=== PATIENT | female | born 1940 | race Caucasian/White ===

== ENCOUNTER 2019-10-26 10:57 | Outpatient (CLI) | payer MEDICARE, SELFPAY ==
--- NOTE | ~2019-10-26 | CT_ITS ---
EXAMINATION: CT chest wo con EXAM DATE: 10/26/2019 11:39 INDICATION: Shortness of breath, interstitial lung disease. TECHNIQUE: Spiral CT of the chest without contrast. Axial, coronal and sagittal images were reviewe d. Coronal maximum intensity pixel images of chest reviewed. The dose-length product (DLP) for this examination was 285.60 mGy-cm. The exposure was tailored according to patient size (auto mA exposur e control), and iterative reconstruction (ASIR) was used as additional dose reduction technique. The re is no prior study for comparison. FINDINGS: There is extensive bilateral interlobular septal thickening with interspersed groundglass opacities, progression in this appearance compared to previous exam. Differential diagnosis includes hypersensitivity pneumonitis and nonspecific interstitial pneumonitis (NSIP) pattern interstitial rene g disease which can be caused by collagen vascular disease, medications/drugs, or can be idiopathic. The main, central pulmonary arteries are dilated which can indicate elevated pulmonary arterial press ure, pulmonary arterial hypertension. There are no pleural or pericardial effusions. Tracheobronch ial tree is patent. Again there are pathologically enlarged hilar and mediastinal lymph nodes, a la rger precarinal lymph node measuring 1.4 x 1.8 cm. There is evidence of severe arteriosclerotic disea se in the aorta at the aortic hiatus. This has also progressed compared to prior study. There is no p neumothorax. There is cardiomegaly. There is moderate coronary arterial calcification, arterial sc lerosis. Upper abdomen is unremarkable. Range again there is a compression fracture at the superio r endplate of T9 with mild to moderate loss of this vertebral body height. There is moderate thoracic disc disease. IMPRESSION: 1. Mild progression in extensive interlobular septal thickening, groundglass opacities. 2. Persistent mediastinal, hilar lymphadenopathy, can be a feature of interstitial lung disease. 3. Severe distal thoracic aortic arterial sclerosis, causing significant narrowing of the aortic lum en. 4. Cardiomegaly. Reviewed, dictated and finalized at location A. R MAKER IMPRESSION: 1. Mild progression in extensive interlobular septal thickening, groundglass o pacities. 2. Persistent mediastinal, hilar lymphadenopathy, can be a feature of intersti tial lung disease. 3. Severe distal thoracic aortic arterial sclerosis, causing significant narro wing of the aortic lumen. 4. Cardiomegaly.
== END 2019-10-26 10:58 | disposition home or self-care (01) ==
PROVIDERS: PCP Family Medicine; Visit Provider Nurse Practitioner Family
DX: R06.02 Shortness of breath (principal); I51.7 Cardiomegaly; R91.8 Other nonspecific abnormal finding of lung field
CPT/HCPCS: 71250

== ENCOUNTER 2019-11-14 08:46 | Emergency (ER) | payer MEDICARE, SELFPAY ==
[2019-11-14] VITALS (13 sets, daily range): BP systolic 103–111; BP diastolic 70–85; PULSE 72–91; RESP 15–31; TEMP 38; O2SAT 77–99
--- NOTE | ~2019-11-14 | XR_ITS ---
XR chest 2V 11/14/2019 09:26 Indication: Cough and dyspnea Procedure: PA and lateral views of the chest Comparison: No prior studies for comparison. Findings: Cardiomegaly. Bilateral airspace disease is present. There is chronic fibrosis in the lung bases. There is atherosclerosis of the aorta. There are advanced degenerative changes of the glenohum eral joints. Impression: 1: Bilateral airspace disease superimposed on chronic pulmonary fibrosis. Differential diagnosis incl udes edema and pneumonia. 2: Cardiomegaly. Reviewed, dictated and finalized at location A. Impression: 1: Bilateral airspace disease superimposed on chronic pulmonary fibrosis. Diffe rential diagnosis includes edema and pneumonia. 2: Cardiomegaly.
--- NOTE | 2019-11-14 08:57 | ECG_ITS ---
Measurements Intervals [place] Rate: 80 P: -27 MO: 198 QRS: -40 QRSD: 94 T: 87 QT: 328 QTc: 379 Interpretive Statements SINUS RHYTHM LEFT AXIS DEVIATION POOR R WAVE PROGRESSION, ANTERIOR LEADS NONSPECIFIC ST & T-WAVE ABNORMALITY- LATERAL LEADS BASELINE WANDER- I BORDERLINE ECG Electronically Signed On 11-14-2019 15:34:10 CDT by Jesse Miguel D.O.
[2019-11-14 09:05] LABS: Basophils Absolute Auto 0.1 K/mm3 (0.0-0.1); Basophils Percent Auto 0.4 % (0.2-1.2); Eosinophils Absolute Auto 0.1 K/mm3 (0-0.3); Eosinophils Percent Auto 0.9 % (0-4.4); Hematocrit 42.9 % (37.0-47.0); Hemoglobin 13.9 g/dL (12.0-15.0); Immature Granulocyte Absolute 0.04 K/mm3 (0.00-0.031); Immature Granulocyte Percent A 0.4 % (0-0.5); Lymphocytes Absolute Auto 2.22 K/mm3 (0.9-3.2); Lymphocytes Percent Auto 19.7 % (18.3-44.2); Mean Corpuscular HGB Conc 32.4 g/dl (32-36); Mean Corpuscular Hemoglobin 30.3 pg (26-34); Mean Corpuscular Volume 93.5 fl (80-100); Mean Platelet Volume 10.7 fl (7.4-10.4); Monocytes Percent Auto 9.2 % (2.6-8.5); Neutrophils Absolute Auto 7.8 K/mm3 (1.3-6.7); Neutrophils Percent Auto 69.4 % (45.5-73.1); Platelet Count Result 243 k/mm3 (150-375); Red Blood Count 4.59 M/mm3 (4.2-5.4); Red Cell Distribution Width 13.7 % (11.5-14.5); White Blood Count 11.3 K/mm3 (4.5-10.0)
[2019-11-14 09:16] LABS: Blood Urea Nitrogen 21 mg/dL (7-17); Calcium 9.1 mg/dL (8.4-10.2); Carbon Dioxide 26 mmol/L (22-30); Chloride 107 mmol/L (98-107); Estimated CRCL calculation 40 ml/min; Estimated Glomerular Filt Rate 53; Glucose 110 mg/dL (65-105); Potassium 3.9 mmol/L (3.4-5.0); Sodium 138 mmol/L (137-145)
[2019-11-14 09:47] LABS: NT Pro B Type Natriuretic Pept 591 PG/ML (5-100)
--- NOTE | 2019-11-14 09:52 | ED.URI ---
HPI - URI/Sore Throat General Chief Complaint: Upper Respiratory Infection Stated Complaint: Cough, dyspnea Time Seen by Provider: 11/14/19 09:08 Source: patient and family Mode of arrival: ambulatory Limitations: no limitations History of Present Illness HPI Narrative: Patient presents with chief complaint of nonproductive cough for 1 week. Patient states that she feels as if she needs to get phlegm up which she cannot. Patient states she also feels increased shortness of breath but states she has had issues with shortness of breath since a knee surgery in 2011. Patient states that prior dyspnea worsens with exertion and when laying flat. Family states that patient has not been wearing her home oxygen lately. Patient is instructed to wear supplemental oxygen between 2 to 3 L at home but has not been wearing it lately as she does not think she needs it. Patient denies having COPD or chronic lung disease despite needing home oxygen. Patient denies any fever, chills, nausea, vomiting, abdominal pain, chest pain, decreased p.o. intake. Patient states that she is a former smoker. Patient has not taken anything to alleviate her symptoms. Patient has recent prolonged travel. Related Data Home Medications Medication Instructions Recorded Confirmed amlodipine 10 mg tablet 10 mg PO DAILY 10/29/19 aspirin 81 mg tablet,delayed 81 mg PO DAILY 10/29/19 release calcium carbonate 600 mg calcium 600 mg PO DAILY 10/29/19 (1,500 mg) tablet cetirizine 10 mg tablet 5 mg PO DAILY PRN 10/29/19 cholecalciferol (vitamin D3) 50 2,000 unit PO DAILY 10/29/19 mcg (2,000 unit) tablet ferrous sulfate 325 mg (65 mg 325 mg PO DAILY 10/29/19 iron) tablet lactobacillus combination no.8 3 3,000 mmu cells PO DAILY 10/29/19 billion cell capsule oxybutynin chloride 10 mg 10 mg PO DAILY 10/29/19 tablet,extended release 24 hr Allergies Allergy/AdvReac Type Severity Reaction Status Date / Time Penicillins Allergy Unknown Verified 09/24/18 12:42 Review of Systems Review of Systems: Narrative: CONSTITUTIONAL: Denies fever, chills, or sweats. EYES: Denies visual changes, redness, or discharge. ENT: Denies rhinorrhea, congestion, sore throat, or otalgia. CARDIOVASCULAR: Denies chest pain, palpitations, or edema. RESPIRATORY: Reports cough or dyspnea. GASTROINTESTINAL: Denies abdominal pain, nausea, vomiting, or diarrhea. GENITOURINARY: Denies dysuria or hematuria. SKIN: Denies rash or itching. MUSCULOSKELETAL: Denies back pain, joint pain, or myalgia. NEUROLOGIC: Denies headache, numbness, dizziness, or weakness. PSYCHIATRIC: Denies anxiety or depression. [facility] Past Medical History Medical History (Updated 11/14/19 @ 10:11 by Sandy Winchester PA-C) CHF (congestive heart failure) Hypertension Impacted cerumen of both ears Low iron Pulmonary fibrosis Family History Family History (Updated 09/24/18 @ 12:46 by DOCTOR UNKNOWN) Other Diabetes mellitus Social History Social History (Updated 10/29/19 @ 11:41 by Padmaja rCouch [facility]) Smoking packs per day: 2 Smoking cigarettes per day: 40.0 Years smoked: 15 Smoking pack-years: 30.00 Smoking status: Former smoker Tobacco type: cigarettes Second hand tobacco smoke exposure: No Smoking end date: 09/08/70 Alcohol intake: current Substance use: never Gender identity (if verbalized by the patient): Female Exam Narrative: Exam Narrative: GENERAL: Well-appearing, well-nourished, and in no acute distress. HEAD: Normocephalic, atraumatic. EYES: PERRLA and EOMI. ENT: Nares clear, no rhinorrhea or epistaxis. Mucous membranes moist. Oropharynx without tonsillar hypertrophy exudate or other lesions. Bilateral TMs pearly wyatt nonbulging. Nasal canula in place at 2L. NECK: Supple. No adenopathy or masses. CHEST: Clear to auscultation. No respiratory distress. No wheezes rales or rhonchi. No tachypnea or labored breathing. Nonproductive cough noted during e
== END 2019-11-14 10:34 | disposition home or self-care (01) ==
PROVIDERS: Physician Assistant; Emergency Provider Emergency Medicine; PCP Family Medicine
DX: J18.1 Lobar pneumonia, unspecified organism (principal); I50.9 Heart failure, unspecified; I11.0 Hypertensive heart disease with heart failure; F17.210 Nicotine dependence, cigarettes, uncomplicated; I51.7 Cardiomegaly; J84.10 Pulmonary fibrosis, unspecified; R94.31 Abnormal electrocardiogram [ECG] [EKG]
CPT/HCPCS: 36415; 71046; 80048; 83880; 85025; 87804; 93005; 99284

== ENCOUNTER 2020-05-23 12:30 | Outpatient (RCR) | payer MEDICARE, SELFPAY ==
--- NOTE | 2020-03-28 16:01 | PTOPEVAL ---
PHYSICAL THERAPY EVALUATION AND PLAN OF CARE 03-28-2020 The PT evaluation was completed for the diagnosis of dorsalgia and weakness. The plan of treatment is scheduled for 2x/week for 4 weeks. Thank you for referring Jacqui Browne to [facility]. Please review, sign, date and return this plan of care LEROY. I agree with and certify that the following plan of care is medically necessary. Referring Physician Date Attending Provider: Lucía Breaux NP *PT Outpatient Evaluation Start: 03/28/20 15:00 Document 03/28/20 15:01 DONTAE (Rec: 03/28/20 15:54 DONTAE [id number]) Therapy Assessment Status Assessment Status Assessment Status Evaluation Outpatient Past Medical History Past Medical History Source of Past Medical History Patient Neurological History Hx Neurological Disorders No Significant History Cardiovascular History Hx Heart Murmur Yes Hx Hypercholesterolemia Yes: meds control Hx Hypertension Yes: meds control Respiratory History Hx Pneumonia Yes Hx Other Respiratory Disorders Yes: LUNG MASS REMOVED 30 YEARS AGO Gastrointestinal History Hx Gastrointestinal Disorders No Significant History Genitourinary History Hx Genitourinary Disorders No Significant History Musculoskeletal History Hx Back Pain Yes Hx Joint Replacement Yes: R KNEE Endocrine History Hx Endocrine Disorders No Significant History Evaluation Information Problem Diagnosis dorsalgia, muscle weakness Onset December 08, 2019 Subjective Information gradual increase in weakness; Query Text:As Reported By Patient/ no falls; Family Prior Level of Function Activity Level (Last 3 Months) Occupation retired Activity of Daily Living Ability Independent Indoor/Home Mobility Independent Community Mobility Independent Stairs Ability Independent Functional Cognition (Planning, Shopping Independent , Taking Medications) Cooking Yes Cleaning Yes Laundry Yes Shopping Yes Driving Yes Home Setting Home Type Apartment,Single Level Environmental Barriers Stairs, None Living Situation Alone Support Available Local Family Support Mobility Assistive Devices (Used Last 3 Cane,Walker, Rollator,Walker, Months) Wheeled Comments Additional Prior Level of Function use 2-3L oxygen, walking Comments distances and increased activity; portable oxygen tank is heavy and hard to carry
--- NOTE | 2020-04-25 14:17 | PTOPEVAL ---
PHYSICAL THERAPY RE-EVALUATION AND UPDATED PLAN OF CARE 04-25-2020 Christa has received a total of 8 PT sessions, from March 28 to today, for the diagnosis of LE weakness, gait and balance. She has improved with R and L LE strength, TUG, Lee balance score; The 2 minute walk test was about the same, she is limited due to SOB. She is independent with her home exercise program for leg strengthening. All of the goals were achieved, except the 2 minute walking distance. Treatment will be discontinued for her leg strength and gait balance. New orders were received for cervicalgia. Her neck was evaluated today and plan of care was updated for treatment of her neck. Thank you for referring Jacqui Browne to [facility].? She is scheduled to be seen for therapy for cervicalgia? 2 x/week for 4 weeks. Please review, sign, date and return this plan of care LEROY. I agree with and certify that the following plan of care is medically necessary. Referring Physician Date Attending Provider: Lucía Breaux NP Document 04/25/20 13:38 DONTAE (Rec: 04/25/20 14:16 DONTAE [id number]) Subjective Information Christa reports: doing better Query Text:As Reported By Patient/ with walking- using cane or Family wheeled walker; am able to do more things than before, because not having as much back pain; doing leg exercises at home; uses oxygen only occasionally at home, when doing more, like laundry, will sit down and rest with oxygen on; wants to finish her therapy for legs and balance. And start treatment for her neck pain; Pain Assessment Timing of Pain Assessment Timing of Pain Assessment Assessment Pain Scale Pain Scale Used Numeric (1 - 10) Self Report Pain Assessment Left Neck Reported Pain Level 0 Pain Description Shooting Pain Frequency Chronic Lowest Pain Intensity 0 Greatest Pain Intensity 10 Other Pain Aggravating Factors turn head to L;shoots pain down L side of neck;if chewing - have to stop Pain Relief Interventions Used By Inactivity/Rest Patient Additional Pain Comments chronic pain in neck; no previous PT Lower Back Reported Pain Level 0 Pain Score Pain Score 0,0: Self Report Cervical and Lumbar ROM Cervical ROM Cervical ROM Comments sitting active cervical ROM: rotation R 40'/ L 35'- no increase pain; flex and ext ranges WNL no increase pain Upper Extremity Range of Motion General Upper Extremity Range of Motion Gross Upper Extremity Range of M
--- NOTE | 2020-05-23 13:26 | PTOPEVAL ---
PHYSICAL THERAPY DISCHARGE 05-23-2020 Mrs. Browne will be discharged from PT services today. Refer to the clinical summary section for her improvements and changes during treatments. Thank you for referring Jacqui Browne to [facility].? Please review, sign, date and return this discharge LEROY. I agree with and certify that the following plan of care is medically necessary. Referring Physician Date Attending Provider: Lucía Breaux NP *PT Outpatient Discharge Document 05/23/20 12:35 DONTAE (Rec: 05/23/20 13:21 DONTAE [id number]) Subjective Information Alice reports she has not had Query Text:As Reported By Patient/ any neck pain for the past 2 Family days; has signed up for on- line exercises classes at [facility] ; is pleased with her improvements since starting PT ; and agrees to discharge from PT services. And is to continue with her home exercises. Pain Assessment Timing of Pain Assessment Timing of Pain Assessment Assessment Self Report Self Report Pain Level 0 Pain Score Pain Score 0: Self Report Additional Pain Score Comments no pain for the past 2 days, before that it was 6/10 in L side neck- sharp and aching; uses heat and position change for pain; Cervical and Lumbar ROM Cervical ROM Cervical ROM Comments cervical rotation to R and L without pain; Upper Extremity Range of Motion General Upper Extremity Range of Motion Gross Upper Extremity Range of Motion standing: shoulder flexion R Comments 110'/ L 105'; reports some pain in L shoulder at end range of motion and harder to breathe. Upper Extremity Muscle Strength Testing General Upper Extremity Strength Gross Upper Extremity Strength Comments standing: cervical rotation stretch, upper traps stretch, cervical retraction x 3 reps; sitting: green theraband B rows and shoulder ER x 10 reps ; Posture Posture Standing Position Posture Evaluation View Posterior Head/C-Spine Posture Forward Head Shoulder Posture (R) Elevated Pelvis Posture Posterior Tilted Additional Posture Comments shoulders behind hips; cues and physical correction for upright trunk/hip position;
== END 2020-05-23 14:25 | disposition home or self-care (01) ==
LOC: ANHPT 12:30
PROVIDERS: PCP Family Medicine; Visit Provider Nurse Practitioner Family
DX: M54.9 Dorsalgia, unspecified (principal); M62.81 Muscle weakness (generalized)
CPT/HCPCS: 97110; 97140; 97161

== ENCOUNTER 2020-05-31 17:44 | Emergency (ER) | payer MEDICARE, SELFPAY ==
--- NOTE | ~2020-05-31 | XR_ITS ---
EXAMINATION: XR chest 1V portable INDICATION: Shortness of breath, hypoxia TECHNIQUE: Portable AP chest at 1927 hours COMPARISON: 11/14/2019; CT, 10/26/2019 FINDINGS: There are chronic airspace opacities with a mid and lower lung zone predominance without si gnificant change. No pleural effusion or pneumothorax is identified. Stable cardiomegaly is noted. 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 IMPRESSION: 1. Stable chronic interstitial lung disease, with a lower lung zone predominance, without significant change. 2. Cardiomegaly. Reviewed, dictated and finalized at location A. IMPRESSION: 1. Stable chronic interstitial lung disease, with a lower lung zone predominanc e, without significant change. 2. Cardiomegaly.
[2020-05-31 17:55] VITALS: BP 113/69; PULSE 79; RESP 14; TEMP 36.8; O2SAT 99
[2020-05-31 19:01] VITALS: BP 103/68; PULSE 78; O2SAT 92
--- NOTE | 2020-05-31 19:19 | ED.GENADULT ---
HPI - General Adult General Chief complaint: Unspecified Stated complaint: low BP Time Seen by Provider: 05/31/20 19:04 Source: patient and family History of Present Illness HPI narrative: Patient 79 years old white female came to the emergency room because of low blood pressure. Patient was shopping at [employer] yesterday got dizzy for few seconds while pushing a shopping cart. Today while doing physical therapy was told that her blood pressure running low 80 over something. At home patient noticed blood pressure 80 over some. Patient denies any headache, dizziness, chest pain, shortness of breath, back pain. Patient also denies any fever, chills, nausea, vomiting, chest pain, shortness of breath or abdominal pain. Patient reports frequent urination for months and currently doing physical therapy for it. Patient on amlodipine 10 mg once a day usually take it at night before she goes to bed. Did not take her blood pressure medicine last night because of the low blood pressure. Currently blood pressure is 103/68. EMS and patient is asymptomatic. Patient son told me that patient does not take her oxygen tank when she go shopping. Usually she is on 2 L and 3 L with walking and activities. Currently patient is not on oxygen. Related Data Home Medications Medication Instructions Recorded Confirmed amlodipine 10 mg tablet 10 mg PO DAILY 10/29/19 02/08/20 aspirin 81 mg tablet,delayed 81 mg PO DAILY 10/29/19 02/08/20 release calcium carbonate 600 mg calcium 600 mg PO DAILY 10/29/19 02/08/20 (1,500 mg) tablet cetirizine 10 mg tablet 5 mg PO DAILY PRN 10/29/19 02/08/20 cholecalciferol (vitamin D3) 50 2,000 unit PO DAILY 10/29/19 02/08/20 mcg (2,000 unit) tablet ferrous sulfate 325 mg (65 mg 325 mg PO DAILY 10/29/19 02/08/20 iron) tablet lactobacillus combination no.8 3 3,000 mmu cells PO DAILY 10/29/19 02/08/20 billion cell capsule oxybutynin chloride 10 mg 10 mg PO DAILY 10/29/19 02/08/20 tablet,extended release 24 hr ibuprofen 200 mg tablet 400 mg PO .prn PRN tablet 12/10/19 02/08/20 Allergies Allergy/AdvReac Type Severity Reaction Status Date / Time Penicillins Allergy Unknown unknown Verified 05/31/20 17:45 Review of Systems Review of Systems: Narrative: CONSTITUTIONAL: Denies fever, chills, or sweats. EYES: Denies visual changes, redness, or discharge. ENT: Denies rhinorrhea, congestion, sore throat, or otalgia. CARDIOVASCULAR: Denies chest pain, palpitations, or edema. RESPIRATORY: Denies cough or dyspnea. GASTROINTESTINAL: Denies abdominal pain, nausea, vomiting, or diarrhea. GENITOURINARY: Denies dysuria or hematuria. SKIN: Denies rash or itching. MUSCULOSKELETAL: Denies back pain, joint pain, or myalgia. NEUROLOGIC: Denies headache, numbness, or weakness. PSYCHIATRIC: Denies anxiety or depression. [facility] Past Medical History Medical History CHF (congestive heart failure) Former smoker 30 pack years. Quit 1970. Hypertension Impacted cerumen of both ears Low iron Pulmonary fibrosis Seasonal allergies Family History Family History Other Diabetes mellitus Social History Social History Smoking packs per day: 2 Smoking cigarettes per day: 40.0 Years smoked: 15 Smoking pack-years: 30.00 Smoking status: Former smoker Tobacco type: cigarettes Second hand tobacco smoke exposure: No Smoking end date: 09/08/70 Alcohol intake: current Substance use: never Gender identity (if verbalized by the patient): Female Exam Narrative: Exam Narrative: General appearance: Well-developed, well-nourished, does not look in pain or distress, slightly labored breathing Skin: Normal color Head: Normocephalic, nontraumatic Eyes: Clear conjunctiva ENT: Oropharynx normal, ears normal, nose normal Neck: Supple, nontender Chest and respiratory:
[2020-05-31 19:30] LABS: Basophils Absolute Auto 0.1 K/mm3 (0.0-0.1); Basophils Percent Auto 0.8 % (0.2-1.2); Eosinophils Absolute Auto 0.3 K/mm3 (0-0.3); Eosinophils Percent Auto 2.6 % (0-4.4); Hematocrit 42.4 % (37.0-47.0); Hemoglobin 14.3 g/dL (12.0-15.0); Immature Granulocyte Absolute 0.04 K/mm3 (0.00-0.031); Immature Granulocyte Percent A 0.4 % (0-0.5); Lymphocytes Absolute Auto 4.06 K/mm3 (0.9-3.2); Lymphocytes Percent Auto 36.6 % (18.3-44.2); Mean Corpuscular HGB Conc 33.7 g/dl (32-36); Mean Corpuscular Hemoglobin 30.7 pg (26-34); Mean Platelet Volume 11.3 fl (7.4-10.4); Monocytes Absolute Auto 0.8 K/mm3 (0.1-0.6); Monocytes Percent Auto 7.4 % (2.6-8.5); Neutrophils Absolute Auto 5.8 K/mm3 (1.3-6.7); Neutrophils Percent Auto 52.2 % (45.5-73.1); Platelet Count Result 279 k/mm3 (150-375); Red Blood Count 4.66 M/mm3 (4.2-5.4); Red Cell Distribution Width 13.6 % (11.5-14.5); White Blood Count 11.1 K/mm3 (4.5-10.0)
[2020-05-31 19:43] LABS: Alanine Aminotransferase 21 U/L (4-35); Albumin Level 4.3 g/dL (3.5-5.1); Alkaline Phosphatase 99 U/L (38-126); Anion Gap 10 mmol/L (8-16); Aspartate Amino Transferase 40 U/L (14-36); Bilirubin,Total 0.7 mg/dL (0.2-1.3); Blood Urea Nitrogen 24 mg/dL (7-17); Carbon Dioxide 22 mmol/L (22-30); Chloride 105 mmol/L (98-107); Estimated CRCL calculation 37 ml/min; Estimated Glomerular Filt Rate 48; Glucose 110 mg/dL (65-105); Sodium 137 mmol/L (137-145)
[2020-05-31 19:53] LABS: NT Pro B Type Natriuretic Pept 1210 PG/ML (5-100)
[2020-05-31 19:55] LABS: Troponin I 0.026 ng/mL (0.000-0.034)
[2020-05-31 20:02] VITALS: BP 107/63; PULSE 68; RESP 18; O2SAT 97
[2020-05-31 20:57] LABS: Add Urine Microscopic? YES; Appearance Urine Clear (Clear); Bacteria Urine 3+ /hpf; Bilirubin Urine Negative (Negative); Blood Urine Negative (Negative); Color Urine Straw (Yellow); Glucose Urine UA Negative (Negative); Ketones Urine Negative (Negative); Leukocyte Esterase Ur 3+ LEU/UL (Negative); Mucus Urine Rare /lpf; Nitrate Urine Negative (Negative); Protein Urine Negative (Negative); RBC Urine 0-2 /hpf (0-2); Specific Grav Ur 1.005 (1.001-1.035); Squamous Epithelial Cell Urine Rare /hpf (Few); Urobilinogen Urine Negative mg/dL (<2.0); WBC Urine 31-50 /hpf
[2020-05-31 21:23] LABS: INR 1.1; Prothrombin Time 13.6 Seconds (11.1-14.7)
[2020-05-31 21:24] LABS: Partial Thromboplastin Time 30.2 SECONDS (22.3-36.8)
[2020-05-31 21:26] LABS: D Dimer 0.66 ug/mL (<0.48)
[2020-05-31 22:15] VITALS: BP 126/84; PULSE 82; RESP 18; TEMP 36.6; O2SAT 98
== END 2020-05-31 22:16 | disposition home or self-care (01) ==
PROVIDERS: Emergency Provider Emergency Medicine; PCP Family Medicine
DX: N39.0 Urinary tract infection, site not specified (principal); Z87.891 Personal history of nicotine dependence; I11.0 Hypertensive heart disease with heart failure; I50.9 Heart failure, unspecified
CPT/HCPCS: 36415; 71045; 80053; 81001; 83880; 84484; 85025; 85380; 85610; 85730; 87077; 87086; 87088; 87186; 96365; 99284; J0696

== ENCOUNTER → 2020-06-08 13:56 | Outpatient (CLI) | payer MEDICARE, SELFPAY ==
--- NOTE | ~2020-06-08 | XR_ITS ---
EXAMINATION: XR chest 2V EXAM DATE: 06/08/2020 14:06 INDICATION: Cough. Afebrile. TECHNIQUE: Frontal and lateral projections of the chest obtained and reviewed. Comparison is made to prior examination from 05/31/2020. FINDINGS: Again there is cardiomegaly and diffuse abnormal reticulation, patient's chronic interstit ial lung disease. Cannot identify any definite superimposed acute infectious process, but given the a ppearance to the lungs sensitivity is relatively low. No pneumothorax or pleural effusion. There is a ortic arteriosclerosis. There are bony degenerative changes. Cervical fusion hardware. IMPRESSION: 1. Cardiomegaly, congestion. 2. Extensive abnormal reticulation, chronic interstitial lung disease without definite superimposed acute infection. Reviewed, dictated and finalized at location A.
== END ==
PROVIDERS: PCP Family Medicine; Visit Provider Nurse Practitioner Family
DX: R05 Cough (principal); I51.7 Cardiomegaly; R91.8 Other nonspecific abnormal finding of lung field
CPT/HCPCS: 71046

== ENCOUNTER 2020-07-11 12:30 | Outpatient (RCR) | payer MEDICARE, SELFPAY ==
--- NOTE | 2020-05-30 15:56 | PTOPEVAL ---
INITIAL PHYSICAL THERAPY EVALUATION and PLAN OF CARE Thank you for referring Jacqui Browne to [facility].? Alice is scheduled to be seen for physical therapy? 1x/week for 6 weeks. Please review, sign, date and return this plan of care LEROY. I agree with and certify that the following plan of care is medically necessary. Referring Physician Date Admitting Provider: Attending Provider: Steffany Correa APRN Referring Provider: *PT Outpatient Evaluation Start: 05/30/20 14:46 Freq: Status: Active Protocol: Document 05/30/20 14:35 ZEN (Rec: 05/30/20 15:56 ZEN [id number]) Therapy Assessment Status Assessment Status Assessment Status Evaluation Outpatient Past Medical History Past Medical History Source of Past Medical History Recalled from Previous Visit, Confirmed with Patient/Family Neurological History Hx Neurological Disorders No Significant History Cardiovascular History Hx Heart Murmur Yes Hx Hypercholesterolemia Yes: meds control Hx Hypertension Yes: meds control Respiratory History Hx Pneumonia Yes Hx Other Respiratory Disorders Yes: R LUNG MASS REMOVED 30 YEARS AGO Gastrointestinal History Hx Gastrointestinal Disorders No Significant History Genitourinary History Hx Genitourinary Disorders No Significant History Musculoskeletal History Hx Back Pain Yes: sciatica Hx Joint Replacement Yes: R KNEE Hx Orthopedic Surgery Yes: 2012- had cervical surgery ? fusion; Hx Other Musculoskeletal Disorders Yes: cervical pain/dysfunction Endocrine History Hx Endocrine Disorders No Significant History Evaluation Information Problem Diagnosis urinary frequency, urinary urgency Onset since November 2019 - worsened Subjective Information always has had to go to Query Text:As Reported By Patient/ bathroom frequently - every 2- Family 2.5 hours, but now getting up frequently at night for urination - 2-3 times/night Worse in standing, cooking dinner Wants to get off of bladder medication. Prior Level of Function Activity Level (Last 3 Months) Hand Dominance Right Medications Home Meds (Include: OTC, RX, Vitamins, didn't bring medication list, Herbals, Dose, Route,and Frequency) taking pill for urinary Query Text:Home Med Entries Will No frequency Longer Recall From Past Visits. Home Meds Must Be Re-entered With Each Visit. Home Setting Home Type Apartment Environmental Barriers Phu White
--- NOTE | 2020-07-11 13:21 | PTOPEVAL ---
PHYSICAL THERAPY DISCHARGE SUMMARY Thank you for referring Jacqui Browne to [facility].? Alice has been seen in PT x 7 visit. Goals have been met and she is ready to continue on her own with her HEP. I agree with Alice's discharge from PT. Referring Physician Date Admitting Provider: Attending Provider: Steffany Correa APRN Referring Provider: *PT Outpatient Evaluation Start: 05/30/20 14:46 Freq: Status: Active Protocol: Document 07/11/20 12:40 ZEN (Rec: 07/11/20 13:21 ZEN [id number]) Therapy Assessment Status Assessment Status Assessment Status Discharge Evaluation Information Problem Subjective Information Alice reports that she isn't Query Text:As Reported By Patient/ concerned about leaking when Family she goes out now. She will wear a pad - but seldom soils it. Still getting up 2x/night - once about 1:30-2:00 and 6: 00-6:30. Feels that she is at least 50% improved. The deep breathing really helps delay urination. Going to return to usual exercise class online - encouraged to continue with pelvic floor exercises with exercises from exercise group. Pain Assessment Timing of Pain Assessment Timing of Pain Assessment Assessment Self Report Self Report Pain Level 0 Pain Score Pain Score 0: Self Report Pelvic Health Evaluation Pelvic Floor Assessment Permission Received for External/ just did external work Internal Perineal Exam Sustained Levator Ani Strength 3 Quick Levator Ani Contraction in 15 9 Seconds Rehab Teaching Rehab Teaching Teaching Topic Rehab Teaching Topic Components Exercise,Home Program As Pertains To Technique Recipient Patient Learning Preferences Audio,Demonstration,Discussion ,One-on-One Instruction,Visual ,Written Barriers to Learning None Readiness to Learn Excellent Response Returns Demonstration, Verbalizes Understanding Method Demonstration,Discussion,One- On-One Instruction Additional Rehab Teaching Comments reviewed importance of continuing with HEP on a usual basis PT Clinical Summary Clinical Summary Protocol: PTEVCODE PT Clinical Summary Incontinence
== END 2020-07-12 10:53 | disposition home or self-care (01) ==
LOC: ANHPT 12:30
PROVIDERS: PCP Family Medicine; Visit Provider Nurse Practitioner Adult Health
DX: R35.0 Frequency of micturition (principal); R39.15 Urgency of urination
CPT/HCPCS: 97110; 97161

== ENCOUNTER 2020-09-12 14:28 | Outpatient (CLI) | payer MEDICARE, SELFPAY ==
--- NOTE | ~2020-09-12 | MM_ITS ---
EXAMINATION: MM screening steffen BI w eleazar HISTORY: Screening mammogram TECHNIQUE: Craniocaudal and mediolateral oblique 3-D tomosynthesis images were obtained and synthetic 2-D images were generated. CAD analysis was submitted and interpreted. COMPARISON: No prior mammogram is available for comparison at this institution. BREAST PARENCHYMAL COMPOSITION: The breasts are almost entirely fatty. FINDINGS: Scattered benign-appearing calcifications are present. There is no evidence of suspicious m ass, calcification, or architectural distortion to suggest malignancy in either breast. IMPRESSION: 1. No mammographic evidence of malignancy. 2. Recommend routine screening mammography in one year. BI-RADS Category 2: Benign finding(s). Reviewed, dictated and finalized at location A. ING MACHINE OPERATOR
== END 2020-09-12 14:29 | disposition home or self-care (01) ==
PROVIDERS: PCP Family Medicine; Visit Provider Nurse Practitioner Family
DX: Z12.31 Encounter for screening mammogram for malignant neoplasm of breast (principal)
CPT/HCPCS: 77063; 77067

== ENCOUNTER 2020-12-01 08:56 | Outpatient (CLI) | payer MEDICARE, SELFPAY ==
[2020-12-01 09:15] VITALS: PULSE 74; O2SAT 92
[2020-12-01 09:20] VITALS: PULSE 87; O2SAT 85
[2020-12-01 09:25] VITALS: PULSE 92; O2SAT 87
[2020-12-01 09:30] VITALS: PULSE 99; O2SAT 88
[2020-12-01 09:35] VITALS: PULSE 102; O2SAT 90
[2020-12-01 09:45] VITALS: PULSE 74; O2SAT 92
--- NOTE | 2020-12-01 10:15 | HOMEO2EVAL ---
Home Oxygen Evaluation RC: Home Oxygen (O2) Evaluation Start: 12/01/20 10:10 Freq: Status: Active Protocol: RPE Activity Type Activity Date Activity User E-Sign Co-Sign Detail Recorded Client Recorded Date Recorded By Document 12/01/20 09:15 [email or web address] [id number] 12/01/20 10:15 DJO Document 12/01/20 09:20 [email or web address] [id number] 12/01/20 10:15 DJO Document 12/01/20 09:25 [email or web address] [email or web address] 12/01/20 10:15 DJO Document 12/01/20 09:30 [email or web address] [email or web address] 12/01/20 10:15 DJO Document 12/01/20 09:35 [email or web address] [email or web address] 12/01/20 10:15 DJO Document 12/01/20 09:45 [email or web address] [email or web address] 12/01/20 10:15 DJO 12/01/20 12/01/20 12/01/20 09:15 09:20 09:25 Home O2 Evaluation Test Phase Resting Exercise Exercise Oxygen Delivery Room Air Room Air Nasal Cannula Oxygen Flow Rate (L/min) 1 Pulse Oximetry (90-100 %) 92 85 L 87 L Pulse Rate (60-100 beats/min) 74 87 92 Activity Tolerance Ambulation Distance (feet) Treatment Charges O2 Evaluation - Outpatient 12/01/20 12/01/20 12/01/20 09:30 09:35 09:45 Home O2 Evaluation Test Phase Exercise Exercise Resting Oxygen Delivery Nasal Cannula Nasal Cannula Room Air Oxygen Flow Rate (L/min) 2 3 Pulse Oximetry (90-100 %) 88 L 90 92 Pulse Rate (60-100 beats/min) 99 102 H 74 Activity Tolerance Fair Ambulation Distance (feet) 200 Treatment Charges
--- NOTE | 2020-12-02 15:13 | WPDPFTINT ---
PFT Interpretation This PFT met all criteria for ATS standards and reproducibility FEV/FVC post bronchodilator 75% FEV1 61% FVC 62% or 1.53 L TLC 51% RV 42% RV/TLC 39% DLCO 27% when adjusted for alveolar volume but not adjusted for hemoglobin Flow volume loops showed a restrictive pattern Impression: A restrictive ventilatory defect is present with very severely reduced diffusion capacity. This pattern is suggestive of interstitial lung disease but other differentials or contributing factors may be obesity, neuromuscular disease or diaphragmatic weakness. Clinical correlation is advised.
== END 2020-12-01 08:57 | disposition home or self-care (01) ==
PROVIDERS: PCP Family Medicine; Visit Provider Nurse Practitioner Family
DX: J84.9 Interstitial pulmonary disease, unspecified (principal); R06.02 Shortness of breath; R94.2 Abnormal results of pulmonary function studies
CPT/HCPCS: 94060; 94618; 94726; 94729

== ENCOUNTER 2021-03-28 14:06 | Outpatient (CLI) | payer MEDICARE, SELFPAY ==
--- NOTE | ~2021-03-28 | US_ITS ---
EXAMINATION: US arterial ankle brachial ind DATE: 03/28/2021 15:13 INDICATION: Right leg swelling and discoloration TECHNIQUE: Segmental pressures and plethysmographic and Doppler waveforms of the brachial and lower e xtremity arteries were obtained. COMPARISON: None. FINDINGS: Right and left brachial artery pressures of 85 mm Hg and 127 mm Hg, respectively, are disconcordant ( normal difference <= 30 mmHg). The right ankle-brachial index (TAMEKA) is 0.89 (normal >= 0.9-1.0). The right great toe-brachial index (TBI) is 0.70 (normal >= 0.65). Arterial Doppler waveforms are biphasic. The left TAMEKA is 0.66. The left TBI is 0.39. Arterial Doppler waveforms low amplitude monophasic. IMPRESSION: Diminished left TAMEKA of 0.66 Diminished left TBI of 0.39 Reviewed, dictated and finalized at Location A. Reviewed, dictated and finalized at location A.
== END 2021-03-28 14:07 | disposition home or self-care (01) ==
PROVIDERS: PCP Family Medicine; Visit Provider Nurse Practitioner Family
DX: R09.89 Other specified symptoms and signs involving the circulatory and respiratory systems (principal)
CPT/HCPCS: 93922

== ENCOUNTER 2021-06-04 10:26 | Outpatient (CLI) | payer MEDICARE, SELFPAY ==
--- NOTE | ~2021-06-04 | CT_ITS ---
EXAMINATION: CT chest high resolution [facility] EXAM DATE: 06/04/2021 10:50 INDICATION: J84.9 - Interstitial pulmonary disease, unspecified. TECHNIQUE: Spiral CT of the chest without contrast. HRCT. Axial, coronal and sagittal images of the chest were reviewed. Coronal maximum intensity pixel images of chest reviewed. The dose-length prod uct (DLP) for this examination was 205.79 mGy-cm. The exposure was tailored according to patient siz e (auto mA exposure control), and iterative reconstruction (ASIR) was used as additional dose reducti on technique. Comparison is made to prior examination from 10/26/2019. FINDINGS: There is moderate to severe irregular septal thickening seen with peripheral bibasilar pred ominance and areas of groundglass opacity. Likely chronic process, consistent with Nonspecific Inter stitial Pneumonitis (NSIP) pattern interstitial lung disease with many possible underlying etiologies including collagen vascular disease, medications/drugs, prior viral infection (COVID-19), hypersensi tivity pneumonitis, idiopathic etiologies. Compared to previous examination there appears to be sligh t interval improvement in the groundglass opacities. The main, central pulmonary arteries are dilated which can indicate elevated pulmonary arterial press ure, pulmonary arterial hypertension. There are no pleural or pericardial effusions. Tracheobronch ial tree is patent. Again there are pathologically enlarged hilar and mediastinal lymph nodes, a la rger precarinal lymph node measuring 1.4 x 1.8 cm. This can be a feature of interstitial lung disease which would be favored over malignancy given stability. There is no pneumothorax. There is cardiomegaly. There is moderate coronary arterial calcification , arterial sclerosis. There are is severe arteriosclerosis in the upper abdominal aorta, uncertain h ow much of this if any is patent. There is chronic compression fracture at the superior endplate of T9 with mild to moderate loss of this vertebral body height. There is moderate thoracic disc disease . IMPRESSION: 1. 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 2. Stable mediastinal, hilar lymphadenopathy. 3. Severe distal thoracic aortic arterial sclerosis, causing significant narrowing of the aortic lum en. Leriche syndrome? 4. Cardiomegaly. Pulmonary arterial hypertension. Reviewed, dictated and finalized at location A. IMPRESSION: 1. 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 2. Stable mediastinal, hilar lymphadenopathy. 3. Severe distal thoracic aortic arterial sclerosis, causing significant narro wing of the aortic lumen. Leriche syndrome? 4. Cardiomegaly. Pulmonary arterial hypertension.
== END 2021-06-04 10:27 | disposition home or self-care (01) ==
LOC: ANHIMG 10:31
PROVIDERS: PCP Family Medicine; Visit Provider Internal Medicine Critical Care Medicine
DX: J84.9 Interstitial pulmonary disease, unspecified (principal); I27.20 Pulmonary hypertension, unspecified; I51.7 Cardiomegaly; R91.8 Other nonspecific abnormal finding of lung field
CPT/HCPCS: 71250

== ENCOUNTER 2021-09-02 13:48 | Inpatient (IN) | payer MEDICARE, SELFPAY ==
[2021-09-02] VITALS (7 sets, daily range): BP systolic 79–142; BP diastolic 57–95; PULSE 78–102; RESP 18–23; TEMP 36.7; O2SAT 18–97
--- NOTE | ~2021-09-02 | XR_ITS ---
XR chest 2V DATE: 09/02/2021 14:10 INDICATION: Shortness of breath TECHNIQUE: AP and lateral views COMPARISON: 06/04/2021 CT chest high resolution scan 06/08/2022 view chest FINDINGS: There are prominent patchy diffuse bilateral pulmonary infiltrates superimposed upon bilate ral chronic fibrotic changes. Differential mass for the pulmonary infiltrates includes pneumonia and/ or pulmonary edema. Cardiomegaly and aortic calcification. No pneumothorax. Osteoarthritic change at the glenohumeral joints. Diffuse osteopenia. IMPRESSION: Extensive patchy bilateral pulmonary infiltrates superimposed upon bilateral chronic fibr otic changes; differential diagnosis for the pulmonary infiltrates includes pneumonia and/or pulmonar y edema Reviewed, dictated and finalized at location A. DIEM NURSE IMPRESSION: Extensive patchy bilateral pulmonary infiltrates superimposed upon bilateral chronic fibrotic changes; differential diagnosis for the pulmonary in filtrates includes pneumonia and/or pulmonary edema
--- NOTE | ~2021-09-02 | XR_ITS ---
EXAMINATION: XR chest 1V portable DATE: 09/10/2021 08:55 INDICATION: Interstitial lung disease. Pneumonia. TECHNIQUE: A single frontal view of the chest was obtained. COMPARISON: Chest single view 09/06/2021, chest CT 09/02/2021, chest 2 views 06/08/2020 FINDINGS: There are airspace and interstitial opacities throughout the lungs bilaterally. There is a staple line in right lower lung zone. No pleural effusion or pneumothorax. Cardiomegaly is noted. IMPRESSION: 1. Stable diffuse lung disease, consistent with pneumonia versus pulmonary edema superimposed on diesel bus mechanic casandra interstitial lung disease. 2. Cardiomegaly. Reviewed, dictated and finalized at location A. ER MOUTH CUTTER IMPRESSION: 1. Stable diffuse lung disease, consistent with pneumonia versus pulmonary larry a superimposed on chronic interstitial lung disease. 2. Cardiomegaly.
--- NOTE | ~2021-09-02 | CT_ITS ---
EXAMINATION: CTA chest PE protocol DATE: 09/02/2021 23:32 INDICATION: Hypoxia. Dyspnea. TECHNIQUE: Computed tomography angiography (CTA) of the chest was performed with 100 mL Omnipaque-350 intravenous contrast timed to evaluate the pulmonary arteries. Coronal maximum intensity projection 3D-reconstructions were created by the technologist. Automated exposure control and iterative reconst ruction technique were employed. The dose-length product was 639.00 mGy-cm. COMPARISON: Chest CT 06/04/2021, 10/30/2018 FINDINGS: There are airspace and groundglass opacities and septal thickening throughout the lungs ramona aterally. There are small pleural effusions. Cardiomegaly is noted. There are coronary artery calcifi cations. No pericardial effusion. Mediastinal lymphadenopathy is noted. For example, a right paratrac heal node measures 2.5 x 2.5 cm, increased from 2.2 x 1.9 cm on 10/10/2018. There is no pulmonary embol us. There is a 12 mm mass in right adrenal gland, stable from 10/30/2018, likely an adenoma. There is severe thoracic spondylosis. There is a chronic burst fracture of T9. IMPRESSION: 1. No pulmonary embolus. Sensitivity is mildly decreased by motion artifact. 2. Diffuse lung disease, consistent with pneumonia versus pulmonary edema superimposed on chronic int erstitial lung disease. 3. Small pleural effusions. 4. Cardiomegaly. 5. Worsened chronic mediastinal lymphadenopathy, likely reactive. Reviewed, dictated and finalized at location B. H FIXER IMPRESSION: 1. No pulmonary embolus. Sensitivity is mildly decreased by motion artifact. 2. Diffuse lung disease, consistent with pneumonia versus pulmonary edema super imposed on chronic interstitial lung disease. 3. Small pleural effusions. 4. Cardiomegaly. 5. Worsened chronic mediastinal lymphadenopathy, likely reactive.
--- NOTE | ~2021-09-02 | US_ITS ---
EXAMINATION: US carotid duplex BI DATE: 09/03/2021 11:44 INDICATION: Syncope. Weakness. Carotid and cerebral atherosclerosis. TECHNIQUE: Grayscale, color Doppler, and pulsed Doppler images of the cervical carotid arteries were obtained. The degree of vessel stenosis is placed in one of the following categories: normal, <50%, 5 0-69%, >=70% but less than near-occlusion, near-occlusion, or total occlusion. Note that percent sten osis relative to normal distal artery lumen diameter is indirectly measured from velocity measurement s as described by Vasiliy, et al. Radiology 2003; [id number]. COMPARISON: None. FINDINGS: RIGHT: The right common carotid artery (CCA) peak systolic velocity (PSV) is 57 cm/s. The right internal car otid artery (ICA) PSV is 69 cm/s. The right ICA end-diastolic velocity (EDV) is 46 cm/s. The right IC A/CCA PSV ratio is 1.2. Grayscale and color Doppler images yield an estimate of <50% diameter reducti on from plaque in the ICA. The external carotid artery (ECA) PSV is 27 cm/s. There is antegrade flow in the right vertebral artery. LEFT: The left CCA PSV is 26 cm/s. The left ICA PSV is 64 cm/s. The left ICA EDV is 21 cm/s. The left ICA/C CA PSV ratio is 2.5. Grayscale and color Doppler images yield an estimate of <50% diameter reduction from plaque in the ICA. The ECA PSV is 49 cm/s. There is antegrade flow in the left vertebral artery. IMPRESSION: 1. <50% stenosis in the right internal carotid artery. 2. <50% stenosis in the left internal carotid artery. 3. Cardiac arrhythmia is present. Correlate with EKG. Reviewed, dictated and finalized at location H. DENTIAL CARPENTER
--- NOTE | ~2021-09-02 | CT_ITS ---
EXAMINATION: CT brain wo con DATE: 09/02/2021 17:27 INDICATION: Syncope and weakness TECHNIQUE: Computed tomography (CT) of the head was performed without intravenous contrast. Sagittal and coronal reconstructions were performed. The mA was adjusted according to patient size. Iterative reconstruction technique was employed. The dose-length product was 908.00 mGy-cm. COMPARISON: None FINDINGS: No acute intracranial hemorrhage, acute infarction or abnormal extra axial fluid collection. There is mild scattered white matter hypoattenuation consistent with chronic small vessel ischemic disease. S ymmetric prominence of the sulci consistent with mild age-appropriate diffuse cerebral volume loss. V entricles are normal and symmetric. No mass/mass effect. Changes of bilateral intraocular lens replac ement. The orbits, paranasal sinuses and mastoid air cells are normal. Intracranial calcified cerebra l atherosclerosis is noted. IMPRESSION: 1. No acute intracranial process. 2. Age-related changes including mild diffuse volume loss and mild scattered white matter hypoattenua tion consistent with chronic small vessel schema disease. Reviewed, dictated and finalized at location H. N SALES REPRESENTATIVE IMPRESSION: 1. No acute intracranial process. 2. Age-related changes including mild diffuse volume loss and mild scattered wh ite matter hypoattenuation consistent with chronic small vessel schema disease.
--- NOTE | ~2021-09-02 | XR_ITS ---
EXAMINATION: XR chest 1V portable DATE: 09/04/2021 08:53 INDICATION: Pneumonia. Congestive heart failure. TECHNIQUE: frontal view of the chest was obtained. COMPARISON: Chest radiograph dated 09/02/2021 FINDINGS: Increased interstitial and airspace opacities throughout both lungs. No pneumothorax or definitive pl eural effusion. Cardiomegaly. Atherosclerotic aorta. IMPRESSION: 1. No significant change in extensive bilateral interstitial and airspace opacities which could repre sent pneumonia and/or pulmonary edema. 2. Cardiomegaly. Reviewed, dictated and finalized at location A. RAL PRE NEED CONSULTANT IMPRESSION: 1. No significant change in extensive bilateral interstitial and airspace opaci ties which could represent pneumonia and/or pulmonary edema. 2. Cardiomegaly.
--- NOTE | ~2021-09-02 | XR_ITS ---
EXAMINATION: XR chest 1V portable DATE: 09/06/2021 09:28 INDICATION: Shortness of breath. TECHNIQUE: A single frontal view of the chest was obtained. COMPARISON: Chest single view 09/04/2021, chest CT 09/02/2021 FINDINGS: There are airspace and interstitial opacities throughout the lungs bilaterally. There is a staple line in right lower lung zone. No pleural effusion or pneumothorax. Cardiomegaly is noted. IMPRESSION: 1. Stable diffuse lung disease, consistent with pneumonia versus pulmonary edema superimposed on motor vehicle compliance analyst casandra interstitial lung disease. 2. Cardiomegaly. Reviewed, dictated and finalized at location B. TER CUTTER IMPRESSION: 1. Stable diffuse lung disease, consistent with pneumonia versus pulmonary larry a superimposed on chronic interstitial lung disease. 2. Cardiomegaly.
--- NOTE | 2021-09-02 13:59 | ECG_ITS ---
Measurements Intervals [place] Rate: 84 P: SC: 0 QRS: -39 QRSD: 91 T: 80 QT: 360 QTc: 428 Interpretive Statements ATRIAL FIBRILLATION LEFT AXIS DEVIATION BORDERLINE ST-T WAVE ABNORMALITY- HIGH LATERAL LEADS BASELINE ARTIFACT- I, II, III, AVR, AVL, AVF, V1-V6 ABNORMAL ECG Electronically Signed On 09-02-2021 17:51:14 [employer] by Jesse Miguel D.O.
[2021-09-02] MEDS: SODIUM CHLORIDE 0.9% IV 1,000 ML 999 ML IV CONT ×2 (14:22→21:55)
[2021-09-02 14:49] LABS: Basophils Absolute Auto 0.1 K/mm3 (0.0-0.1); Basophils Percent Auto 0.5 % (0.2-1.2); Eosinophils Absolute Auto 0.1 K/mm3 (0-0.3); Eosinophils Percent Auto 0.5 % (0-4.4); Hematocrit 37.3 % (37.0-47.0); Hemoglobin 12.2 g/dL (12.0-15.0); Immature Granulocyte Absolute 0.07 K/mm3 (0.00-0.031); Immature Granulocyte Percent A 0.5 % (0-0.5); Lymphocytes Absolute Auto 1.88 K/mm3 (0.9-3.2); Lymphocytes Percent Auto 14.6 % (18.3-44.2); Mean Corpuscular HGB Conc 32.7 g/dl (32-36); Mean Corpuscular Hemoglobin 30.7 pg (26-34); Mean Corpuscular Volume 93.7 fl (80-100); Mean Platelet Volume 10.4 fl (7.4-10.4); Monocytes Absolute Auto 1.3 K/mm3 (0.1-0.6); Monocytes Percent Auto 10.2 % (2.6-8.5); Neutrophils Absolute Auto 9.5 K/mm3 (1.3-6.7); Neutrophils Percent Auto 73.7 % (45.5-73.1); Platelet Count Result 254 k/mm3 (150-375); Red Blood Count 3.98 M/mm3 (4.2-5.4); Red Cell Distribution Width 14.2 % (11.5-14.5); White Blood Count 12.9 K/mm3 (4.5-10.0)
--- NOTE | 2021-09-02 14:57 | ED.SYNCOPE ---
HPI - Syncope General Chief Complaint: Syncope Stated Complaint: LOW BP, CONFUSION Time Seen by Provider: 09/02/21 13:53 Source: patient, family, EMS and RN notes reviewed Mode of arrival: EMS Limitations: no limitations History of Present Illness HPI narrative: Patient is 80 years old white female brought to the emergency room by ambulance/her son is telling me that patient does live by herself and has been with the family over the last 3 days. The patient told her son that her blood pressure been weak and low for the last 3 to 5 weeks, family physician was contacted, blood pressure stopped, 6:00 this morning patient found laying down on the ground because she blacked out, denies any injuries. Patient been feeling fainting since, patient is fully vaccinated and boosted for Covid. Patient is DNR. Related Data Home Medications Medication Instructions Recorded Confirmed aspirin 81 mg tablet,delayed 81 mg PO DAILY 10/29/19 07/27/21 release calcium carbonate 600 mg calcium 600 mg PO DAILY 10/29/19 07/27/21 (1,500 mg) tablet cholecalciferol (vitamin D3) 50 2,000 unit PO DAILY 10/29/19 07/27/21 mcg (2,000 unit) tablet ferrous sulfate 325 mg (65 mg 325 mg PO DAILY 10/29/19 07/27/21 iron) tablet amlodipine 5 mg tablet 5 mg PO DAILY 06/08/20 07/27/21 ibuprofen 200 mg tablet 400 mg PO ONCE PRN tablet 06/18/21 07/27/21 Allergies Allergy/AdvReac Type Severity Reaction Status Date / Time Penicillins Allergy Unknown unknown Verified 07/27/21 10:57 Review of Systems Review of Systems: CONSTITUTIONAL: Denies fever, chills, or sweats. EYES: Denies visual changes, redness, or discharge. ENT: Denies rhinorrhea, congestion, sore throat, or otalgia. CARDIOVASCULAR: Denies chest pain, palpitations, or edema. RESPIRATORY: Denies cough or dyspnea. GASTROINTESTINAL: Denies abdominal pain, nausea, vomiting, or diarrhea. GENITOURINARY: Denies dysuria or hematuria. SKIN: Denies rash or itching. MUSCULOSKELETAL: Denies back pain, joint pain, or myalgia. NEUROLOGIC: Denies headache, numbness, or weakness. PSYCHIATRIC: Denies anxiety or depression. [facility] Past Medical History Medical History CHF (congestive heart failure) Diminished pulses in lower extremity Former smoker 30 pack years. Quit 1970. Hyperlipidemia Hypertension Impacted cerumen of both ears Interstitial lung disease Low iron LINDY (obstructive sleep apnea) Pulmonary fibrosis Seasonal allergies Sinus drainage Family History Family History Other Diabetes mellitus Social History Social History Social History: , moved back to [place] from [place] 2017. Son lives in [facility]. Very active, still driving. Smoking packs per day: 2.5 Smoking cigarettes per day: 50.0 Years smoked: 15 Smoking pack-years: 37.50 Smoking status: Former smoker Tobacco type: cigarettes Second hand tobacco smoke exposure: No Smoking end date: 09/08/70 Alcohol intake: current Alcohol use details: Occasionally. Substance use: never Gender identity (if verbalized by the patient): Female Exam Narrative: General appearance: Well-developed, well-nourished Skin: Normal color Head: Normocephalic, nontraumatic Eyes: Clear conjunctiva ENT: Oropharynx normal, ears normal, nose normal Neck: Supple, nontender Chest and respiratory: Airway patent, no respiratory distress, no accessory muscle use Heart: Regular rate/rhythm Abdomen: Soft, nontender, no organomegaly, quiet bowel sounds Vascular: Normal peripheral pulses, normal capillary refill. Musculoskeletal: Normal range of motion, nontender back Neurologic: Alert and oriented ?3, CLOTH HAULER is normal as tested, no gross motor deficit
[2021-09-02 15:03] LABS: Lactic Acid Reflex 1.1 mmol/L (0.7-2.1)
[2021-09-02 15:08] LABS: Alanine Aminotransferase 22 U/L (4-35); Albumin Level 3.2 g/dL (3.5-5.1); Alkaline Phosphatase 78 U/L (38-126); Anion Gap 1 mmol/L (8-16); Aspartate Amino Transferase 29 U/L (14-36); Bilirubin,Total 0.8 mg/dL (0.2-1.3); Blood Urea Nitrogen 21 mg/dL (7-17); Calcium 8.5 mg/dL (8.4-10.2); Carbon Dioxide 25 mmol/L (22-30); Chloride 110 mmol/L (98-107); Estimated CRCL calculation 49 ml/min; Estimated Glomerular Filt Rate > 60; Glucose 97 mg/dL (65-110); Potassium 3.9 mmol/L (3.4-5.0); Sodium 136 mmol/L (137-145)
[2021-09-02 15:11] LABS: INR 1.1; NT Pro B Type Natriuretic Pept 3160 pg/mL (5-100); Prothrombin Time 14.5 Seconds (11.1-14.7)
[2021-09-02] MEDS: SODIUM CHLORIDE 0.9% IV 1,000 ML 999 ML (15:11)
[2021-09-02 15:12] LABS: Partial Thromboplastin Time 36.6 SECONDS (22.3-36.8); Troponin I 0.028 ng/mL (0.000-0.034)
--- NOTE | 2021-09-02 16:55 | PM.IMHP ---
H&P: HPI History of Present Illness Date/Time: 09/02/21 16:55 Chief Complaint: Syncope. Narrative: This is a pleasant 80-year-old female with chronic respiratory failure on p.r.n. oxygen, chronic interstitial lung disease, sleep apnea, hypertension, coronary artery disease, peripheral vascular disease, and anemia who presented to the emergency department earlier today via EMS from home for evaluation after a syncopal episode. She reports recurrent, intermittent episodes of lightheadedness and near-syncope over the past 2 to 3 weeks and she has noticed that her blood pressures have been running much lower than usual, as low as 80 systolic. She reportedly spoke with her primary care provider recently and she was instructed to stop taking her blood pressure medications however it sounds like she did take them yesterday. Because she has continued to have near syncopal episode she has been staying with her son for the last 3 days. Earlier today while exiting the bathroom she began to feel lightheaded and reports visual changes and sudden onset of weakness. She had a brief loss of consciousness and fell forward onto the floor though luckily she did not sustain any injuries. On arrival to the emergency department her vital signs were stable though she has had intermittent systolic blood pressures to the 80s systolic, improved with IV fluid rehydration. Brain CT showed no acute findings and chest x-ray showed extensive patchy bilateral pulmonary infiltrates superimposed chronic bilateral fibrotic changes and she is being admitted in this setting. With further questioning she does endorse a productive cough and sinus congestion and mentions that her grandson tested positive for COVID recently. Additionally she is followed by Dr. Montes (pulmonology) and in fact earlier this month she was started on a prednisone taper. The patient believes that her symptoms started not long after completing the prednisone taper. She denies fever, chills, sweats, headache, neck ache, sore throat, chest pain, pleuritic pain, palpitations, orthopnea, PND, change in smell and taste, nausea, vomiting, and diarrhea. She received COVID vaccinations including a booster. Review of Systems Review of Systems: Twelve systems were reviewed. She ambulates with a cane. She denies focal weakness and paresthesias. She takes MiraLax for issues with constipation typically has a bowel movement every 2 days. She believe she has gained a small amount of weight since being on the prednisone taper but nothing significant. No dysuria, incontinence, or urinary frequency or hesitancy. Except as documented, all other systems were reviewed and are documented. [facility] Past Medical History Medical History (Updated 09/02/21 @ 23:16 by Samra Carrasco PA-C) Aortic stenosis [id number] on echocardiogram in October 2018 with a valve area of 1.1 centimeter squared. Congestive heart failure Echocardiogram in October 2018 showed a normal LV size and function with moderate concentric left ventricular hypertrophy and impaired diastolic relaxation grade 1 with an EF of 55 to 60%. Coronary artery disease Former smoker 30 pack years. Quit 1970. Hyperlipidemia Hypertension Interstitial lung disease Obstructive sleep apnea on CPAP Seasonal allergies Surgical History Surgical History History of arthroplasty of right knee History of cervical spinal surgery History of left-sided carotid endarterectomy (2013) Family History Family History Other Diabetes mellitus Social History Social History (Updated 09/02/21 @ 22:57 by Samra Carrasco PA-C) Social History: The patient is and lives in her own home in [place]. She lives in [facility] for many years and moved back to the area in 2018. She designates her son, London Browne, as her surrogate decision maker and she wishes to be a do n
[2021-09-02 17:06] LABS: CRP 18.5 mg/dL (<1.0)
[2021-09-02] MEDS: ALBUTEROL SULFATE NEB 2.5 MG/0.5 ML INH 5 MG INHALATION ×2 (20:14)
[2021-09-02] MEDS: SODIUM CHLORIDE 0.9% IV 1,000 ML 100 ML IV CONT (20:33)
[2021-09-02] MEDS: IPRATROPIUM BR 0.02% INH SOLN 0.5 MG/2.5 ML VIAL INHALATION (20:38)
--- NOTE | 2021-09-02 20:53 | PC.NURSE ---
per juan miguel meza - wide open bolus the fluids at this time. DAISY Callahan at bedside to change fluid rate.
[2021-09-02 20:59] LABS: EDCOVIDSCREEN Negative (Negative)
[2021-09-02 21:42] LABS: Lactate Dehydrogenase 793 U/L (313-618)
[2021-09-02 21:49] LABS: Base Excess ABG -5.3 mEq/l (+/-2.0); HCO3 ABG 19.6 mEq/l (22.0-26.0); PCO2 ABG 36.6 mmHg (35.0-45.0); PO2 ABG 52.4 mmHg (80.0-100.0); pH ABG 7.347 (7.350-7.450)
[2021-09-02 21:50] LABS: Oxygen Saturation ABG 85.6 % (95.0-100.0)
[2021-09-02 21:51] LABS: Alveolar/Arterial O2 Gradient 219.6 mmHg; Oxygen Content ABG 16.4 %vol (16.0-22.0)
[2021-09-02 21:52] LABS: Carboxyhemoglobin 0.9 % THb (0-2.0); Methemoglobin ABG 0.4 %THb (0-1.5); Oxyhemoglobin 83.3 % THb (90.0-100.0); PO2 FiO2 Ratio Arterial Blood 1.19 %; Reduced Hemoglobin 15.4 %THb (0-5.0)
[2021-09-02 21:53] LABS: Device NASAL CANNULA; Fractional Inspired Oxygen 44 %; Modified Allen's Test Pass; Site Drawn LEFT RADIAL
[2021-09-02 21:55] LABS: D Dimer 1.35 ug/mL (<0.48)
[2021-09-02 21:55] LABS: Troponin I 0.023 ng/mL (0.000-0.034)
[2021-09-02 22:47] LABS: EDCOVIDSCREEN Negative (Negative)
--- NOTE | 2021-09-02 23:57 | ADMGEN ---
This patient, Jacqui Browne, was admitted to IMU Room 205-02 at 2330. Patient/family oriented to hospital policies and general routines including ID bracelet, bed and alarms, visiting hours, pain management, procedures, bathroom and other care routines, personal items, smoking policy, room service/diet, and visiting hours. Information on how to activate the Rapid Response Team has been discussed. Patient/Family are encouraged to report perceived risks to care and to ask questions if they do not understand what they are told or what they should do.
[2021-09-03] VITALS (19 sets, daily range): BP systolic 93–113; BP diastolic 41–87; PULSE 76–100; RESP 16–24; TEMP 36.3–36.7; O2SAT 94–98; BMI 30.9
[2021-09-03] MEDS: methylPREDNISolone SOD SUCC 125 MG VIAL IV PUSH (01:34)
[2021-09-03] MEDS: FUROSEMIDE INJ 40 MG/4 ML VIAL 20 MG IV PUSH (02:23)
[2021-09-03] MEDS: ALBUTEROL SULFATE NEB 2.5 MG/0.5 ML INH INHALATION ×2 (03:17→14:29)
[2021-09-03] MEDS: IPRATROPIUM BR 0.02% INH SOLN 0.5 MG/2.5 ML VIAL INHALATION ×2 (03:18→14:29)
[2021-09-03 05:16] LABS: Basophils Percent Auto 0.1 % (0.2-1.2); Hematocrit 39.4 % (37.0-47.0); Hemoglobin 12.7 g/dL (12.0-15.0); Immature Granulocyte Percent A 0.7 % (0-0.5); Lymphocytes Absolute Auto 0.77 K/mm3 (0.9-3.2); Lymphocytes Percent Auto 5.1 % (18.3-44.2); Mean Corpuscular HGB Conc 32.2 g/dl (32-36); Mean Corpuscular Hemoglobin 30.3 pg (26-34); Mean Platelet Volume 10.5 fl (7.4-10.4); Monocytes Absolute Auto 0.4 K/mm3 (0.1-0.6); Monocytes Percent Auto 2.4 % (2.6-8.5); Neutrophils Absolute Auto 13.9 K/mm3 (1.3-6.7); Neutrophils Percent Auto 91.7 % (45.5-73.1); Platelet Count Result 286 k/mm3 (150-375); Red Blood Count 4.19 M/mm3 (4.2-5.4); Red Cell Distribution Width 14.4 % (11.5-14.5); White Blood Count 15.2 K/mm3 (4.5-10.0)
[2021-09-03 05:43] LABS: Alanine Aminotransferase 20 U/L (4-35); Albumin Level 3.2 g/dL (3.5-5.1); Alkaline Phosphatase 83 U/L (38-126); Anion Gap 8 mmol/L (8-16); Aspartate Amino Transferase 28 U/L (14-36); Bilirubin,Total 0.9 mg/dL (0.2-1.3); Blood Urea Nitrogen 15 mg/dL (7-17); Calcium 8.3 mg/dL (8.4-10.2); Carbon Dioxide 22 mmol/L (22-30); Chloride 110 mmol/L (98-107); Estimated CRCL calculation 55 ml/min; Estimated Glomerular Filt Rate > 60; Glucose 152 mg/dL (65-110); Magnesium 1.8 mg/dL (1.6-2.3); Potassium 3.6 mmol/L (3.4-5.0); Sodium 140 mmol/L (137-145)
[2021-09-03 06:01] LABS: CRP 17.5 mg/dL (<1.0)
[2021-09-03 06:10] LABS: Thyroid Stimulating Hormone Reflex 0.755 uIU/mL (0.465-4.68)
[2021-09-03] MEDS: ENOXAPARIN 40 MG/0.4 ML SYRINGE SUB-Q (08:37)
--- NOTE | 2021-09-03 10:55 | PCRCNOTE ---
Window of time for administration has passed. See next scheduled administration.
[2021-09-03] MEDS: LORATADINE 10 MG TABLET PO (12:16)
[2021-09-03] MEDS: CALCIUM CARBONATE (OSCAL) 500 MG TABLET PO (12:16)
[2021-09-03] MEDS: CHOLECALCIFEROL 1,000 UNITS TABLET 2000 UNITS PO (12:16)
[2021-09-03] MEDS: FLUTICASONE PROPIONATE 0.05% NA SPR 16 GM BTL (*BKC) 2 SPRAY NASAL ×2 (12:16→20:37)
[2021-09-03] MEDS: ASPIRIN 81 MG ENTERIC TABLET PO (12:17)
[2021-09-03] MEDS: ATORVASTATIN 40 MG TABLET PO (12:17)
[2021-09-03] MEDS: FERROUS SULFATE 324 MG TABLET PO (12:17)
--- NOTE | 2021-09-03 14:18 | PM.CNPUL ---
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 Patient has been vaccinated including the booster and there is a possible exposure history to COVID recently. She was also found to have atrial fibrillation. patient has been treated with antibiotics for possible community-acquired pneumonia. The differential diagnosis based on the chest CT findings includes Covid pneumonia or Congestive heart failure, given the bilateral symmetrical infiltrates pleural effusions elevated BNP and atrial fibrillation which is most likely new. Of note the patient has moderate to severe aortic stenosis per echo done in May of 2021. worsening of her interstitial lung disease seems unlikely as patient has been on oral steroids. staph pneumonia also seems to be very unlikely as patient does not look septic. Plan is as follows; while waiting for COVID 19 testing, I would keep the patient in isolation continue with BiPAP support 04/11, supplemental oxygen, and restart patient on prednisone 20 mg she was on prior to coming to the hospital. I would get a echocardiogram and consider Cardiology consultation for aortic stenosis a new ones and atrial fibrillation. I would discontinue vancomycin at this point. The case was discussed with the hospitalist (2) Congestive heart failure: Qualifiers: Heart failure type: unspecified Heart failure chronicity: unspecified Qualified Code(s): I50.9 - Heart failure, unspecified Code(s): I50.9 - Heart failure, unspecified Status: Acute (3) VICENTE positive: Code(s): R76.8 - Other specified abnormal immunological findings in serum Status: Acute (4) Interstitial lung disease: Code(s): J84.9 - Interstitial pulmonary disease, unspecified Status: Acute (5) Aortic stenosis: Qualifiers: Cardiac valve disease etiology: etiology unspecified Qualified Code(s): I35.0 - Nonrheumatic aortic (valve) stenosis Code(s): I35.0 - Nonrheumatic aortic (valve) stenosis Status: Acute History of Present Illness History of Present Illness Consult date: 09/03/21 Chief complaint: Syncope,Pneumonia,Hypotension Narrative: This 80-year-old female presented with a 1 day history of shortness of breath and low blood pressure. 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 Patient stated that she was in her usual state of health until the day of admission when she found to have low blood pressure. reportedly the patient had syncopal episodes and intermittent episodes of lightheadedness over the past 2-3 weeks prior to coming to the hospital. On the day of admission she found the blood pressure was low in the range of 80 systolic. she also had some shortness of breath but no chest pain, palpitations hemoptysis cough wheezing or fever chills. when evaluated in the emergency room she was found to have a systolic blood pressure around 80 which improved with IV fluids. She had a brain CT that showed no acute findings, a chest x-ray showed extensive patchy bilateral infiltrates superimposed on chronic fibrotic changes. She was recently exposed to COVID as her grandson tested positive. patient is fully vaccinated including boost. Patient recently started on oral steroids for interstitial lung disease, most likely NSIP. She had positive VICENTE
[2021-09-03] MEDS: predniSONE 20 MG TABLET PO (16:14)
--- NOTE | 2021-09-03 17:22 | PM.IMPN ---
Progress Note: A&P Assessment and Plan (1) Syncope: Code(s): R55 - Syncope and collapse Status: Acute Assessment and Plan: Presumably related to drops in blood pressures given patient's history though cannot rule out cardiac dysrhythmia. She will be monitored on telemetry overnight and an echocardiogram and carotid Doppler ultrasounds have been ordered for further evaluation. Initiate fall precautions. Monitor orthostatic vital signs Q shift. 09/03/2021 Interval history patient with history chronic interstitial lung disease been seen by pulmonology and had been treated with steroid presented emergency depart with syncopal episode, hypotension and shortness of breath, patient seen by pulmonology and suspect syncopal episode possibly secondary to severe aortic stenosis, will do the cardiac echo and consult hair or beauty salon manager for further recommendation, CTA of the chest did not show pulmonary emboli it does show pneumonia versus pulmonary edema, patient is gently diuresed being treated with antibiotics, is also concern patient may have COVID-19 tested an isolated, patient also found to have new onset atrial fibrillation patient states feeling much better compared to when she arrived, will continue to monitor and further recommendation to follow. (2) Hypotension: Code(s): I95.9 - Hypotension, unspecified Status: Acute Assessment and Plan: I am not certain why her blood pressures are dropping. She may be intravascularly depleted. Sepsis is also a consideration given findings of pneumonia on imaging. Accidental overdose seems less likely. She was recently placed on a steroid taper though adrenal insufficiency seems less likely; her electrolytes are well within normal limits. She will be cautiously hydrated and antihypertensives have been placed on hold. Patient is amenable to central line and vasopressors if needed. (3) Acute and chronic respiratory failure with hypoxia: Code(s): J96.21 - Acute and chronic respiratory failure with hypoxia Status: Acute Assessment and Plan: Secondary to pulmonary infiltrates, presumably pneumonia. Her BNP is elevated thus CHF is also consideration though given her soft blood pressures I think she may be on the dry side. Pulmonary embolism is also consideration and with her elevated D-dimer and a CTA of the chest has been ordered. (4) Bilateral pneumonia: Code(s): J18.9 - Pneumonia, unspecified organism Status: Acute Assessment and Plan: I discussed the patient's case with Dr. Montes via phone and she suggests broad-spectrum antibiotics (cefepime, azithromycin, and vancomycin) at this time given concerns for sepsis. Will give 1 dose of Solu-Medrol as well. Pulmonology input is appreciated. (5) Person under investigation for COVID-19: Code(s): Z20.822 - Contact with and (suspected) exposure to COVID-19 Status: Acute Assessment and Plan: Patient is received her COVID vaccinations and booster though given community prevalence she has been tested for COVID and she will remain in isolation pending SARS-CoV-2 by PCR. (6) Congestive heart failure: Qualifiers: Heart failure type: unspecified Heart failure chronicity: unspecified Qualified Code(s): I50.9 - Heart failure, unspecified Code(s): I50.9 - Heart failure, unspecified Status: Acute Assessment and Plan: Monitor volume status closely while cautiously hydrating. Repeat echocardiogram in a.m. (7) Interstitial lung disease: Code(s): J84.9 - Interstitial pulmonary disease, unspecified Status: Acute Assessment and Plan: Plan is as detailed above. Dr. Montes has been consulted and her input is appreciated. (8) Atrial fibrillation: Code(s): I48.91 - Unspecified atrial fibrillation Status: Acute Assessment and Plan: This seems to be a new diagnosis for the patient and may very well be related
--- NOTE | 2021-09-03 17:55 | PM.CNCAR ---
Assessment and Plan Additional Plan This is an 80-year-old lady with chronic aortic valve stenosis that is being followed longitudinally in our office by Dr. Teixeira. She also has significant interstitial lung disease according to the charts and imaging that is available for review this evening. She presented to the hospital after falling, possibly having a brief syncopal episode a at a family home celebrating the iday. She was found after admission to be in atrial fibrillation which is new for her. We do not have any way to determine how long she has been out of sinus rhythm. He had symptoms that allowed me to conclude the atrial fib is new in onset. She did not have it about 3 months ago when she was seen in the office. For this reason she cannot be safely cardioverted at this time she does need to be anticoagulated systemically. At this time she does not need any medications for rate control indicating she does have a element of AV node dysfunction as well. An echocardiogram has been appropriately ordered to re-evaluate the condition of her aortic valve. The patient states that there have been discussions in our office that she potentially would be a candidate for a TAVR procedure if it was indicated at some point. Her desire to be DNR would certainly affect her candidacy for that sort of procedure. We will start oral anticoagulation and review her echocardiogram. Artis Rangel MD [facility] History of Present Illness History of Present Illness Consult date/time: 09/03/21 17:55 Consult reason: atrial fibrillation and aortic stenosis Reason For Visit: Syncope,Pneumonia,Hypotension Narrative: This is a pleasant 80-year-old lady that I see this evening at the request of the hospitalist because of atrial fibrillation in the setting of known aortic valve stenosis. The patient is unknown to me prior to this encounter but does follow-up with Dr. Teixeira in our office because of her history of aortic valve disease. She last saw him in the office in May of this year and at that time did not report any new symptomatology she has been having chronic exertional shortness of breath that has been attributed mostly to her interstitial lung disease. She also at the time of that office appointment expressed concerns about her blood pressure being lower than it typically runs. According to the chart she has a history of previous longstanding hypertension but is been tapered down to a small dose of amlodipine which has now been stopped. She was brought to the hospital yesterday after she was visiting family for the and had a fall in the hallway of the house. The patient believes she probably lost consciousness momentarily and fell to the floor. She does not remember being in any other distress prior to or after the fall and if she did lose consciousness she thinks it was just for a moment. In any event following this she is brought in for evaluation. According to the chart she has a longstanding history of relatively severe interstitial lung disease and follows with pulmonology for that. She does also have a history of moderate to severe aortic valve stenosis which has been followed longitudinally in our office as mentioned above. She in this setting is being seen in consultation. During the admission yesterday and electrocardiogram was of course done which demonstrates atrial fibrillation with a controlled ventricular response. She has been anticoagulated with Lovenox and an echocardiogram has been ordered. She has not had any pauses or ventricular arrhythmias on telemetry. According to the records she has no previous history of atrial fibrillation and she cannot remember being told of this in the past. The patient is an elderly lady who does not perform any significant physical exertion at this point she uses a walker and a cane for ambulation about her house. She did is able to perform her activities of daily living independen
[2021-09-03 19:04] LABS: SARS-CoV-2 RNA PCR Negative
[2021-09-03] MEDS: APIXABAN 5 MG TABLET PO (20:37)
--- NOTE | 2021-09-03 23:28 | PCRCNOTE ---
Window of time for administration has passed. See next scheduled administration.
[2021-09-04] VITALS (19 sets, daily range): BP systolic 94–115; BP diastolic 50–82; PULSE 46–109; RESP 14–20; TEMP 36.2–36.6; O2SAT 82–99
[2021-09-04] MEDS: ALBUTEROL SULFATE NEB 2.5 MG/0.5 ML INH INHALATION ×3 (08:48→21:49)
[2021-09-04] MEDS: IPRATROPIUM BR 0.02% INH SOLN 0.5 MG/2.5 ML VIAL INHALATION ×3 (08:48→21:49)
[2021-09-04] MEDS: ASPIRIN 81 MG ENTERIC TABLET PO (09:19)
[2021-09-04] MEDS: APIXABAN 5 MG TABLET PO ×2 (09:20→21:08)
[2021-09-04] MEDS: predniSONE 20 MG TABLET PO (09:20)
[2021-09-04] MEDS: FERROUS SULFATE 324 MG TABLET PO (09:20)
[2021-09-04] MEDS: CALCIUM CARBONATE (OSCAL) 500 MG TABLET PO (09:20)
[2021-09-04] MEDS: ATORVASTATIN 40 MG TABLET PO (09:20)
[2021-09-04] MEDS: CHOLECALCIFEROL 1,000 UNITS TABLET 2000 UNITS PO (09:20)
[2021-09-04] MEDS: FLUTICASONE PROPIONATE 0.05% NA SPR 16 GM BTL (*BKC) 2 SPRAY NASAL ×2 (09:20→21:07)
--- NOTE | 2021-09-04 09:41 | PM.PNPUL ---
Progress Note: A&P Assessment and Plan (1) Acute and chronic respiratory failure with hypoxia: Code(s): J96.21 - Acute and chronic respiratory failure with hypoxia Status: Acute Assessment and Plan: 80-year-old female with a history of interstitial lung disease recently started on treatment with oral steroids for possible pulmonary fibrosis with autoimmune features, presented with near-syncope, hypoxemia and bilateral pulmonary infiltrates as well as small pleural effusions bilaterally. patient has been on treatment for possible community-acquired pneumonia, oral steroid dose was started. Over the last 24 hours her respiratory clinical status has been stable or maybe slightly improved given the lower oxygen flow she is on this a.m.. Cardiology evaluation pending. Patient has history of severe aortic stenosis and these worsening of bilateral infiltrates could very well be related to congestive heart failure especially with the bilateral pleural effusions that are not usually seen in exacerbations of interstitial lung disease. Plan is as follows. Continue with current antibiotic regiment, could consider gentle diuresis with IV Lasix if Cardiology has no objections to it given the severe aortic stenosis. Continue with the current dose of oral prednisone. (2) Congestive heart failure: Qualifiers: Heart failure type: unspecified Heart failure chronicity: unspecified Qualified Code(s): I50.9 - Heart failure, unspecified Code(s): I50.9 - Heart failure, unspecified Status: Acute (3) Atrial fibrillation: Qualifiers: Atrial fibrillation type: unspecified Qualified Code(s): I48.91 - Unspecified atrial fibrillation Code(s): I48.91 - Unspecified atrial fibrillation Status: Acute (4) Aortic stenosis: Qualifiers: Cardiac valve disease etiology: etiology unspecified Qualified Code(s): I35.0 - Nonrheumatic aortic (valve) stenosis Code(s): I35.0 - Nonrheumatic aortic (valve) stenosis Status: Acute (5) LINDY (obstructive sleep apnea): Code(s): G47.33 - Obstructive sleep apnea (adult) (pediatric) Status: Acute (6) Interstitial lung disease: Code(s): J84.9 - Interstitial pulmonary disease, unspecified Status: Acute Subjective Date/time seen: 09/04/21 09:41 Respiratory status is unchanged over the last 24 hours. supplemental oxygen flow decreased from 10 liters/minute down to 6 liters/minute. Patient slept well last night; she has no new respiratory treatments complaints. She was not placed on BiPAP support last night. Chest x-ray done this a.m. is essentially unchanged. Echocardiogram done this a.m. started on a direct anticoagulant for AFib. COVID PCR test negative. She is receiving antibiotics for community-acquired pneumonia. Has not been started on diuretic get. Review of Systems Review of Systems: All systems reviewed & are unremarkable except as noted in HPI and below ( H and P and below) Exam Narrative: GENERAL APPEARANCE: Well developed, well nourished, alert and cooperative, and appears to be in mild respiratory distress while breathing supplemental oxygen via nasal cannula SKIN: Inspection of the skin reveals no rashes, ulcerations or petechiae. HEENT: Sclerae anicteric and conjunctivae pink and moist. Extraocular movements were intact and pupils were equal, round. NECK: Supple. There was no thyroid enlargement, and no tenderness, or masses were felt. LUNGS: Auscultation of the lungs revealed rare crackles at bases posteriorly, no wheezing CARDIAC: There was an irregular rate and rhythm, systolic ejection murmur at apex ABDOMEN: Soft and nontender with normal bowel sounds. There was no organomegaly. LYMPH NODES: No lymphadenopathy was appreciated in the neck. NEUROLOGIC: Alert and oriented x 3. Normal affect. Objective Data Vital Signs Vital Signs: Vital Signs - 24 hr 09/03/21 10:00 09/03/21 12:00 1
--- NOTE | 2021-09-04 10:09 | PM.IMPN ---
Progress Note: A&P Assessment and Plan (1) Syncope: Code(s): R55 - Syncope and collapse Status: Acute Assessment and Plan: Hx. chronic aortic valve stenosis followed by Dr. Teixeira. Hx. significant interstitial lung disease followed by Dr. Montes. Fell at [place], had a brief syncopal episode, admitted, found to have new onset A.Fib. Started on Eliquis. Echo showed worsening Aortic Stenosis and need for TAVR. Continue telemetry Clear carotid Doppler ultrasounds on fall precautions. Monitor orthostatic vital signs Q shift. no further episodes, no drops in BP. (2) Hypotension: Code(s): I95.9 - Hypotension, unspecified Status: Acute Assessment and Plan: was likely intermittently hypotensive due to hypoxia or more likely related to new onset A.fib. Sepsis is also a consideration given findings of pneumonia on imaging. Was rehydrated Holding antihypertensives initially BPs are marginal, 96/70. Stable. (3) Acute and chronic respiratory failure with hypoxia: Code(s): J96.21 - Acute and chronic respiratory failure with hypoxia Status: Acute Assessment and Plan: Secondary to pulmonary infiltrates, presumably pneumonia. Highly likely related to severity of Aortic Stenosis now. BNP is elevated likely related to Heart /valve function. elevated D-dimer 1.35 , started on Eliquis CTA chest : no pulmonary embolus. Diffuse lung disease, consistent with pneumonia versus pulmonary edema superimposed on chronic interstitial lung disease.Small pleural effusions. Worsened chronic mediastinal lymphadenopathy, likely reactive. WBC up to 15.2 yesterday, but may have been steroid related. No fevers. (4) Bilateral pneumonia: Code(s): J18.9 - Pneumonia, unspecified organism Status: Acute Assessment and Plan: Interlocking Tower Operator Dr. Montes suggested broad-spectrum antibiotics (cefepime, azithromycin, and vancomycin) given concerns for sepsis. also given 1 dose of Solu-Medrol as well. low dose prednisone dosing continues per Dr. Hogan. ordered incentive spirometer today now off overnight CPAP, weaned from 10 L to 6 L CXR repeated. Ordered Sputum culture. IS ordered. Nebs. Flonase.Mucinex. IV Cef/Azithro/Vanc. Prednisone. Pulmonology following and treating (5) Person under investigation for COVID-19: Code(s): Z20.822 - Contact with and (suspected) exposure to COVID-19 Status: Acute Assessment and Plan: Patient is received her COVID vaccinations and booster though given community prevalence covid negative. (6) Congestive heart failure: Qualifiers: Heart failure chronicity: unspecified Heart failure type: unspecified Qualified Code(s): I50.9 - Heart failure, unspecified Code(s): I50.9 - Heart failure, unspecified Status: Acute Assessment and Plan: Monitor volume status closely hydrate or diurese as needed. Echo repeated, worse Aortic stenosis. BNP 3160 on 09/02, then on 09/03 she got 20mg IV lasix. No lasix today. BNP in morning. no swelling, no wheezing. (7) Interstitial lung disease: Code(s): J84.9 - Interstitial pulmonary disease, unspecified Status: Acute Assessment and Plan: Plan is as detailed above. Interlocking Tower Operator has been consulted and her input is appreciated. has improved from 10L to 6 L O2 NC, she was on 3-4 L O2 at home. Interlocking Tower Operator has continued her IV Cefepime/Azithro/Vanc for CAP prednisone with history of interstitial disease. biopsy history. BNP 3160 on 09/02, then on 09/03 she got 20mg IV lasix. No lasix today. No wheezing today, repeating BNP in morning. Continue following pulmonary recommendations. (8) Atrial fibrillation: Qualifiers: Atrial fibrillation type: unspecified Qualified Code(s): I48.91 - Unspecified atrial fibrillation Code(s): I48.91 - Unspecified atrial fibrillation Status: Acute Assessment and Plan: new diagnosis for
--- NOTE | 2021-09-04 11:15 | PM.PNCARD ---
Progress Note: A&P Assessment and Plan (1) Aortic stenosis: Qualifiers: Cardiac valve disease etiology: etiology unspecified Qualified Code(s): I35.0 - Nonrheumatic aortic (valve) stenosis Code(s): I35.0 - Nonrheumatic aortic (valve) stenosis Status: Acute Assessment and Plan: History of aortic stenosis followed in our office by Dr. Teixeira. Echo has been performed to re-evaluate the severity of her . This has been performed but not yet interpreted. Further recommendations upon review of echo. (2) Atrial fibrillation: Qualifiers: Atrial fibrillation type: unspecified Qualified Code(s): I48.91 - Unspecified atrial fibrillation Code(s): I48.91 - Unspecified atrial fibrillation Status: Acute Assessment and Plan: This is a new diagnosis this admission. Her rate is controlled in the absence of any AV radha agents and she is asymptomatic with this arrhythmia at this time. She has been started on systemic anticoagulation with apixaban. Monitor for bleeding. (3) Syncope: Code(s): R55 - Syncope and collapse Status: Acute Assessment and Plan: Etiology of this remains unknown. Perhaps hypotension, intravascular volume depletion? Probably not related to her arrhythmia but this certainly cannot be excluded. She has not experienced any further syncope during this admission. (4) Acute and chronic respiratory failure with hypoxia: Code(s): J96.21 - Acute and chronic respiratory failure with hypoxia Status: Acute Assessment and Plan: Pneumonia superimposed on chronic lung disease. Management per primary service. Subjective Date/time seen: 09/04/21 11:15 Interval history: Cardiology follow up for aortic stenosis, atrial fibrillation Date of service 09/04/2021: Feeling okay today, has complaint of fatigue. Denies any chest pain, palpitations, worsening shortness of breath, syncope, presyncope. Remains rate controlled in atrial fibrillation. Review of Systems Constitutional: Constitutional: Reports fatigue Eyes: Eyes: Reports no additional eye complaints ENT: Reports system reviewed and no additional complaints, except as documented Cardiovascular: Cardiovascular: Reports no additional cardiovascular complaints and Reports dyspnea on exertion Respiratory: Respiratory: Reports dyspnea on exertion Gastrointestinal: Gastrointestinal: Reports no additional gastrointestinal complaints Musculoskeletal: Musculoskeletal: Reports no additional musculoskeletal complaints Neurologic: Reports as per HPI Endocrine: Endocrine: Reports no additional endocrine complaints and Reports fatigue Hematologic/Lymphatic: Hematologic/Lymphatic: Reports no additional hematologic/lymphatic complaints Allergic/Immunologic: Allergic/Immunologic: Reports no additional allergic/immunologic complaints Exam Const: General: comfortable and no acute distress Other: Pleasant elderly lady napping in the chair. Awakens to voice. HENMT: Mouth: Yes moist mucous membranes Eyes: Sclera: sclerae normal Pupils: Equal, round and reactive pupils present Neck: Neck: supple and no JVD Resp: Effort & Inspection: normal respiratory effort Auscultation: rales and diminished lung sounds Cardio: Rate: regular rate Rhythm: abnormal rhythm irregularly irregular Heart sounds: Murmur heart sound present systolic II/ and at the base GI: Auscultation: normal bowel sounds Skin: General skin exam: normal color Neuro: Cranial nerves: Yes Equal, round and reactive pupils present Cognition (Neuro): normal cognition Extrem: General: normal to inspection Objective Data Vital Signs Vital Signs: Vital Signs - 24 hr 09/03/21 12:00 09/03/21 12:15 09/03/21 14:00 Temperature Pulse Rate 78 76 Respiratory Rate Blood Pressure 113/87 Pulse Oximetry 97 09/03/21 14:29 09/03/21 14:30 09/03/21 16:00 Temperature 36.3 C L Pulse Rate 80 80 92
--- NOTE | 2021-09-04 19:29 | PC.NURSE ---
This patient, Jacqui Browne, was transferred to [facility] on 09/04/21 at 1929. Personal belongings sent with patient. Report given to DAISY Smith. Appropriate documentation sent with patient.
--- NOTE | 2021-09-04 20:00 | PC.NURSE ---
PT ARRIVED FROM IMU TO ROOM 242.
[2021-09-04] MEDS: guaiFENesin 12 HR 600 MG TABCR PO (21:07)
[2021-09-04] MEDS: SENNA/DOCUSATE SODIUM TABLET 1 TAB PO (21:08)
[2021-09-04 22:26] LABS: Hematocrit 34.6 % (37.0-47.0); Hemoglobin 11.2 g/dL (12.0-15.0); Mean Corpuscular HGB Conc 32.4 g/dl (32-36); Mean Corpuscular Hemoglobin 30.6 pg (26-34); Mean Corpuscular Volume 94.5 fl (80-100); Mean Platelet Volume 9.8 fl (7.4-10.4); Platelet Count Result 301 k/mm3 (150-375); Red Blood Count 3.66 M/mm3 (4.2-5.4); Red Cell Distribution Width 14.3 % (11.5-14.5); White Blood Count 21.4 K/mm3 (4.5-10.0)
[2021-09-04 22:40] LABS: Anion Gap -1 mmol/L (8-16); Blood Urea Nitrogen 26 mg/dL (7-17); Calcium 8.8 mg/dL (8.4-10.2); Carbon Dioxide 27 mmol/L (22-30); Chloride 110 mmol/L (98-107); Estimated CRCL calculation 50 ml/min; Estimated Glomerular Filt Rate > 60; Glucose 149 mg/dL (65-110); Potassium 4.3 mmol/L (3.4-5.0); Sodium 136 mmol/L (137-145)
--- NOTE | 2021-09-04 23:08 | ECHO_ITS ---
Patient Info Name: Jacqui Browne Age: 80 years : 1940 Gender: Female Ht: 63 in Wt: 175 lbs BSA: 1.91 m2 HR: 84 bpm BP: 113 / 76 mmHg Heart Rhythm: Atrial Fibrillation Technical Quality: Fair Exam Date: 09/04/2021 7:41 AM Exam Location: [facility] Patient Status: Inpatient Admit Date: 09/03/2021 Staff Ordering Physician: Samra Carrasco PA-C Supervisor Smoke Control: Josefina Quevedo RDCS Attending Provider: Suzanne Quinones NP Referring Physician: Luna CONNORS; Exam Type: CA echo doppler color flow Study Info Indications - Aortic Stenosis, CAD, Afib, HTN, ILD Complete two-dimensional, color flow and Doppler transthoracic echocardiogram is performed. Summary 1. Complete two-dimensional, color flow and Doppler transthoracic echocardiogram is performed. 2. Left ventricular chamber dimension is normal. 3. Left ventricular systolic function is normal, estimated at 55-60%. 4. There is mildly increased left ventricular wall thickness. 5. The left ventricular diastolic function is indeterminate. 6. The apical cap is hypokinetic. 7. Left atrial chamber dimension is severely enlarged. 8. Right atrial chamber dimension is mildly enlarged. 9. There is moderate to severe aortic valve stenosis with a peak velocity of 262 cm/s, mean gradient of 12 mmHg, and aortic valve area of 0.8 cm2. 10. There is mild aortic valve regurgitation. 11. There is moderate aortic valve calcification. 12. The mitral valve has thickened leaflets. 13. There is mild mitral valve regurgitation. 14. There is moderate tricuspid valve regurgitation. 15. Moderate pulmonary hypertension, estimated pulmonary arterial systolic pressure is 48 mmHg. 16. There is mild pulmonic regurgitation. Left Ventricle Left ventricular chamber dimension is normal. Left ventricular systolic function is normal, estimated at 55-60%. There is mildly increased left ventricular wall thickness. The left ventricular diastolic function is indeterminate. The apical cap is hypokinetic. All other carreon appear normal. Right Ventricle Right ventricular chamber dimension is normal. Right ventricular systolic function is normal. Left Atria Left atrial chamber dimension is severely enlarged. Right Atria Right atrial chamber dimension is mildly enlarged. Atrial Septum Intact interatrial septum visualized by color flow imaging. Aortic Valve There is moderate to severe aortic valve stenosis with a peak velocity of 262 cm/s, mean gradient of 12 mmHg, and aortic valve area of 0.8 cm2. There is mild aortic valve regurgitation. There is moderate aortic valve calcification. Pulmonic Valve The pulmonic valve is normal. There is no pulmonic valve stenosis. There is mild pulmonic regurgitation. Mitral Valve The mitral valve has thickened leaflets. There is no mitral valve stenosis. There is mild mitral valve regurgitation. Tricuspid Valve The tricuspid valve leaflets are normal. There is no significant tricuspid valve stenosis. There is moderate tricuspid valve regurgitation. Moderate pulmonary hypertension, estimated pulmonary arterial systolic pressure is 48 mmHg. Pericardium/Pleural The pericardium appears normal. There is trivial pericardial effusion. Inferior Vena Cava Dilated inferior vena cava with >50% collapse upon inspiration consistent with elevated right atrial pressure, 10 mmHg. Aorta The aortic root size at the sinus of Valsalva is normal. Left Ventricular Out
[2021-09-05] VITALS (23 sets, daily range): BP systolic 70–119; BP diastolic 50–75; PULSE 57–110; RESP 16–22; TEMP 36–36.6; O2SAT 90–98
[2021-09-05] MEDS: IPRATROPIUM BR 0.02% INH SOLN 0.5 MG/2.5 ML VIAL INHALATION ×4 (04:42→20:12)
[2021-09-05] MEDS: ALBUTEROL SULFATE NEB 2.5 MG/0.5 ML INH INHALATION ×4 (04:42→20:12)
[2021-09-05 05:58] LABS: Hematocrit 37.4 % (37.0-47.0); Hemoglobin 11.8 g/dL (12.0-15.0); Mean Corpuscular HGB Conc 31.6 g/dl (32-36); Mean Corpuscular Hemoglobin 30.2 pg (26-34); Mean Corpuscular Volume 95.7 fl (80-100); Mean Platelet Volume 10.2 fl (7.4-10.4); Platelet Count Result 303 k/mm3 (150-375); Red Blood Count 3.91 M/mm3 (4.2-5.4); Red Cell Distribution Width 14.4 % (11.5-14.5); White Blood Count 19.7 K/mm3 (4.5-10.0)
[2021-09-05 06:15] LABS: Anion Gap 5 mmol/L (8-16); Blood Urea Nitrogen 25 mg/dL (7-17); Calcium 8.9 mg/dL (8.4-10.2); Carbon Dioxide 26 mmol/L (22-30); Chloride 109 mmol/L (98-107); Estimated CRCL calculation 46 ml/min; Estimated Glomerular Filt Rate 60; Glucose 104 mg/dL (65-110); Sodium 140 mmol/L (137-145)
[2021-09-05 06:17] LABS: NT Pro B Type Natriuretic Pept 3620 pg/mL (5-100)
[2021-09-05] MEDS: FERROUS SULFATE 324 MG TABLET PO (07:50)
[2021-09-05] MEDS: ASPIRIN 81 MG ENTERIC TABLET PO (07:51)
[2021-09-05] MEDS: DOCUSATE SODIUM 100 MG CAPSULE PO (07:51)
[2021-09-05] MEDS: CALCIUM CARBONATE (OSCAL) 500 MG TABLET PO (07:51)
[2021-09-05] MEDS: ATORVASTATIN 40 MG TABLET PO (07:51)
[2021-09-05] MEDS: APIXABAN 5 MG TABLET PO ×2 (07:51→21:41)
[2021-09-05] MEDS: FLUTICASONE PROPIONATE 0.05% NA SPR 16 GM BTL (*BKC) 2 SPRAY NASAL ×2 (07:51→21:41)
[2021-09-05] MEDS: guaiFENesin 12 HR 600 MG TABCR PO ×2 (07:51→21:41)
[2021-09-05] MEDS: CHOLECALCIFEROL 1,000 UNITS TABLET 2000 UNITS PO (07:51)
[2021-09-05] MEDS: predniSONE 20 MG TABLET PO (07:51)
[2021-09-05] MEDS: BENZONATATE 100 MG CAPSULE PO (07:58)
[2021-09-05] MEDS: BISACODYL 5 MG TABLET EC PO (08:06)
--- NOTE | 2021-09-05 09:39 | PC.NURSE ---
Steffany Padilla Telephone Answering Service Operator on floor and notified of pt's orthostatic bp positive this am and pt c/o dizziness when standing.
--- NOTE | 2021-09-05 11:37 | PM.PNCARD ---
Progress Note: A&P Assessment and Plan (1) Aortic stenosis: Qualifiers: Cardiac valve disease etiology: etiology unspecified Qualified Code(s): I35.0 - Nonrheumatic aortic (valve) stenosis Code(s): I35.0 - Nonrheumatic aortic (valve) stenosis Status: Acute Assessment and Plan: History of aortic stenosis followed in our office by Dr. Teixeira. valve area calculated at severe but gradients which support more moderate disease. No further inpatient workup is needed regarding her aortic stenosis. (2) Atrial fibrillation: Qualifiers: Atrial fibrillation type: unspecified Qualified Code(s): I48.91 - Unspecified atrial fibrillation Code(s): I48.91 - Unspecified atrial fibrillation Status: Acute Assessment and Plan: This is a new diagnosis this admission. Her rate is controlled in the absence of any AV radha agents and she is asymptomatic with this arrhythmia at this time. She has been started on systemic anticoagulation with apixaban. Monitor for bleeding. (3) Syncope: Code(s): R55 - Syncope and collapse Status: Acute Assessment and Plan: Etiology of this remains unknown. Perhaps hypotension, intravascular volume depletion? Probably not related to her arrhythmia but this certainly cannot be excluded. She has not experienced any further syncope during this admission. (4) Acute and chronic respiratory failure with hypoxia: Code(s): J96.21 - Acute and chronic respiratory failure with hypoxia Status: Acute Assessment and Plan: Pneumonia superimposed on chronic lung disease. Management per primary service. (5) Hypotension: Code(s): I95.9 - Hypotension, unspecified Status: Acute Assessment and Plan: blood pressure was 70 systolic today. Avoid BP meds. She did not feel dizzy and she states that she feels back to baseline. I do think that further cardiac workup regarding her aortic stenosis will be needed Including possible JANNETH plus/minus left/right heart catheterization, but this can be performed as an outpatient. Subjective Date/time seen: 09/05/21 11:37 Interval history: Cardiology follow up for aortic stenosis, atrial fibrillation Date of service 09/04/2021: Feeling okay today, has complaint of fatigue. Denies any chest pain, palpitations, worsening shortness of breath, syncope, presyncope. Remains rate controlled in atrial fibrillation. Review of Systems Constitutional: Constitutional: Reports fatigue Eyes: Eyes: Reports no additional eye complaints ENT: Reports system reviewed and no additional complaints, except as documented Cardiovascular: Cardiovascular: Reports no additional cardiovascular complaints and Reports dyspnea on exertion Respiratory: Respiratory: Reports dyspnea on exertion Gastrointestinal: Gastrointestinal: Reports no additional gastrointestinal complaints Musculoskeletal: Musculoskeletal: Reports no additional musculoskeletal complaints Neurologic: Reports as per HPI Endocrine: Endocrine: Reports no additional endocrine complaints and Reports fatigue Hematologic/Lymphatic: Hematologic/Lymphatic: Reports no additional hematologic/lymphatic complaints Allergic/Immunologic: Allergic/Immunologic: Reports no additional allergic/immunologic complaints Exam Const: General: comfortable and no acute distress Other: Pleasant elderly lady napping in the chair. Awakens to voice. HENMT: Mouth: Yes moist mucous membranes Eyes: Sclera: sclerae normal Pupils: Equal, round and reactive pupils present Neck: Neck: supple and no JVD Resp: Effort & Inspection: normal respiratory effort Auscultation: rales and diminished lung sounds Other: Breath sounds are diminished in both lung gordon, Velcro sounding rales central Cardio: Rate: regular rate Rhythm: abnormal rhythm irregularly irregular Heart sounds: Murmur heart sound present systolic II/ and at the base Other: Patie
--- NOTE | 2021-09-05 12:08 | PM.IMPN ---
Progress Note: A&P Assessment and Plan (1) Syncope: Code(s): R55 - Syncope and collapse Status: Acute Assessment and Plan: Hx. chronic aortic valve stenosis followed by Dr. Teixeira Hx. significant interstitial lung disease followed by Dr. Montes Fell at [facility], had a brief syncopal episode, admitted, found to have new onset A.Fib Continue Eliquis Echo showed worsening Aortic Stenosis and need for TAVR Continue telemetry Clear carotid Doppler ultrasounds Fall precautions. +orthostatics Monitor (2) Hypotension: Code(s): I95.9 - Hypotension, unspecified Status: Acute Assessment and Plan: Suspect intermittently hypotensive due to hypoxia or more likely related to new onset A.fib Sepsis is also a consideration given findings of pneumonia on imaging Was rehydrated Holding antihypertensives initially BPs 90s/60s (3) Acute and chronic respiratory failure with hypoxia: Code(s): J96.21 - Acute and chronic respiratory failure with hypoxia Status: Acute Assessment and Plan: Secondary to pulmonary infiltrates, presumably pneumonia Highly likely related to severity of Aortic Stenosis now BNP is elevated likely related to Heart /valve function elevated D-dimer 1.35 , started on Eliquis CTA chest : no pulmonary embolus. Diffuse lung disease, consistent with pneumonia versus pulmonary edema superimposed on chronic interstitial lung disease.Small pleural effusions. Worsened chronic mediastinal lymphadenopathy, likely reactive. WBC up to 15.2-->21.7-->19.7, may have been steroid related. No fevers (4) Bilateral pneumonia: Code(s): J18.9 - Pneumonia, unspecified organism Status: Acute Assessment and Plan: Fishing Gear Mechanic Dr. Montes suggested broad-spectrum antibiotics (cefepime, azithromycin, and vancomycin) given concerns for sepsis; s/p 1 dose of Solu-Medrol as well low dose prednisone dosing continues per Dr. Hogan now off overnight CPAP, weaned from 10 L-->6 L-->5 L today CXR repeated with no significant change Follow sputum culture. Continue IS, duo Nebs, Flonase, Mucinex Conitine IV Cef/Azithro/Vanc Pulmonology following, recommendations appreciated (5) Person under investigation for COVID-19: Code(s): Z20.822 - Contact with and (suspected) exposure to COVID-19 Status: Acute Assessment and Plan: R/O Patient is received her COVID vaccinations and booster though given community prevalence covid negativ. (6) Congestive heart failure: Qualifiers: Heart failure type: unspecified Heart failure chronicity: unspecified Qualified Code(s): I50.9 - Heart failure, unspecified Code(s): I50.9 - Heart failure, unspecified Status: Acute Assessment and Plan: Monitor volume status closely hydrate or diurese as needed. Echo repeated, worse Aortic stenosis. BNP 3160 on 09/02, then on 09/03; s/p 20mg IV lasix; 3620 today Cardiology following (7) Interstitial lung disease: Code(s): J84.9 - Interstitial pulmonary disease, unspecified Status: Acute Assessment and Plan: Plan is as detailed above Fishing Gear Mechanic has been consulted and her input is appreciated. has improved from 10L to 5 L O2 NC, she was on 3-4 L O2 at home. Fishing Gear Mechanic has continued her IV Cefepime/Azithro/Vanc for CAP prednisone with history of interstitial disease. biopsy history. BNP 3160 on 09/02, then on 09/03; s/p 20mg IV lasix. 3620 today No wheezing today, repeating BNP in morning. Continue following pulmonary recommendations. (8) Atrial fibrillation: Qualifiers: Atrial fibrillation type: unspecified Qualified Code(s): I48.91 - Unspecified atrial fibrillation Code(s): I48.91 - Unspecified atrial fibrillation Status: Acute Assessment and Plan: New onset may be related to lung disease/respiratory distress TSH 1.12 Echo confirmed worsening aortic valve stenosis. Needs to discuss TAVR with
--- NOTE | 2021-09-05 14:11 | PCOTNOTE ---
On 09/05/21, the student, Juliette Pena, provided care and completed [facility] documentation on this patient. I have reviewed the student's documentation and agree with the findings.
--- NOTE | 2021-09-05 14:41 | PM.PNPUL ---
Progress Note: A&P Assessment and Plan (1) Interstitial lung disease: Code(s): J84.9 - Interstitial pulmonary disease, unspecified Status: Acute Assessment and Plan: Patient with a history of interstitial lung disease, positive VICENTE and likely NSIP. Patient now with worsening shortness of breath, hypoxemia and worsening ground-glass and interstitial infiltrates on her chest x-ray. Patient is currently being treated for pneumonia with cefepime and azithromycin. She is afebrile with a white blood cell count of 19.7. Patient has no wheezes and being treated with albuterol 2.5 nebs q.6 and ipratropium 0.5 mg nebs q.6. She is clinically improved on prednisone 20 mg p.o. q.day and I will continue this dose today. The patient has a blood gas on 04/02 with a pH of 7.35/37/52 on 6 L nasal cannula. There is no evidence of hypercarbic respiratory failure. Patient serum bicarb is 26. Of note the patient has An echocardiogram on 09/04 demonstrating worsening aortic stenosis, LVEF 55-60, severe left atrial enlargement, mild MR, moderate TR with a PA SP of 48 and normal RV size and function. Patient also has new atrial fibrillation this admission and is being anticoagulated with apixaban. Cardiology is following and no additional inpatient workup at this time. Possible JANNETH plus-minus left right heart catheterization consideration in the future. given patient's low blood pressure she is unable to be aggressively diuresed. (2) Obstructive sleep apnea on CPAP: Code(s): G47.33 - Obstructive sleep apnea (adult) (pediatric); Z99.89 - Dependence on other enabling machines and devices Status: Acute Assessment and Plan: Her prior pulmonary office visit note patient is on auto PAP 5-15. Will continue BiPAP or AutoPAP (depending on availability) with hospital machine tonight. Subjective Date/time seen: 09/05/21 14:41 Interval history: Admitted 09/03 Chief complaint: Syncope,Pneumonia,Hypotension Narrative: This 80-year-old female presented with a 1 day history of shortness of breath and low blood pressure. 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 Patient stated that she was in her usual state of health until the day of admission when she found to have low blood pressure. reportedly the patient had syncopal episodes and intermittent episodes of lightheadedness over the past 2-3 weeks prior to coming to the hospital. On the day of admission she found the blood pressure was low in the range of 80 systolic. she also had some shortness of breath but no chest pain, palpitations hemoptysis cough wheezing or fever chills. when evaluated in the emergency room she was found to have a systolic blood pressure around 80 which improved with IV fluids. She had a brain CT that showed no acute findings, a chest x-ray showed extensive patchy bilateral infiltrates superimposed on chronic fibrotic changes. She was recently exposed to COVID as her grandson tested positive. patient is fully vaccinated including boost. Patient recently started on oral steroids for interstitial lung disease, most likely NSIP. She had positive VCIENTE antibodies. The chest CT showed bilateral pulmonary infiltrates and small pleural effusions. The infiltrates have significantly increased since previous chest CT in May of 2021. she also received treatment with BiPAP support. Currently she is on just supplemental oxygen. She has no significant shortness of breath or other respiratory symptoms at this point. 09/04/21 Respiratory status is unchanged over the last 24 hours. supplemental oxygen flow decreased from 10 liters/minute down to 6 liters/minute. Patient slept well last night; she has no new respiratory treatments complaints. She was not placed on BiP
[2021-09-05] MEDS: SENNA/DOCUSATE SODIUM TABLET 1 TAB PO (21:40)
[2021-09-06] VITALS (28 sets, daily range): BP systolic 89–123; BP diastolic 53–77; PULSE 81–108; RESP 16–24; TEMP 35.9–36.6; O2SAT 92–98
[2021-09-06] MEDS: ALBUTEROL SULFATE NEB 2.5 MG/0.5 ML INH INHALATION ×4 (02:09→20:47)
[2021-09-06] MEDS: IPRATROPIUM BR 0.02% INH SOLN 0.5 MG/2.5 ML VIAL INHALATION ×4 (02:09→20:48)
[2021-09-06 06:03] LABS: Hematocrit 39.3 % (37.0-47.0); Hemoglobin 12.5 g/dL (12.0-15.0); Mean Corpuscular HGB Conc 31.8 g/dl (32-36); Mean Corpuscular Volume 94.5 fl (80-100); Mean Platelet Volume 9.9 fl (7.4-10.4); Platelet Count Result 351 k/mm3 (150-375); Red Blood Count 4.16 M/mm3 (4.2-5.4); Red Cell Distribution Width 14.1 % (11.5-14.5); White Blood Count 15.4 K/mm3 (4.5-10.0)
[2021-09-06 06:25] LABS: Anion Gap 5 mmol/L (8-16); Blood Urea Nitrogen 19 mg/dL (7-17); Calcium 8.8 mg/dL (8.4-10.2); Carbon Dioxide 31 mmol/L (22-30); Chloride 105 mmol/L (98-107); Estimated CRCL calculation 50 ml/min; Estimated Glomerular Filt Rate > 60; Glucose 81 mg/dL (65-110); Potassium 3.8 mmol/L (3.4-5.0); Sodium 141 mmol/L (137-145)
[2021-09-06 06:31] LABS: NT Pro B Type Natriuretic Pept 3820 pg/mL (5-100)
[2021-09-06] MEDS: APIXABAN 5 MG TABLET PO ×2 (08:41→22:33)
[2021-09-06] MEDS: DOCUSATE SODIUM 100 MG CAPSULE PO (08:41)
[2021-09-06] MEDS: CHOLECALCIFEROL 1,000 UNITS TABLET 2000 UNITS PO (08:41)
[2021-09-06] MEDS: guaiFENesin 12 HR 600 MG TABCR PO ×2 (08:41→22:33)
[2021-09-06] MEDS: FERROUS SULFATE 324 MG TABLET PO (08:42)
[2021-09-06] MEDS: ATORVASTATIN 40 MG TABLET PO (08:42)
[2021-09-06] MEDS: predniSONE 20 MG TABLET PO (08:42)
[2021-09-06] MEDS: FLUTICASONE PROPIONATE 0.05% NA SPR 16 GM BTL (*BKC) 2 SPRAY NASAL ×2 (08:42→22:33)
[2021-09-06] MEDS: CALCIUM CARBONATE (OSCAL) 500 MG TABLET PO (08:42)
[2021-09-06] MEDS: ASPIRIN 81 MG ENTERIC TABLET PO (08:42)
--- NOTE | 2021-09-06 10:31 | PM.PNCARD ---
Progress Note: A&P Assessment and Plan (1) Aortic stenosis: Qualifiers: Cardiac valve disease etiology: etiology unspecified Qualified Code(s): I35.0 - Nonrheumatic aortic (valve) stenosis Code(s): I35.0 - Nonrheumatic aortic (valve) stenosis Status: Acute Assessment and Plan: History of aortic stenosis followed in our office by Dr. Teixeira. valve area calculated at severe but gradients which support more moderate disease. No further inpatient workup is needed regarding her aortic stenosis. This morning she has increased oxygen requirements from 6 L to 12 L, elevated brain atretic peptide. Chest x-ray suggestive of possible pulmonary edema as well. I will order 20 mg IV Lasix x1 this morning. Monitor renal function. (2) Atrial fibrillation: Qualifiers: Atrial fibrillation type: unspecified Qualified Code(s): I48.91 - Unspecified atrial fibrillation Code(s): I48.91 - Unspecified atrial fibrillation Status: Acute Assessment and Plan: continue apixaban 5 mg b.i.d. start metoprolol 12.5 mg b.i.d. with holding parameters (3) Syncope: Code(s): R55 - Syncope and collapse Status: Acute Assessment and Plan: apparently was orthostatic on admission with systolic blood pressure dropping from 90 lying down to 70 on standing up. This morning she is not orthostatic. (4) Acute and chronic respiratory failure with hypoxia: Code(s): J96.21 - Acute and chronic respiratory failure with hypoxia Status: Acute Assessment and Plan: Pneumonia superimposed on chronic lung disease. Management per primary service. (5) Hypotension: Code(s): I95.9 - Hypotension, unspecified Status: Acute Assessment and Plan: Not orthostatic this morning. Subjective Date/time seen: 09/06/21 10:31 Interval history: Admitted 09/03 Chief complaint: Syncope,Pneumonia,Hypotension Narrative: This 80-year-old female presented with a 1 day history of shortness of breath and low blood pressure. 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 Patient stated that she was in her usual state of health until the day of admission when she found to have low blood pressure. reportedly the patient had syncopal episodes and intermittent episodes of lightheadedness over the past 2-3 weeks prior to coming to the hospital. On the day of admission she found the blood pressure was low in the range of 80 systolic. she also had some shortness of breath but no chest pain, palpitations hemoptysis cough wheezing or fever chills. when evaluated in the emergency room she was found to have a systolic blood pressure around 80 which improved with IV fluids. She had a brain CT that showed no acute findings, a chest x-ray showed extensive patchy bilateral infiltrates superimposed on chronic fibrotic changes. She was recently exposed to COVID as her grandson tested positive. patient is fully vaccinated including boost. Patient recently started on oral steroids for interstitial lung disease, most likely NSIP. She had positive VICENTE antibodies. The chest CT showed bilateral pulmonary infiltrates and small pleural effusions. The infiltrates have significantly increased since previous chest CT in May of 2021. she also received treatment with BiPAP support. Currently she is on just supplemental oxygen. She has no significant shortness of breath or other respiratory symptoms at this point. 09/04/21 Respiratory status is unchanged over the last 24 hours. supplemental oxygen flow decreased from 10 liters/minute down to 6 liters/minute. Patient slept well last night; she has no new respiratory treatments complaints. She was not placed on BiPAP support last night. Chest x-ray done this a.m.
[2021-09-06 10:50] LABS: Influenza Control Positive
[2021-09-06] MEDS: FUROSEMIDE INJ 40 MG/4 ML VIAL 20 MG IV PUSH (11:37)
--- NOTE | 2021-09-06 12:23 | PM.PNPUL ---
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 Patient now with worsening shortness of breath, hypoxemia and worsening ground-glass and interstitial infiltrates on her chest x-ra and CT scan. Patient is currently being treated for pneumonia with cefepime and azithromycin. She is afebrile with a white blood cell count of 19.7. Patient has no wheezes and being treated with albuterol 2.5 nebs q.6 and ipratropium 0.5 mg nebs q.6. She is clinically improved on prednisone 20 mg p.o. q.day and I will continue this dose today. The patient has a blood gas on 04/02 with a pH of 7.35/37/52 on 6 L nasal cannula. There is no evidence of hypercarbic respiratory failure. Patient serum bicarb is 26. Of note the patient has An echocardiogram on 09/04 demonstrating worsening aortic stenosis, LVEF 55-60, severe left atrial enlargement, mild MR, moderate TR with a PA SP of 48 and normal RV size and function. Patient also has new atrial fibrillation this admission and is being anticoagulated with apixaban. Cardiology is following and no additional inpatient workup at this time. Possible JANNETH plus-minus left right heart catheterization consideration in the future. given patient's low blood pressure she is unable to be aggressively diuresed. 09/06 Clinically patient states that her breathing is the same and has the same cough and phlegm production. She denies any hemoptysis. She has had worsening oxygenation overnight and now requires 12 L with saturations 93%. Chest x-ray was obtained in states shows stable diffuse interstitial infiltrates bilaterally. Her influenza swab is negative. Her BNP is 3820. She has been given Lasix 20 IV. she is afebrile with a decreasing white count of 15.4 on cefepime and azithromycin. She has no wheezing on exam. this time I will continue prednisone 20 mg a day and follow her clinically. (2) Obstructive sleep apnea on CPAP: Code(s): G47.33 - Obstructive sleep apnea (adult) (pediatric); Z99.89 - Dependence on other enabling machines and devices Status: Acute Assessment and Plan: 09/05 Her prior pulmonary office visit note patient is on auto PAP 5-15. 09/06 Patient's family has brought in her home CPAP machine and we will have respiratory therapy check this and she will wear this machine tonight. Subjective Date/time seen: 09/06/21 12:23 Interval history: Admitted 09/03 Chief complaint: Syncope,Pneumonia,Hypotension Narrative: This 80-year-old female presented with a 1 day history of shortness of breath and low blood pressure. 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 Patient stated that she was in her usual state of health until the day of admission when she found to have low blood pressure. reportedly the patient had syncopal episodes and intermittent episodes of lightheadedness over the past 2-3 weeks prior to coming to the hospital. On the day of admission she found the blood pressure was low in the range of 80 systolic. she also had some shortness of breath but no chest pain, palpitations hemoptysis cough wheezing or fever chills. when evaluated in the emergency room she was found to have a systolic blood pressure around 80 which improved with IV fluids. She had a brain CT that showed no acute findings, a chest x-ray showed extensive patchy bilateral infiltrates superimposed on chronic fibrotic changes. She was recently exposed to COVID as her grandson tested positive. patient is fully vaccinated including boost. Patient recently started on oral steroids for interstitial liane
--- NOTE | 2021-09-06 13:06 | PM.IMPN ---
Progress Note: A&P Assessment and Plan (1) Aortic stenosis: Qualifiers: Cardiac valve disease etiology: etiology unspecified Qualified Code(s): I35.0 - Nonrheumatic aortic (valve) stenosis Code(s): I35.0 - Nonrheumatic aortic (valve) stenosis Status: Acute Assessment and Plan: Primary machine design checker Dr. Teixeira Moderate disease no more inpatient workup indicated apparently Cardiology consult ordered Lasix and we will see if that helps with hypoxia (2) Obstructive sleep apnea on CPAP: Code(s): G47.33 - Obstructive sleep apnea (adult) (pediatric); Z99.89 - Dependence on other enabling machines and devices Status: Acute (3) Atrial fibrillation: Qualifiers: Atrial fibrillation type: unspecified Qualified Code(s): I48.91 - Unspecified atrial fibrillation Code(s): I48.91 - Unspecified atrial fibrillation Status: Acute Assessment and Plan: Rate control: started Metoprolol 12.5 mg b.i.d. Anticoagulation: Eliquis 5 mg b.i.d. -will watch for hypotension on beta-nia (4) Hypotension: Code(s): I95.9 - Hypotension, unspecified Status: Acute Assessment and Plan: Trending blood pressures, no longer orthostatic (5) Bilateral pneumonia: Code(s): J18.9 - Pneumonia, unspecified organism Status: Acute Assessment and Plan: Leukocytosis improving 21k to 15k with cefepime azithromycin (6) Acute and chronic respiratory failure with hypoxia: Code(s): J96.21 - Acute and chronic respiratory failure with hypoxia Status: Acute Assessment and Plan: Continue diuretics and steroids and antibiotics (7) Interstitial lung disease: Code(s): J84.9 - Interstitial pulmonary disease, unspecified Status: Acute Assessment and Plan: -possibly has NSIP -with ground-glass opacities may be ILD exacerbation, account executive agribusiness giving 20 mg prednisone and watching closely -oxygen requirement up from 6 L to 12 L Additional Plan Diet: Heart healthy DVT prophylaxis: On Eliquis Code status: DNR Disposition: Pending clinical course weaning oxygen likely greater than 3 days Time Spent With Patient Time with patient: 25 - 35 minutes Subjective Date/time seen: 09/06/21 13:06 Patient seen and examined. Reviewed notes from Cardiology and pulmonology. Continue antibiotics cefepime azithromycin with decreasing steatosis. Pulmonology following with prednisone 20 mg daily for her history of ILD which may be related to her current as aspiration. Oxygen requirements have gone up from 6 to 12 L. cardiology is diuresing patient with 20 mg of Lasix for possible pulmonary edema causing worsening respiratory status. Is no longer orthostatic, patient had infusion was admitted for orthostatic hypotension and syncope. Patient states she started seeing some kind of floaters haziness in her vision. Unclear when she had her last eye exam. Patient is still in atrial fibrillation low 100s. The patient has been started on metoprolol 12.5 mg b.i.d. she denies fever, chills, nausea, vomiting, diarrhea. Review of Systems Review of Systems: All systems reviewed & are unremarkable except as noted in HPI and below Exam Narrative: - GENERAL: Pleasant elderly woman lying comfortably in bed in no acute distress - EYES: EOMI. Anicteric. - HENT: Moist mucous membranes. No scleral icterus. - LUNGS: Diminished lung sounds, significant crackles in left lung - CARDIOVASCULAR: Irregularly irregular - ABDOMEN: Soft, non-tender and non-distended. No palpable masses. - EXTREMITIES: No edema. Peripheral pulses 2+. Non-tender. - NEUROLOGIC: No focal neurological deficits. CN II-XII grossly intact. - PSYCHIATRIC: Awake, Alert and oriented. Appropriate mood and affect. - SKIN: No rashes or lesions. Warm. - LYMPH: No cervical lymphadenopathy. Objective Data Vital Signs Vital Signs: Vital Signs - 24 hr 09/05/21 13:46 09/05/21 14:25 09/05/21 14:33 Temper
[2021-09-06] MEDS: BISACODYL 5 MG TABLET EC PO (13:25)
--- NOTE | 2021-09-06 14:46 | PCOTNOTE ---
On 09/06/21, the student, Juliette Pena, provided care and completed [facility] documentation on this patient. I have reviewed the student's documentation and agree with the findings.
[2021-09-06] MEDS: BENZONATATE 100 MG CAPSULE PO (15:49)
[2021-09-06] MEDS: SENNA/DOCUSATE SODIUM TABLET 1 TAB PO (22:33)
[2021-09-07] VITALS (30 sets, daily range): BP systolic 66–114; BP diastolic 44–77; PULSE 56–101; RESP 18–24; TEMP 36.2–36.8; O2SAT 82–100
[2021-09-07] MEDS: IPRATROPIUM BR 0.02% INH SOLN 0.5 MG/2.5 ML VIAL INHALATION ×4 (01:08→20:50)
[2021-09-07] MEDS: ALBUTEROL SULFATE NEB 2.5 MG/0.5 ML INH INHALATION ×4 (01:09→20:50)
[2021-09-07 05:19] LABS: Hematocrit 37.9 % (37.0-47.0); Hemoglobin 12.2 g/dL (12.0-15.0); Mean Corpuscular HGB Conc 32.2 g/dl (32-36); Mean Corpuscular Hemoglobin 29.9 pg (26-34); Mean Corpuscular Volume 92.9 fl (80-100); Mean Platelet Volume 9.9 fl (7.4-10.4); Platelet Count Result 337 k/mm3 (150-375); Red Blood Count 4.08 M/mm3 (4.2-5.4); Red Cell Distribution Width 13.7 % (11.5-14.5)
[2021-09-07 05:28] LABS: Anion Gap 3 mmol/L (8-16); Blood Urea Nitrogen 15 mg/dL (7-17); Calcium 8.8 mg/dL (8.4-10.2); Carbon Dioxide 37 mmol/L (22-30); Chloride 100 mmol/L (98-107); Estimated CRCL calculation 57 ml/min; Estimated Glomerular Filt Rate > 60; Glucose 83 mg/dL (65-110); Potassium 3.5 mmol/L (3.4-5.0); Sodium 140 mmol/L (137-145)
[2021-09-07 05:33] LABS: NT Pro B Type Natriuretic Pept 3820 pg/mL (5-100)
--- NOTE | 2021-09-07 08:45 | PM.PNCARD ---
Progress Note: A&P Additional Plan 80-year-old lady with chronic moderate aortic stenosis who now has developed atrial fibrillation. Certainly shortness of breath could have been worsened by this. The principal issue now I believe is chronic interstitial lung disease as by clinical exam she does not seem to be at all volume overloaded affect slightly on the dry side at least by exam. I suspect her oxygen requirements will increase compared to when she was on previously at home. Metoprolol has been started for rate control. Systemic anticoagulation has been started. No additional cardiac recommendations at this time Artis Rangel MD [facility] Subjective Date/time seen: date of service:09/07/21 08:45 Interval history: She follow-up visit in this 80-year-old lady with: Evidence of moderate aortic valve stenosis and development of atrial fibrillation onset of the arrhythmia unclear. She follows in our office because of her chronic aortic valve disease. Patient presented with some increasing dyspnea several days ago. She also has chronic significant interstitial lung disease. This morning she is comfortable in appearance seated in bed head of the bed is elevated about 45? watching television. No distress. Exam Const: General: comfortable and no acute distress Other: Pleasant elderly lady no distress of any kind. Wearing nasal cannula oxygen. HENMT: Mouth: Yes dry mucous membranes Eyes: Sclera: sclerae normal Neck: Neck: supple and no JVD Resp: Effort & Inspection: normal respiratory effort Other: Diffuse dry sounding velcro rales Cardio: Rhythm: abnormal rhythm irregularly irregular Other: soft crescendo decrescendo murmur of aortic valve stenosis at the base GI: GI Palp: Yes Soft to palpation Auscultation: normal bowel sounds Skin: General skin exam: normal color Neuro: Cognition (Neuro): normal cognition Extrem: Other: no peripheral edema Objective Data Vital Signs Vital Signs: Vital Signs - 24 hr 09/06/21 08:52 09/06/21 10:28 09/06/21 10:30 Temperature 36.6 C Pulse Rate 103 H 104 H Respiratory Rate 24 H Blood Pressure 102/64 106/74 Pulse Oximetry 93 92 09/06/21 10:33 09/06/21 12:00 09/06/21 14:06 Temperature 36.4 C Pulse Rate 108 H 106 H 107 H Respiratory Rate 20 Blood Pressure 104/59 L 108/56 L Pulse Oximetry 93 09/06/21 14:15 09/06/21 14:18 09/06/21 15:03 Temperature Pulse Rate 96 Respiratory Rate 22 H Blood Pressure Pulse Oximetry 95 96 09/06/21 16:00 09/06/21 17:29 09/06/21 17:35 Temperature 36.6 C Pulse Rate 81 93 Respiratory Rate 20 Blood Pressure 110/64 Pulse Oximetry 95 96 09/06/21 18:19 09/06/21 20:00 09/06/21 20:35 Temperature 36.6 C Pulse Rate 87 86 Respiratory Rate 16 Blood Pressure 89/53 L Pulse Oximetry 97 98 09/06/21 20:36 09/06/21 20:39 09/06/21 20:47 Temperature Pulse Rate Respiratory Rate Blood Pressure 110/70 110/60 Pulse Oximetry 98 09/06/21 20:49 09/06/21 21:00 09/06/21 22:00 Temperature Pulse Rate 86 91 Respiratory Rate 20 20 Blood Pressure Pulse Oximetry 93 09/07/21 00:00 09/07/21 01:10 09/07/21 04:00 Temperature Pulse Rate 84 101 H 85 Respiratory Rate 20 Blood Pressure Pulse Oximetry 09/07/21 06:00 Temperature 36.7 C Pulse Rate 92 Respiratory Rate 20 Blood Pressure 94/60 L Pulse Oximetry 95 Intake/Output Intake/Output: Intake & Output 09/04/21 09/05/21 09/06/21 09/07/21 23:59 23:59 23:59 23:59 Intake Total 1512 1670 1700 250 Output Total 450 2700 5600 1250 Balance 9872 -4660 -3900 -1000 Meds/Results Medications: Active Medications Generic Name Dose Route Start Last Admin Trade Name Garettq PRN Reason Stop Dose Admin Albuterol 2.5 mg 09/03/21 02:00 09/07/21 01:09 Albuterol Sulfate Neb 2.5 Mg/0.5 Ml Inh INHALATION 2.5 mg Q6HRT ROSANGELA Administration Apixaban 5 mg 09/03/21 21:00 09/06/21 22:33 A
[2021-09-07] MEDS: METOPROLOL TARTRATE 12.5 MG TABLET PO ×2 (08:47→20:58)
[2021-09-07] MEDS: guaiFENesin 12 HR 600 MG TABCR PO ×2 (08:48→20:58)
[2021-09-07] MEDS: DOCUSATE SODIUM 100 MG CAPSULE PO (08:48)
[2021-09-07] MEDS: CALCIUM CARBONATE (OSCAL) 500 MG TABLET PO (08:48)
[2021-09-07] MEDS: APIXABAN 5 MG TABLET PO ×2 (08:48→20:59)
[2021-09-07] MEDS: FERROUS SULFATE 324 MG TABLET PO (08:48)
[2021-09-07] MEDS: ATORVASTATIN 40 MG TABLET PO (08:48)
[2021-09-07] MEDS: predniSONE 20 MG TABLET PO (08:48)
[2021-09-07] MEDS: CHOLECALCIFEROL 1,000 UNITS TABLET 2000 UNITS PO (08:48)
[2021-09-07] MEDS: ASPIRIN 81 MG ENTERIC TABLET PO (08:52)
[2021-09-07] MEDS: FLUTICASONE PROPIONATE 0.05% NA SPR 16 GM BTL (*BKC) 2 SPRAY NASAL ×2 (08:52→20:58)
--- NOTE | 2021-09-07 10:16 | PM.PNPUL ---
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 Patient now with worsening shortness of breath, hypoxemia and worsening ground-glass and interstitial infiltrates on her chest x-ra and CT scan. Patient is currently being treated for pneumonia with cefepime and azithromycin. She is afebrile with a white blood cell count of 19.7. Patient has no wheezes and being treated with albuterol 2.5 nebs q.6 and ipratropium 0.5 mg nebs q.6. She is clinically improved on prednisone 20 mg p.o. q.day and I will continue this dose today. The patient has a blood gas on 04/02 with a pH of 7.35/37/52 on 6 L nasal cannula. There is no evidence of hypercarbic respiratory failure. Patient serum bicarb is 26. Of note the patient has An echocardiogram on 09/04 demonstrating worsening aortic stenosis, LVEF 55-60, severe left atrial enlargement, mild MR, moderate TR with a PA SP of 48 and normal RV size and function. Patient also has new atrial fibrillation this admission and is being anticoagulated with apixaban. Cardiology is following and no additional inpatient workup at this time. Possible JANNETH plus-minus left right heart catheterization consideration in the future. given patient's low blood pressure she is unable to be aggressively diuresed. 09/06 Clinically patient states that her breathing is the same and has the same cough and phlegm production. She denies any hemoptysis. She has had worsening oxygenation overnight and now requires 12 L with saturations 93%. Chest x-ray was obtained in states shows stable diffuse interstitial infiltrates bilaterally. Her influenza swab is negative. Her BNP is 3820. She has been given Lasix 20 IV. she is afebrile with a decreasing white count of 15.4 on cefepime and azithromycin. She has no wheezing on exam. this time I will continue prednisone 20 mg a day and follow her clinically. 09/07 Patient continues to slowly improve clinically. patient diuresed yesterday with 20 of Lasix -3.9 L and now she is on 6 L nasal cannula with saturations 92%. Her white blood cell count is 15.0. at this time I would continue cefepime, azithromycin and prednisone 20. Clinically she improved with diuretics and I would continue aggressive diuresis as tolerated by her cardiac and renal systems. Discussed with Dr. Chandler inpatient Pulmonary Services will resume on 09/10/2021. Call with questions (2) Obstructive sleep apnea on CPAP: Code(s): G47.33 - Obstructive sleep apnea (adult) (pediatric); Z99.89 - Dependence on other enabling machines and devices Status: Acute Assessment and Plan: 09/05 Her prior pulmonary office visit note patient is on auto PAP 5-15. 09/06 Patient's family has brought in her home CPAP machine and we will have respiratory therapy check this and she will wear this machine tonight. 09/07 She wore no CPAP last night. she did bring her home machine in and I have talked to respiratory therapist to see if her home machine is usable and if so she should user home machine tonight. If her home machine is not usable she should be put on auto PAP 5-15 with bleed in to maintain sats greater than 90. Subjective Date/time seen: 09/07/21 10:16 Interval history: Admitted 09/03 Chief complaint: Syncope,Pneumonia,Hypotension Narrative: This 80-year-old female With a history of interstitial lung disease, obstructive sleep apnea on CPAP who presented with a 1 day history of shortness of breath and low blood pressure. 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 Patient stated th
--- NOTE | 2021-09-07 16:45 | PM.IMPN ---
Progress Note: A&P Assessment and Plan (1) Aortic stenosis: Qualifiers: Cardiac valve disease etiology: etiology unspecified Qualified Code(s): I35.0 - Nonrheumatic aortic (valve) stenosis Code(s): I35.0 - Nonrheumatic aortic (valve) stenosis Status: Acute (2) Obstructive sleep apnea on CPAP: Code(s): G47.33 - Obstructive sleep apnea (adult) (pediatric); Z99.89 - Dependence on other enabling machines and devices Status: Acute (3) Atrial fibrillation: Qualifiers: Atrial fibrillation type: unspecified Qualified Code(s): I48.91 - Unspecified atrial fibrillation Code(s): I48.91 - Unspecified atrial fibrillation Status: Acute (4) Hypotension: Code(s): I95.9 - Hypotension, unspecified Status: Acute (5) Bilateral pneumonia: Code(s): J18.9 - Pneumonia, unspecified organism Status: Acute (6) Acute and chronic respiratory failure with hypoxia: Code(s): J96.21 - Acute and chronic respiratory failure with hypoxia Status: Acute (7) Syncope: Code(s): R55 - Syncope and collapse Status: Acute Additional Plan # acute on chronic hypoxic respiratory failure # interstitial lung disease - a has an S IP, continue prednisone 20 mg as per barista - patient 6 L oxygen at rest, up to 10 L with activity - patient was given Lasix yesterday with net negative 3 L output # hypotension # syncope - patient was started on metoprolol recently, now with Lasix causing 3 L net fluid output that is likely etiology of hypotension - will hold off on IV fluids, improved on its own by the afternoon - I believe hypotension is from being volume depleted after the diuretic - syncope was etiology of admission as well which may be related to the stenosis versus volume status verses atrial fibrillation # community-acquired pneumonia, bilateral pneumonia -persistent leukocytosis 15,000 - continue antibiotics: Cefepime and azithromycin # aortic stenosis - primary grain cleaner and transfer operator Dr. Teixeira for possible TAVR - no more inpatient workup required for aortic stenosis -moderate disease # obstructive sleep apnea -Patient to use home CPAP, barista assisting # atrial fibrillation -rate control metoprolol 12.5 mg b.i.d., blood pressure is quite soft, hold parameters in place - heart rate now is in the 80s which is controlled - anticoagulation: Eliquis 5 mg b.i.d. Diet: Heart healthy DVT prophylaxis: On Eliquis Code status: DNR Disposition: Pending clinical course weaning oxygen likely greater than 3 days Subjective Date/time seen: 09/07/21 16:45 Patient seen examined. She is working with physical therapy. Discussed case with barista who believes patient improved oxygenation acharya after getting diuretic yesterday and he would like to continue Diuresis. however grain cleaner and transfer operator believes patient is volume depleted and would rather hold diuretic. she had net -3 L fluid output yesterday after the diuretic. this time patient is having episodes of hypotension, while having baseline low blood pressures now is being exacerbated. She was admitted because of syncopal episodes so I a.m. in favor that she probably is on the volume down side. I discussed everything with the patient and she understands. With her blood pressures being soft I will hold the diuretics. Hopefully everything will improve with antibiotics, prednisone for ILD. Patient denies fever, chills, nausea, vomiting, diarrhea, chest pain, shortness of breath. She feels comfortable on the 6 L oxygen. With activity her oxygen requirements go up to 10 L. Review of Systems Review of Systems: All systems reviewed & are unremarkable except as noted in HPI and below Exam Narrative: - GENERAL: Pleasant elderly woman lying comfortably in bed in no acute distress eating lunch - EYES: EOMI. Anicteric. - HENT: Moist mucous membranes. - LUNGS: Diminished lung sounds, significant crackles in lef
[2021-09-07] MEDS: SENNA/DOCUSATE SODIUM TABLET 1 TAB PO (20:59)
[2021-09-08] VITALS (21 sets, daily range): BP systolic 95–111; BP diastolic 52–74; PULSE 70–108; RESP 17–20; TEMP 36.1–36.7; O2SAT 79–98
[2021-09-08 06:16] LABS: Basophils Percent Auto 0.2 % (0.2-1.2); Eosinophils Absolute Auto 0.3 K/mm3 (0-0.3); Eosinophils Percent Auto 1.9 % (0-4.4); Hematocrit 39.4 % (37.0-47.0); Hemoglobin 12.6 g/dL (12.0-15.0); Immature Granulocyte Absolute 0.15 K/mm3 (0.00-0.031); Immature Granulocyte Percent A 0.9 % (0-0.5); Lymphocytes Percent Auto 20.9 % (18.3-44.2); Mean Corpuscular Hemoglobin 30.2 pg (26-34); Mean Corpuscular Volume 94.5 fl (80-100); Mean Platelet Volume 9.9 fl (7.4-10.4); Monocytes Percent Auto 6.2 % (2.6-8.5); Neutrophils Absolute Auto 11.4 K/mm3 (1.3-6.7); Neutrophils Percent Auto 69.9 % (45.5-73.1); Platelet Count Result 322 k/mm3 (150-375); Red Blood Count 4.17 M/mm3 (4.2-5.4); Red Cell Distribution Width 13.8 % (11.5-14.5); White Blood Count 16.3 K/mm3 (4.5-10.0)
[2021-09-08 06:28] LABS: Anion Gap 1 mmol/L (8-16); Blood Urea Nitrogen 19 mg/dL (7-17); Calcium 8.9 mg/dL (8.4-10.2); Carbon Dioxide 36 mmol/L (22-30); Chloride 100 mmol/L (98-107); Estimated CRCL calculation 56 ml/min; Estimated Glomerular Filt Rate > 60; Glucose 84 mg/dL (65-110); Magnesium 2.3 mg/dL (1.6-2.3); Potassium 3.7 mmol/L (3.4-5.0); Sodium 137 mmol/L (137-145)
[2021-09-08] MEDS: IPRATROPIUM BR 0.02% INH SOLN 0.5 MG/2.5 ML VIAL INHALATION ×2 (08:36→13:39)
[2021-09-08] MEDS: ALBUTEROL SULFATE NEB 2.5 MG/0.5 ML INH INHALATION ×2 (08:37→13:39)
--- NOTE | 2021-09-08 08:56 | PM.PNCARD ---
Progress Note: A&P Additional Plan 80-year-old woman with chronic aortic valve stenosis and chronic interstitial lung disease. She enters the hospital with increasing shortness of breath with the change that she is now in atrial fibrillation. Heart rate is well controlled. Her atrial fibrillation is of unknown chronicity and therefore as I mentioned in previous notes she should be anticoagulated for 4-6 weeks before there is an attempt at DC cardioversion. Her cardiovascular status is otherwise stable. We will continue to follow her while she is in the hospital and my partner, Dr. Teixeira will see her in the office following discharge and discuss the concept of cardioversion in the near future Artis Rangel MD [facility] Subjective Date/time seen: date of service:09/08/21 08:56 Interval history: She follow-up visit in this 80-year-old lady with: Evidence of moderate aortic valve stenosis and development of atrial fibrillation onset of the arrhythmia unclear. She follows in our office because of her chronic aortic valve disease. Patient presented with some increasing dyspnea several days ago. She also has chronic significant interstitial lung disease. This morning she is comfortable in appearance seated in bed head of the bed is elevated about 45? watching television. No distress. Date of service 09/08/2021: Patient is wearing face mask oxygen at this time receiving a breathing treatment. She offers no new complaints. Continues to have rate controlled atrial fibrillation and anticoagulation. Discussed with the patient the concept of attempting cardioversion after she has been anticoagulated for approximately 4-6 weeks. Exam Const: General: comfortable and no acute distress Other: Pleasant elderly lady no distress of any kind. Wearing nasal cannula oxygen. HENMT: Mouth: Yes moist mucous membranes and Yes dry mucous membranes Eyes: Sclera: sclerae normal Pupils: Equal, round and reactive pupils present Neck: Neck: supple and no JVD Resp: Effort & Inspection: normal respiratory effort Auscultation: rales and diminished lung sounds Other: Diffuse dry sounding velcro rales Cardio: Rate: regular rate Rhythm: abnormal rhythm irregularly irregular Heart sounds: Murmur heart sound present systolic II/ and at the base Other: soft crescendo decrescendo murmur of aortic valve stenosis at the base GI: Auscultation: normal bowel sounds Skin: General skin exam: normal color Neuro: Cranial nerves: Yes Equal, round and reactive pupils present Cognition (Neuro): normal cognition Extrem: General: normal to inspection Other: no peripheral edema Objective Data Vital Signs Vital Signs: Vital Signs - 24 hr 09/07/21 09:08 09/07/21 09:20 09/07/21 10:30 Temperature 36.3 C L Pulse Rate 97 85 56 L Respiratory Rate 20 20 20 Blood Pressure 88/57 L Pulse Oximetry 92 97 09/07/21 12:00 09/07/21 13:05 09/07/21 14:41 Temperature 36.2 C L Pulse Rate 83 70 73 Respiratory Rate 20 20 Blood Pressure 90/56 L Pulse Oximetry 100 09/07/21 16:00 09/07/21 17:42 09/07/21 18:00 Temperature 36.4 C L Pulse Rate 88 67 Respiratory Rate 24 H Blood Pressure 114/71 Pulse Oximetry 94 92 09/07/21 18:05 09/07/21 18:07 09/07/21 18:09 Temperature Pulse Rate 67 65 63 Respiratory Rate Blood Pressure 114/71 103/77 101/74 Pulse Oximetry 09/07/21 18:10 09/07/21 18:20 09/07/21 18:33 Temperature Pulse Rate Respiratory Rate Blood Pressure Pulse Oximetry 82 L 94 98 09/07/21 18:53 09/07/21 19:22 09/07/21 20:00 Temperature 36.6 C 36.6 C Pulse Rate 99 78 Respiratory Rate 18 18 Blood Pressure 100/46 L 100/46 L Pulse Oximetry 97 91 91 09/07/21 20:52 09/07/21 20:58 09/07/21 21:00 Temperature Pulse Rate 68 90 69 Respiratory Rate 22 H 20 Blood Pressure Pulse Oximetry 09/07/21 21:01 09/07/21 23:35 09/08/21 00:00 Temperature 36.8 C Pulse Rate 97
[2021-09-08] MEDS: predniSONE 20 MG TABLET PO (09:04)
[2021-09-08] MEDS: LORATADINE 10 MG TABLET PO (09:04)
[2021-09-08] MEDS: guaiFENesin 12 HR 600 MG TABCR PO ×2 (09:04→21:15)
[2021-09-08] MEDS: APIXABAN 5 MG TABLET PO ×2 (09:04→21:15)
[2021-09-08] MEDS: FERROUS SULFATE 324 MG TABLET PO (09:04)
[2021-09-08] MEDS: ASPIRIN 81 MG ENTERIC TABLET PO (09:05)
[2021-09-08] MEDS: METOPROLOL TARTRATE 12.5 MG TABLET PO ×2 (09:05→21:15)
[2021-09-08] MEDS: ATORVASTATIN 40 MG TABLET PO (09:05)
[2021-09-08] MEDS: CHOLECALCIFEROL 1,000 UNITS TABLET 2000 UNITS PO (09:05)
[2021-09-08] MEDS: FLUTICASONE PROPIONATE 0.05% NA SPR 16 GM BTL (*BKC) 2 SPRAY NASAL ×2 (09:06→21:15)
[2021-09-08] MEDS: DOCUSATE SODIUM 100 MG CAPSULE PO (09:06)
--- NOTE | 2021-09-08 15:18 | PM.IMPN ---
Progress Note: A&P Assessment and Plan (1) Aortic stenosis: Qualifiers: Cardiac valve disease etiology: etiology unspecified Qualified Code(s): I35.0 - Nonrheumatic aortic (valve) stenosis Code(s): I35.0 - Nonrheumatic aortic (valve) stenosis Status: Acute (2) Obstructive sleep apnea on CPAP: Code(s): G47.33 - Obstructive sleep apnea (adult) (pediatric); Z99.89 - Dependence on other enabling machines and devices Status: Acute (3) Atrial fibrillation: Qualifiers: Atrial fibrillation type: unspecified Qualified Code(s): I48.91 - Unspecified atrial fibrillation Code(s): I48.91 - Unspecified atrial fibrillation Status: Acute (4) Hypotension: Code(s): I95.9 - Hypotension, unspecified Status: Acute (5) Person under investigation for COVID-19: Code(s): Z20.822 - Contact with and (suspected) exposure to COVID-19 Status: Acute (6) Bilateral pneumonia: Code(s): J18.9 - Pneumonia, unspecified organism Status: Acute (7) Acute and chronic respiratory failure with hypoxia: Code(s): J96.21 - Acute and chronic respiratory failure with hypoxia Status: Acute Additional Plan # acute on chronic hypoxic respiratory failure # interstitial 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 Less likely because of the aortic stenosis at the valve disease moderate. Likely etiology of the syncope is from sepsis from the pneumonia -blood pressure better this morning # community-acquired pneumonia, bilateral pneumonia -persistent leukocytosis 16,000 which may be secondary to infection or the steroids which we started as she is clinically feeling better - continue antibiotics: Cefepime and azithromycin # aortic stenosis - primary label stamper Dr. Teixeira for possible TAVR - no more inpatient workup required for aortic stenosis -moderate disease # obstructive sleep apnea -Patient to use home CPAP, wash driller assisting # atrial fibrillation -rate control metoprolol 12.5 mg b.i.d., blood pressure is quite soft, hold parameters in place - heart rate now is in the 80s which is controlled - anticoagulation: Eliquis 5 mg b.i.d. Diet: Heart healthy DVT prophylaxis: On Eliquis Code status: DNR Disposition: Pending clinical course weaning oxygen likely greater than 3 days Subjective Date/time seen: 09/08/21 15:18 Patient seen examined. She has no new complaints today. Blood pressure stable today. She still on 5 L oxygen, hopefully we can continue weaning while on the steroids for I LD and antibiotics for the pneumonia. Patient states she is doing well today. She denies fever, chills, nausea, vomiting, diarrhea, chest pain, shortness of breath. Review of Systems Review of Systems: All systems reviewed & are unremarkable except as noted in HPI and below Exam Narrative: - GENERAL: Pleasant elderly woman lying comfortably in bed in no acute distress eating lunch - EYES: EOMI. Anicteric. - HENT: Moist mucous membranes. - LUNGS: Diminished lung sounds, significant crackles in left lung, persistent from yesterday likely fibrosis as she has persistent crackles despite 3 L fluid output from diuretics - CARDIOVASCULAR: normal rate irregular rhythm - ABDOMEN: Soft, non-tender and non-distended. No palpable masses. - EXTREMITIES: No edema. Peripheral pulses 2+. Non-tender. - NEUROLOGIC: No focal neurological deficits. CN II-XII grossly intact. - PSYCHIATRIC: Awake, Alert and oriented. Appropriate mood and affect. - SKIN: No rashes or lesions. Warm. - LYMPH: No cervical lymphadenopathy. Objective Data Vital Signs Vital Signs: Vital Signs - 24 hr
[2021-09-08] MEDS: CALCIUM CARBONATE (OSCAL) 500 MG TABLET PO (16:27)
[2021-09-08] MEDS: SENNA/DOCUSATE SODIUM TABLET 1 TAB PO (21:14)
[2021-09-09] VITALS (18 sets, daily range): BP systolic 70–117; BP diastolic 50–82; PULSE 63–112; RESP 16–20; TEMP 36.1–36.8; O2SAT 91–100
[2021-09-09 06:19] LABS: Hematocrit 41.5 % (37.0-47.0); Hemoglobin 12.7 g/dL (12.0-15.0); Mean Corpuscular HGB Conc 30.6 g/dl (32-36); Mean Corpuscular Hemoglobin 30.1 pg (26-34); Mean Corpuscular Volume 98.3 fl (80-100); Mean Platelet Volume 9.9 fl (7.4-10.4); Platelet Count Result 331 k/mm3 (150-375); Red Blood Count 4.22 M/mm3 (4.2-5.4); Red Cell Distribution Width 14.1 % (11.5-14.5); White Blood Count 17.5 K/mm3 (4.5-10.0)
[2021-09-09 06:32] LABS: Anion Gap 4 mmol/L (8-16); Blood Urea Nitrogen 22 mg/dL (7-17); Carbon Dioxide 33 mmol/L (22-30); Chloride 102 mmol/L (98-107); Estimated CRCL calculation 50 ml/min; Estimated Glomerular Filt Rate > 60; Glucose 117 mg/dL (65-110); Potassium 3.7 mmol/L (3.4-5.0); Sodium 139 mmol/L (137-145)
[2021-09-09] MEDS: FERROUS SULFATE 324 MG TABLET PO (08:06)
[2021-09-09] MEDS: predniSONE 20 MG TABLET PO (08:06)
[2021-09-09] MEDS: APIXABAN 5 MG TABLET PO ×2 (08:07→21:17)
[2021-09-09] MEDS: ATORVASTATIN 40 MG TABLET PO (08:07)
[2021-09-09] MEDS: ASPIRIN 81 MG ENTERIC TABLET PO (08:07)
[2021-09-09] MEDS: FLUTICASONE PROPIONATE 0.05% NA SPR 16 GM BTL (*BKC) 2 SPRAY NASAL ×2 (08:08→21:18)
[2021-09-09] MEDS: CHOLECALCIFEROL 1,000 UNITS TABLET 2000 UNITS PO (08:08)
[2021-09-09] MEDS: DOCUSATE SODIUM 100 MG CAPSULE PO (08:08)
[2021-09-09] MEDS: guaiFENesin 12 HR 600 MG TABCR PO ×2 (08:09→21:17)
[2021-09-09] MEDS: METOPROLOL TARTRATE 12.5 MG TABLET PO ×2 (08:09→21:17)
[2021-09-09] MEDS: IPRATROPIUM BR 0.02% INH SOLN 0.5 MG/2.5 ML VIAL INHALATION ×2 (08:21→19:55)
[2021-09-09] MEDS: ALBUTEROL SULFATE NEB 2.5 MG/0.5 ML INH INHALATION ×2 (08:21→19:55)
--- NOTE | 2021-09-09 11:42 | PM.PNCARD ---
Progress Note: A&P Additional Plan 80-year-old woman with: Chronic moderate aortic valve stenosis and atrial fibrillation of relatively recent onset probably over the last couple of to 3 months. She is rate controlled and anticoagulated and with respect to this appears to be hemodynamically stable. No new cardiac recommendations today. Will continue to follow this patient in our office and consider DC cardioversion after a suitable period of anticoagulation. Artis Rangel MD [facility] Subjective Date/time seen: date of service:09/09/21 11:42 Interval history: She follow-up visit in this 80-year-old lady with: Evidence of moderate aortic valve stenosis and development of atrial fibrillation onset of the arrhythmia unclear. She follows in our office because of her chronic aortic valve disease. Patient presented with some increasing dyspnea several days ago. She also has chronic significant interstitial lung disease. This morning she is comfortable in appearance seated in bed head of the bed is elevated about 45? watching television. No distress. Date of service 09/08/2021: Patient is wearing face mask oxygen at this time receiving a breathing treatment. She offers no new complaints. Continues to have rate controlled atrial fibrillation and anticoagulation. Discussed with the patient the concept of attempting cardioversion after she has been anticoagulated for approximately 4-6 weeks. date of service 09/09/2021: Patient resting comfortably with nasal cannula oxygen in place upon awakening offers no cardiovascular complaints. For some reason she has been swabbed for coronavirus this morning. No notes in the chart that describe the reason for this. Exam Const: General: comfortable and no acute distress Other: Pleasant elderly lady no distress of any kind. Wearing nasal cannula oxygen. HENMT: Mouth: Yes moist mucous membranes and Yes dry mucous membranes Eyes: Sclera: sclerae normal Pupils: Equal, round and reactive pupils present Neck: Neck: supple and no JVD Resp: Effort & Inspection: normal respiratory effort Auscultation: rales and diminished lung sounds Other: Diffuse dry sounding velcro rales Cardio: Rate: regular rate Rhythm: abnormal rhythm irregularly irregular Heart sounds: Murmur heart sound present systolic II/ and at the base Other: soft crescendo decrescendo murmur of aortic valve stenosis at the base GI: Auscultation: normal bowel sounds Skin: General skin exam: normal color Neuro: Cranial nerves: Yes Equal, round and reactive pupils present Cognition (Neuro): normal cognition Extrem: General: normal to inspection Other: no peripheral edema Objective Data Vital Signs Vital Signs: Vital Signs - 24 hr 09/08/21 12:00 09/08/21 13:40 09/08/21 14:22 Temperature 36.7 C Pulse Rate 79 84 79 Respiratory Rate 17 18 Blood Pressure 102/57 L Pulse Oximetry 96 09/08/21 16:00 09/08/21 18:13 09/08/21 18:49 Temperature 36.2 C L Pulse Rate 78 94 86 Respiratory Rate 18 Blood Pressure 100/54 L 95/62 L Pulse Oximetry 96 87 L 09/08/21 18:50 09/08/21 18:51 09/08/21 20:00 Temperature Pulse Rate 103 H 108 H 74 Respiratory Rate Blood Pressure 96/63 L 97/70 L Pulse Oximetry 82 L 79 L 09/08/21 21:15 09/08/21 22:00 09/09/21 00:00 Temperature 36.1 C L Pulse Rate 108 H 70 75 Respiratory Rate 20 Blood Pressure 101/74 Pulse Oximetry 98 98 09/09/21 02:00 09/09/21 02:05 09/09/21 04:00 Temperature 36.2 C L 36.3 C L Pulse Rate 63 77 78 Respiratory Rate 20 18 Blood Pressure 96/75 L 116/73 Pulse Oximetry 98 96 09/09/21 06:00 09/09/21 08:24 09/09/21 08:33 Temperature 36.5 C Pulse Rate 93 85 84 Respiratory Rate 20 20 20 Blood Pressure 105/69 Pulse Oximetry 98 93 09/09/21 10:00 Temperature 36.1 C L Pulse Rate 78 Respiratory Rate 18 Blood Pressure 70/50 L Pulse Oximetry 98 Intake/Output Intake/Output: Intake &
[2021-09-09] MEDS: MIDODRINE HCL 10 MG TABLET PO ×2 (11:47→19:51)
--- NOTE | 2021-09-09 12:02 | PCPTNOTE ---
Did not see for Physical Therapy treatment this date per RN.
[2021-09-09 15:49] LABS: EDCOVIDSCREEN Negative (Negative)
--- NOTE | 2021-09-09 16:07 | PCRCNOTE ---
Window of time for administration has passed. See next scheduled administration.
--- NOTE | 2021-09-09 16:38 | PM.IMPN ---
Progress Note: A&P Assessment and Plan (1) Aortic stenosis: Qualifiers: Cardiac valve disease etiology: etiology unspecified Qualified Code(s): I35.0 - Nonrheumatic aortic (valve) stenosis Code(s): I35.0 - Nonrheumatic aortic (valve) stenosis Status: Acute (2) Obstructive sleep apnea on CPAP: Code(s): G47.33 - Obstructive sleep apnea (adult) (pediatric); Z99.89 - Dependence on other enabling machines and devices Status: Acute (3) Atrial fibrillation: Qualifiers: Atrial fibrillation type: unspecified Qualified Code(s): I48.91 - Unspecified atrial fibrillation Code(s): I48.91 - Unspecified atrial fibrillation Status: Acute (4) Hypotension: Code(s): I95.9 - Hypotension, unspecified Status: Acute (5) Bilateral pneumonia: Code(s): J18.9 - Pneumonia, unspecified organism Status: Acute (6) Acute and chronic respiratory failure with hypoxia: Code(s): J96.21 - Acute and chronic respiratory failure with hypoxia Status: Acute Additional Plan # acute on chronic hypoxic respiratory failure # interstitial lung disease - a has NSIP, continue prednisone 20 mg as per [employer] - patient 6 L oxygen at rest, unable to wean, this may be her new normal, may need home oxygen therapy - I/O: net negative 470cc # hypotension # syncope - patient was started on metoprolol recently, also was recently diuresis Lasix, may have hypertension secondary to all of this - syncope was etiology of admission. Less likely because of the aortic stenosis at the valve disease moderate. Likely etiology of the syncope is from sepsis from the pneumonia -starting midodrine 10 mg t.i.d. for hypertension -patient is still having episodes of hypotension despite having almost a week of antibiotics # community-acquired pneumonia, bilateral pneumonia -persistent leukocytosis 17,000 which may be secondary to infection or the steroids which we started as she is clinically feeling better - continue antibiotics: Cefepime and azithromycin day 6 # aortic stenosis - primary petroleum supply specialist Dr. Teixeira for possible TAVR - no more inpatient workup required for aortic stenosis - moderate disease on most recent echocardiogram # obstructive sleep apnea -Patient to use home CPAP, [employer] assisting # persistent atrial fibrillation -rate control metoprolol 12.5 mg b.i.d., blood pressure is quite soft, hold parameters in place - heart rate now is in the 80s which is controlled - anticoagulation: Eliquis 5 mg b.i.d. -likely cardioversion in a month after adequate anticoagulation Diet: Heart healthy DVT prophylaxis: On Eliquis Code status: DNR Disposition: Pending clinical course weaning oxygen likely greater than 3 days Subjective Date/time seen: 09/09/21 16:38 Patient seen examined. Patient was slightly hypotensive this morning. Starting midodrine t.i.d. as I think she is volume down. She still on a 6 L of oxygen and we are unable to wean any more. Will discuss with [employer]rar [employer] or [employer] again tomorrow. Cardiology would like to keep as is and cardioverted possibly in the future after adequate anticoagulation. Patient has fever, chills, nausea, vomiting, diarrhea, lightheadedness. Review of Systems Review of Systems: All systems reviewed & are unremarkable except as noted in HPI and below Exam Narrative: - GENERAL: Pleasant elderly woman lying comfortably in bed in no acute distress - EYES: EOMI. Anicteric. - HENT: Moist mucous membranes. - LUNGS: significant crackles in left lung, persistent from yesterday likely fibrosis as she has persistent crackles despite 3 L fluid output from diuretics and now getting hypotensive - CARDIOVASCULAR: normal rate irregular rhythm - ABDOMEN: Soft, non-tender and non-distended. No palpable masses. - EXTREMITIES: No edema. Peripheral pulses 2+. Non-tender. - NEUROLOGIC: No focal neurological deficits. CN II-XII grossly intact. - PSYCHIATRIC: [place]
[2021-09-09] MEDS: SENNA/DOCUSATE SODIUM TABLET 1 TAB PO (21:17)
[2021-09-10] VITALS (21 sets, daily range): BP systolic 94–132; BP diastolic 60–92; PULSE 48–99; RESP 16–21; TEMP 35.8–36.6; O2SAT 92–100
[2021-09-10] MEDS: ALBUTEROL SULFATE NEB 2.5 MG/0.5 ML INH INHALATION ×3 (01:04→13:34)
[2021-09-10] MEDS: IPRATROPIUM BR 0.02% INH SOLN 0.5 MG/2.5 ML VIAL INHALATION ×3 (01:04→13:34)
[2021-09-10] MEDS: BENZONATATE 100 MG CAPSULE PO (08:59)
[2021-09-10] MEDS: FLUTICASONE PROPIONATE 0.05% NA SPR 16 GM BTL (*BKC) 2 SPRAY NASAL ×2 (08:59→20:30)
[2021-09-10] MEDS: guaiFENesin 12 HR 600 MG TABCR PO ×2 (08:59→20:28)
[2021-09-10] MEDS: CALCIUM CARBONATE (OSCAL) 500 MG TABLET PO (08:59)
[2021-09-10] MEDS: ATORVASTATIN 40 MG TABLET PO (09:00)
[2021-09-10] MEDS: LORATADINE 10 MG TABLET PO (09:00)
[2021-09-10] MEDS: METOPROLOL TARTRATE 12.5 MG TABLET PO ×2 (09:00→20:29)
[2021-09-10] MEDS: MIDODRINE HCL 10 MG TABLET PO ×3 (09:00→18:03)
[2021-09-10] MEDS: APIXABAN 5 MG TABLET PO ×2 (09:00→20:29)
[2021-09-10] MEDS: DOCUSATE SODIUM 100 MG CAPSULE PO (09:00)
[2021-09-10] MEDS: ASPIRIN 81 MG ENTERIC TABLET PO (09:00)
[2021-09-10] MEDS: predniSONE 20 MG TABLET PO (09:00)
[2021-09-10] MEDS: CHOLECALCIFEROL 1,000 UNITS TABLET 2000 UNITS PO (09:00)
[2021-09-10] MEDS: FERROUS SULFATE 324 MG TABLET PO (09:00)
--- NOTE | 2021-09-10 09:45 | PM.PNCARD ---
Progress Note: A&P Additional Plan 80-year-old lady with chronic aortic valve disease appears to be moderate by current echocardiogram. She now also was in atrial fibrillation and for that reason is anticoagulated. By exam and by x-ray she does not appear to be volume overloaded but she still has increased oxygen needs. She has been stable on 6 L nasal cannula oxygen than plan for today is to allow her to be discharged. Follow up with my partner in the office is already scheduled a will ensure that that takes place. She may be a candidate for cardioversion in the near future when she has been anticoagulated for a sufficient period of time. Current echocardiogram does not suggest that she needs aortic valve replacement at this time. Artis Rangel MD [facility] Subjective Date/time seen: Date of service: 09/10/21 09:45 Interval history: Follow-up visit in this 80-year-old lady with: Chronic aortic valve disease appears to have moderate aortic stenosis by echo results and is followed longitudinally in the office as mentioned above. She also has now developed atrial fibrillation of uncertain duration. For this reason she has been systemically anticoagulated with apixaban. Patient is requiring significantly more oxygen than she was at baseline. She otherwise is comfortable this morning and has no complaints. Hospitalist plans for discharge to a skilled care facility are noted. Exam Const: General: comfortable and no acute distress Other: Pleasant elderly lady no distress HENMT: Mouth: Yes moist mucous membranes Eyes: Sclera: sclerae normal Pupils: Equal, round and reactive pupils present Neck: Neck: supple and no JVD Other: Carotid pulses are intact soft transmitted murmur to the neck bilaterally Resp: Other: Breath sounds are remarkable for some central rhonchi. Cardio: Rhythm: abnormal rhythm irregularly irregular Other: Also grade 2/6 crescendo decrescendo murmur audible at the left sternal border and the base, no diastolic murmur GI: GI Palp: Yes Soft to palpation Auscultation: normal bowel sounds Skin: General skin exam: normal color Neuro: Cognition (Neuro): normal cognition Extrem: General: normal to inspection Objective Data Vital Signs Vital Signs: Vital Signs - 24 hr 09/09/21 10:00 09/09/21 12:00 09/09/21 14:00 Temperature 36.1 C L 36.2 C L Pulse Rate 78 78 75 Respiratory Rate 18 20 Blood Pressure 70/50 L 104/67 Pulse Oximetry 98 98 09/09/21 16:00 09/09/21 18:00 09/09/21 19:58 Temperature 36.8 C Pulse Rate 78 83 94 Respiratory Rate 18 20 Blood Pressure 100/64 Pulse Oximetry 96 09/09/21 20:00 09/09/21 20:08 09/09/21 21:17 Temperature Pulse Rate 83 94 66 Respiratory Rate 20 Blood Pressure Pulse Oximetry 100 09/09/21 22:00 09/10/21 00:00 09/10/21 01:00 Temperature 36.1 C L Pulse Rate 104 H 75 94 Respiratory Rate 18 20 Blood Pressure 102/77 Pulse Oximetry 97 09/10/21 01:10 09/10/21 02:00 09/10/21 04:00 Temperature 36.4 C L Pulse Rate 94 50 L 71 Respiratory Rate 20 21 H Blood Pressure 94/69 L Pulse Oximetry 100 09/10/21 06:00 09/10/21 08:00 09/10/21 08:31 Temperature 36.3 C L 36.6 C Pulse Rate 48 L 99 92 Respiratory Rate 18 16 20 Blood Pressure 109/69 113/79 Pulse Oximetry 96 97 09/10/21 08:41 09/10/21 08:57 09/10/21 09:00 Temperature Pulse Rate 90 70 Respiratory Rate 20 Blood Pressure Pulse Oximetry 94 Intake/Output Intake/Output: Intake & Output 09/07/21 09/08/21 09/09/21 09/10/21 23:59 23:59 23:59 23:59 Intake Total 1770 1780 1520 472 Output Total 2400 2700 1525 500 [facility] -[phone] Meds/Results Medications: Active Medications Generic Name Dose Route Start Last Admin Trade Name Freq PRN Reason Stop Dose Admin Albuterol 2.5 mg 09/03/21 02:00 09/10/21 08:31 Albuterol Sulfate Neb 2.5 Mg/0.5 Ml Inh INHALATION 2.5 mg Q6HRT ROSANGELA Administration Apixaban 5 mg
--- NOTE | 2021-09-10 10:53 | PCNWS ---
Weekly nutritional screen. Patient is tolerating current diet with adequate intake. No weight loss reported. No nutritional needs at this time.
--- NOTE | 2021-09-10 11:36 | PM.PNPUL ---
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 Patient now with worsening shortness of breath, hypoxemia and worsening ground-glass and interstitial infiltrates on her chest x-ray and CT scan. Patient is currently being treated for pneumonia with cefepime and azithromycin. She is afebrile with a white blood cell count of 19.7. Patient has no wheezes and being treated with albuterol 2.5 nebs q.6 and ipratropium 0.5 mg nebs q.6. She is clinically improved on prednisone 20 mg p.o. q.day and I will continue this dose today. The patient has a blood gas on 04/02 with a pH of 7.35/37/52 on 6 L nasal cannula. There is no evidence of hypercarbic respiratory failure. Patient serum bicarb is 26. Of note the patient has An echocardiogram on 09/04 demonstrating worsening aortic stenosis, LVEF 55-60, severe left atrial enlargement, mild MR, moderate TR with a PA SP of 48 and normal RV size and function. Patient also has new atrial fibrillation this admission and is being anticoagulated with apixaban. Cardiology is following and no additional inpatient workup at this time. Possible JANNETH plus-minus left right heart catheterization consideration in the future. given patient's low blood pressure she is unable to be aggressively diuresed. 09/06 Clinically patient states that her breathing is the same and has the same cough and phlegm production. She denies any hemoptysis. She has had worsening oxygenation overnight and now requires 12 L with saturations 93%. Chest x-ray was obtained in states shows stable diffuse interstitial infiltrates bilaterally. Her influenza swab is negative. Her BNP is 3820. She has been given Lasix 20 IV. she is afebrile with a decreasing white count of 15.4 on cefepime and azithromycin. She has no wheezing on exam. this time I will continue prednisone 20 mg a day and follow her clinically. 09/07 Patient continues to slowly improve clinically. patient diuresed yesterday with 20 of Lasix -3.9 L and now she is on 6 L nasal cannula with saturations 92%. Her white blood cell count is 15.0. at this time I would continue cefepime, azithromycin and prednisone 20. Clinically she improved with diuretics and I would continue aggressive diuresis as tolerated by her cardiac and renal systems. 09/10/21 patient clinically improved. I spoke to the family regarding her home machine in her home machine is not contaminated and was working well per the the patient. Patient has been on 6 L nasal cannula with saturations 96%. Patient is debilitated and will be discharged to a skilled facility. Patient continues to have low blood pressure making diuresis difficult but she is -2 0.3 L since admission. Chest x-ray today shows stable diffuse interstitial alveolar infiltrates with minimal change since 09/06/2021. Today is day 9 of antibiotics and she is afebrile with a white blood cell count of 17.5, will DC. Regarding her NSIP, continue prednisone 20 mg p.o. q.day for now. She should continue this dose until she follows up in the Pulmonary Clinic in approximately 3-4 weeks. She will need supplemental oxygen during the day as determined by her senior care facility. Discussed with Dr. Chandler (2) Obstructive sleep apnea on CPAP: Code(s): G47.33 - Obstructive sleep apnea (adult) (pediatric); Z99.89 - Dependence on other enabling machines and devices Status: Acute Assessment and Plan: 09/05 Her prior pulmonary office visit note patient is on auto PAP 5-15. 09/06 Patient's family has brought in her home CPAP machine and we will have respiratory therapy check this and she will wear this machine tonight. 09/07 She wore no CPAP last night. she did bring her home machine in and I h
[2021-09-10 12:46] LABS: Basophils Absolute Auto 0.1 K/mm3 (0.0-0.1); Basophils Percent Auto 0.3 % (0.2-1.2); Eosinophils Absolute Auto 0.2 K/mm3 (0-0.3); Hematocrit 39.6 % (37.0-47.0); Hemoglobin 12.5 g/dL (12.0-15.0); Immature Granulocyte Absolute 0.21 K/mm3 (0.00-0.031); Immature Granulocyte Percent A 1.3 % (0-0.5); Lymphocytes Percent Auto 10.3 % (18.3-44.2); Mean Corpuscular HGB Conc 31.6 g/dl (32-36); Mean Corpuscular Hemoglobin 30.3 pg (26-34); Mean Corpuscular Volume 95.9 fl (80-100); Mean Platelet Volume 9.7 fl (7.4-10.4); Monocytes Absolute Auto 0.7 K/mm3 (0.1-0.6); Monocytes Percent Auto 4.4 % (2.6-8.5); Neutrophils Absolute Auto 13.6 K/mm3 (1.3-6.7); Neutrophils Percent Auto 82.7 % (45.5-73.1); Platelet Count Result 337 k/mm3 (150-375); Red Blood Count 4.13 M/mm3 (4.2-5.4); Red Cell Distribution Width 14.1 % (11.5-14.5); White Blood Count 16.5 K/mm3 (4.5-10.0)
[2021-09-10 13:03] LABS: Anion Gap 2 mmol/L (8-16); Blood Urea Nitrogen 20 mg/dL (7-17); Carbon Dioxide 35 mmol/L (22-30); Chloride 101 mmol/L (98-107); Estimated CRCL calculation 56 ml/min; Estimated Glomerular Filt Rate > 60; Glucose 118 mg/dL (65-110); Potassium 4.6 mmol/L (3.4-5.0); Sodium 138 mmol/L (137-145)
[2021-09-10 13:42] LABS: SARS-CoV-2 RNA PCR Negative
--- NOTE | 2021-09-10 16:32 | PM.IMPN ---
Progress Note: A&P Assessment and Plan (1) Aortic stenosis: Qualifiers: Cardiac valve disease etiology: etiology unspecified Qualified Code(s): I35.0 - Nonrheumatic aortic (valve) stenosis Code(s): I35.0 - Nonrheumatic aortic (valve) stenosis Status: Acute (2) Obstructive sleep apnea on CPAP: Code(s): G47.33 - Obstructive sleep apnea (adult) (pediatric); Z99.89 - Dependence on other enabling machines and devices Status: Acute (3) Atrial fibrillation: Qualifiers: Atrial fibrillation type: unspecified Qualified Code(s): I48.91 - Unspecified atrial fibrillation Code(s): I48.91 - Unspecified atrial fibrillation Status: Acute (4) Hypotension: Code(s): I95.9 - Hypotension, unspecified Status: Acute (5) Person under investigation for COVID-19: Code(s): Z20.822 - Contact with and (suspected) exposure to COVID-19 Status: Acute (6) Bilateral pneumonia: Code(s): J18.9 - Pneumonia, unspecified organism Status: Acute (7) Acute and chronic respiratory failure with hypoxia: Code(s): J96.21 - Acute and chronic respiratory failure with hypoxia Status: Acute Additional Plan # acute on chronic hypoxic respiratory failure # interstitial lung disease - a has NSIP, continue prednisone 20 mg as per superintendent horticulture, will continue for 3-4 weeks until seen by superintendent horticulture outpatient - patient 6 L oxygen at rest, unable to wean, this may be her new normal, she will need home oxygen therapy # hypotension # syncope - patient was started on metoprolol recently, also was recently diuresis Lasix, may have hypertension secondary to all of this - syncope was etiology of admission. Less likely because of the aortic stenosis at the valve disease moderate. Likely etiology of the syncope is from sepsis from the pneumonia -continue midodrine 10 mg t.i.d. for hypertension -patient is still having episodes of hypotension despite having almost a week of antibiotics # community-acquired pneumonia, bilateral pneumonia -persistent leukocytosis 17,000 which may be secondary to infection or the steroids which we started as she is clinically feeling better - continue antibiotics: Cefepime and azithromycin day 7, stopping antibiotics as she completed 1 week # aortic stenosis - primary staying machine operator Dr. Teixeira for possible TAVR, follow up this week - no more inpatient workup required for aortic stenosis - moderate disease on most recent echocardiogram # obstructive sleep apnea -Patient to use home CPAP, superintendent [employer] assisting in home oxygen setting, will do pulse ox overnight for CPAP with 5L O2 bleed # persistent atrial fibrillation -rate control metoprolol 12.5 mg b.i.d., blood pressure is quite soft, hold parameters in place - heart rate now is in the 80s which is controlled - anticoagulation: Eliquis 5 mg b.i.d. -likely cardioversion in a month after adequate anticoagulation Diet: Heart healthy DVT prophylaxis: On Eliquis Code status: DNR Disposition: SNF tomorrow if possible Subjective Date/time seen: 09/10/21 16:32 patient seen examined. She is doing well today. She was started on midodrine for hypotension and hopefully that will help with her symptoms of syncope and orthostatics. Her volume status appears to be stable, she is stable on 6 L of oxygen. Will do overnight CPAP of 5 L bleed in oxygen test. She completing antibiotics today for a total of 1 week antibiotics. will likely discharge tomorrow with 6 L home oxygen therapy. She will have follow-up with Dr. Teixeira for her aortic stenosis this week. She will be discharged with 20 mg of prednisone daily and follow-up with pulmonology in 3-4 weeks. Otherwise she is doing well she denies fever, chills, nausea, vomiting, diarrhea. she was restarted for COVID-19, likely will need placement , will discuss with Case Management tomorrow. Review of Systems Review of Systems: All systems reviewed &
[2021-09-10] MEDS: SENNA/DOCUSATE SODIUM TABLET 1 TAB PO (20:29)
[2021-09-11] VITALS (10 sets, daily range): BP systolic 93–112; BP diastolic 55–73; PULSE 62–90; RESP 18–20; TEMP 36.6–37; O2SAT 91–97
--- NOTE | 2021-09-11 00:26 | PCRCNOTE ---
Nebulizer treatment scheduled for 09/10/21 not administered. RT not available due to emergencies elsewhere in hospital.
[2021-09-11] MEDS: IPRATROPIUM BR 0.02% INH SOLN 0.5 MG/2.5 ML VIAL INHALATION (07:54)
[2021-09-11] MEDS: ALBUTEROL SULFATE NEB 2.5 MG/0.5 ML INH INHALATION (07:54)
[2021-09-11] MEDS: ATORVASTATIN 40 MG TABLET PO (07:59)
[2021-09-11] MEDS: METOPROLOL TARTRATE 12.5 MG TABLET PO (08:00)
[2021-09-11] MEDS: BENZONATATE 100 MG CAPSULE PO (08:01)
[2021-09-11] MEDS: MIDODRINE HCL 10 MG TABLET PO ×2 (08:01→12:15)
[2021-09-11] MEDS: DOCUSATE SODIUM 100 MG CAPSULE PO (08:01)
[2021-09-11] MEDS: CALCIUM CARBONATE (OSCAL) 500 MG TABLET PO (08:01)
[2021-09-11] MEDS: APIXABAN 5 MG TABLET PO (08:01)
[2021-09-11] MEDS: CHOLECALCIFEROL 1,000 UNITS TABLET 2000 UNITS PO (08:01)
[2021-09-11] MEDS: predniSONE 20 MG TABLET PO (08:02)
[2021-09-11] MEDS: FLUTICASONE PROPIONATE 0.05% NA SPR 16 GM BTL (*BKC) 2 SPRAY NASAL (08:02)
[2021-09-11] MEDS: guaiFENesin 12 HR 600 MG TABCR PO (08:02)
[2021-09-11] MEDS: LORATADINE 10 MG TABLET PO (08:02)
[2021-09-11] MEDS: FERROUS SULFATE 324 MG TABLET PO (08:02)
[2021-09-11] MEDS: ASPIRIN 81 MG ENTERIC TABLET PO (08:03)
[2021-09-11 08:19] LABS: Basophils Absolute Auto 0.1 K/mm3 (0.0-0.1); Basophils Percent Auto 0.3 % (0.2-1.2); Eosinophils Absolute Auto 0.2 K/mm3 (0-0.3); Eosinophils Percent Auto 1.2 % (0-4.4); Hematocrit 39.5 % (37.0-47.0); Hemoglobin 12.3 g/dL (12.0-15.0); Immature Granulocyte Absolute 0.24 K/mm3 (0.00-0.031); Immature Granulocyte Percent A 1.4 % (0-0.5); Lymphocytes Absolute Auto 3.89 K/mm3 (0.9-3.2); Lymphocytes Percent Auto 22.8 % (18.3-44.2); Mean Corpuscular HGB Conc 31.1 g/dl (32-36); Mean Corpuscular Hemoglobin 30.5 pg (26-34); Mean Platelet Volume 9.6 fl (7.4-10.4); Monocytes Absolute Auto 1.2 K/mm3 (0.1-0.6); Monocytes Percent Auto 6.9 % (2.6-8.5); Neutrophils Absolute Auto 11.5 K/mm3 (1.3-6.7); Neutrophils Percent Auto 67.4 % (45.5-73.1); Platelet Count Result 351 k/mm3 (150-375); Red Blood Count 4.03 M/mm3 (4.2-5.4); White Blood Count 17.1 K/mm3 (4.5-10.0)
[2021-09-11 08:26] LABS: Anion Gap 1 mmol/L (8-16); Blood Urea Nitrogen 18 mg/dL (7-17); Carbon Dioxide 37 mmol/L (22-30); Chloride 99 mmol/L (98-107); Estimated CRCL calculation 56 ml/min; Estimated Glomerular Filt Rate > 60; Glucose 82 mg/dL (65-110); Potassium 4.1 mmol/L (3.4-5.0); Sodium 137 mmol/L (137-145)
--- NOTE | 2021-09-11 09:19 | PM.PNCARD ---
Progress Note: A&P Assessment and Plan (1) Aortic stenosis: Qualifiers: Cardiac valve disease etiology: etiology unspecified Qualified Code(s): I35.0 - Nonrheumatic aortic (valve) stenosis <MARIBEL Soto - Last Filed: 09/11/21 09:39> Code(s): I35.0 - Nonrheumatic aortic (valve) stenosis <MARIBEL Soto - Last Filed: 09/11/21 09:39> Status: Acute <MARIBEL Soto - Last Filed: 09/11/21 09:39> Assessment and Plan: History of aortic stenosis followed in our office by Dr. Teixeira. Valve area calculated at severe but gradients which support more moderate disease. No further inpatient workup is needed regarding her aortic stenosis. This will be followed as an outpatient. <MARIBEL Soto - Last Filed: 09/11/21 09:39> (2) Atrial fibrillation: Qualifiers: Atrial fibrillation type: unspecified Qualified Code(s): I48.91 - Unspecified atrial fibrillation <MARIBEL Soto - Last Filed: 09/11/21 09:39> Code(s): I48.91 - Unspecified atrial fibrillation <MARIBEL Soto - Last Filed: 09/11/21 09:39> Status: Acute <MARIBEL Soto - Last Filed: 09/11/21 09:39> Assessment and Plan: Rate control strategy with metoprolol 12.5 mg p.o. b.i.d. heart rate generally in 50s to 70s. She is being anticoagulated with apixaban 5 mg p.o. q.12 b.i.d. H&H stable, no signs of bleeding. <MARIBEL Soto - Last Filed: 09/11/21 09:39> (3) Syncope: Code(s): R55 - Syncope and collapse <MARIBEL Soto - Last Filed: 09/11/21 09:39> Status: Acute <MARIBEL Soto - Last Filed: 09/11/21 09:39> Assessment and Plan: apparently was orthostatic on admission with systolic blood pressure dropping from 90 lying down to 70 on standing up. Check orthostatics once before discharge to ensure that she is not orthostatic now on metoprolol. <MARIBEL Soto - Last Filed: 09/11/21 09:39> (4) Acute and chronic respiratory failure with hypoxia: Code(s): J96.21 - Acute and chronic respiratory failure with hypoxia <MARIBEL Soto - Last Filed: 09/11/21 09:39> Status: Acute <MARIBEL Soto - Last Filed: 09/11/21 09:39> Assessment and Plan: Pneumonia superimposed on chronic lung disease. Management per primary service. <MARIBEL Soto - Last Filed: 09/11/21 09:39> (5) Hypotension: Code(s): I95.9 - Hypotension, unspecified <MARIBEL Soto - Last Filed: 09/11/21 09:39> Status: Acute <MARIBEL Stoo - Last Filed: 09/11/21 09:39> Assessment and Plan: Has been normotensive for the past couple of days. We will check orthostatic blood pressure once more before discharge. <MARIBEL Soto - Last Filed: 09/11/21 09:39> Additional Plan I personally saw and evaluated the patient. I reviewed Lorena Driver's note and agree with findings and plan of care as documented in the note. Patient reports improvement in her shortness of breath and is being transferred to a rehab. Her echocardiogram during this hospitalization showed aortic stenosis in the severe range by valve criteria, however, v max and mean gradients are relatively low. Patient will be scheduled to see in the cardiology clinic with me in next 2-4 weeks, and she will undergo further evaluation for her aortic valve stenosis. I discussed with the patient and she verbalized understanding. <Wu Teixeira MD - Last Filed: 09/11/21 11:02> Subjective Date/time seen: 09/11/21 09:19 <MARIBEL Soto - Last Filed: 09/11/21 09:39> Interval history: Cardiology follow-up for aortic stenosis, atrial fibrillation Date of service 09/11/2021: Feeling well this morning and does not have any complaints. She does say that generally she is feeling weak and like she is in need of physical therapy. Explained
--- NOTE | 2021-09-11 11:12 | PM.PNPUL ---
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 Patient now with worsening shortness of breath, hypoxemia and worsening ground-glass and interstitial infiltrates on her chest x-ray and CT scan. Patient is currently being treated for pneumonia with cefepime and azithromycin. She is afebrile with a white blood cell count of 19.7. Patient has no wheezes and being treated with albuterol 2.5 nebs q.6 and ipratropium 0.5 mg nebs q.6. She is clinically improved on prednisone 20 mg p.o. q.day and I will continue this dose today. The patient has a blood gas on 04/02 with a pH of 7.35/37/52 on 6 L nasal cannula. There is no evidence of hypercarbic respiratory failure. Patient serum bicarb is 26. Of note the patient has An echocardiogram on 09/04 demonstrating worsening aortic stenosis, LVEF 55-60, severe left atrial enlargement, mild MR, moderate TR with a PA SP of 48 and normal RV size and function. Patient also has new atrial fibrillation this admission and is being anticoagulated with apixaban. Cardiology is following and no additional inpatient workup at this time. Possible JANNETH plus-minus left right heart catheterization consideration in the future. given patient's low blood pressure she is unable to be aggressively diuresed. 09/06 Clinically patient states that her breathing is the same and has the same cough and phlegm production. She denies any hemoptysis. She has had worsening oxygenation overnight and now requires 12 L with saturations 93%. Chest x-ray was obtained in states shows stable diffuse interstitial infiltrates bilaterally. Her influenza swab is negative. Her BNP is 3820. She has been given Lasix 20 IV. she is afebrile with a decreasing white count of 15.4 on cefepime and azithromycin. She has no wheezing on exam. this time I will continue prednisone 20 mg a day and follow her clinically. 09/07 Patient continues to slowly improve clinically. patient diuresed yesterday with 20 of Lasix -3.9 L and now she is on 6 L nasal cannula with saturations 92%. Her white blood cell count is 15.0. at this time I would continue cefepime, azithromycin and prednisone 20. Clinically she improved with diuretics and I would continue aggressive diuresis as tolerated by her cardiac and renal systems. 09/10/21 patient clinically improved. I spoke to the family regarding her home machine in her home machine is not contaminated and was working well per the the patient. Patient has been on 6 L nasal cannula with saturations 96%. Patient is debilitated and will be discharged to a skilled facility. Patient continues to have low blood pressure making diuresis difficult but she is -2 0.3 L since admission. Chest x-ray today shows stable diffuse interstitial alveolar infiltrates with minimal change since 09/06/2021. Today is day 9 of antibiotics and she is afebrile with a white blood cell count of 17.5, will DC. Regarding her NSIP, continue prednisone 20 mg p.o. q.day for now. She should continue this dose until she follows up in the Pulmonary Clinic in approximately 3-4 weeks. She will need supplemental oxygen during the day as determined by her halfway facility. 09/11 patient continues to slowly improve. Currently she is on 4 L nasal cannula with saturations 95%. Continue prednisone 20 today. No wheezes on exam and the patient states that the albuterol and ipratropium nebulizers do give her some benefit. I will change her to Anoro Ellipta 62.5-25 at 1 puff q.day. Discussed with Dr. Chandler (2) Obstructive sleep apnea on CPAP: Code(s): G47.33 - Obstructive sleep apnea (adult) (pediatric); Z99.89 - Dependence on other enabling machines and devices Status: Acute Assessment
[2021-09-11 13:45] LABS: EDCOVIDSCREEN Negative (Negative)
[2021-09-11] MEDS: BISACODYL 5 MG TABLET EC PO (14:18)
--- NOTE | 2021-09-11 14:22 | PCRCNOTE ---
Home O2 eval not needed, currently at 5 L at rest, doesn't walk at this time. No home O2 eval needed when discharge is to a SNF, half-way staff at D/C destination will titrate O2 as needed to keep adequate sats.
--- NOTE | 2021-09-11 16:20 | PM.DS ---
DS: Admitting Diagnosis Discharge Date 09/11/21 Admitting Diagnosis Syncope, hypotension, acute on chronic hypoxic respiratory failure, ILD, atrial fibrillation DS: Discharge Diagnosis Discharge Diagnosis (1) Aortic stenosis: Qualifiers: Cardiac valve disease etiology: etiology unspecified Qualified Code(s): I35.0 - Nonrheumatic aortic (valve) stenosis Code(s): I35.0 - Nonrheumatic aortic (valve) stenosis Status: Acute (2) Obstructive sleep apnea on CPAP: Code(s): G47.33 - Obstructive sleep apnea (adult) (pediatric); Z99.89 - Dependence on other enabling machines and devices Status: Acute (3) Atrial fibrillation: Qualifiers: Atrial fibrillation type: unspecified Qualified Code(s): I48.91 - Unspecified atrial fibrillation Code(s): I48.91 - Unspecified atrial fibrillation Status: Acute (4) Hypotension: Code(s): I95.9 - Hypotension, unspecified Status: Acute (5) Bilateral pneumonia: Code(s): J18.9 - Pneumonia, unspecified organism Status: Acute (6) Acute and chronic respiratory failure with hypoxia: Code(s): J96.21 - Acute and chronic respiratory failure with hypoxia Status: Acute (7) Syncope: Code(s): R55 - Syncope and collapse Status: Acute DS: Summary Hospital Course Reason for hospitalization: Acute hypoxic respiratory failure secondary to fluid overload versus ILD versus community-acquired pneumonia Hospital Course: Patient is 80-year-old female with past medical history chronic respiratory failure on p.r.n. oxygen, aortic stenosis, chronic interstitial lung disease, sleep apnea, hypertension, CAD, anemia presents to ED with complaints of dizziness and syncopal episode. Patient has had multiple episodes of repeated syncope associated with orthostatic hypotension. Patient was found to have bilateral extensive pulmonary patchy infiltrates. At 1st she was thought to be fluid overload and given limited diuresis which only worsened her blood pressures. She was started on midodrine 10 mg t.i.d. which works well for her. Her COVID-19 test have been negative. Patient was also thought maybe to have bilateral pneumonia and treated with cefepime azithromycin for 7 days total. Despite completing antibiotics she was still hypoxic. She was started on low-dose beta-nia from Cardiology for AFib, which had to be stopped as she was having more hypotensive episodes. AFib may been triggered by pneumonia, the more likely secondary to sleep apnea. Patient's oxygen requirements have gone up to 12 L and slowly wean down to 6 L, even down to 4 L with rest on discharge. We were unable to wean her completely to room air, she will go home with oxygen. Cardiology also evaluated patient for aortic stenosis where she has a very small diameter aortic valve however other values are not consistent with severe disease. Patient to follow-up with Dr. Teixeira this week for aortic stenosis possible TAVR. For the AFib patient is started on Eliquis anticoagulation and may have cardioversion in 1-2 months if deemed necessary by locksmith apprentice. She was attempted to be put on beta-nia however became hypotensive so she will not have any beta nia on discharge. At time of discharge her heart rate was normal rate 64. [employer] Dr. Arias was following case as well and believes she may be having an exacerbation of NSIP. He started her on 20 mg prednisone daily and will continue for 3-4 weeks until follow-up appointment later this month. Patient is also being fitted for CPAP machine and will need a repeat outpatient sleep study as her sleep apnea CPAP settings may need to be adjusted. It appears patient has progression of her interstitial lung disease after her hypoxia did not improve despite antibiotics and diuresis. Her syncope is likely orthostatic and has been put on midodrine 10 mg t.i.d.. Her respiratory failure is likely more chronic than acute now. Lorenzo
[2021-09-15 10:54] LABS: Procalcitonin 0.1 ng/mL
== END 2021-09-11 15:15 | DRG 193 ==
LOC: ANHED 16:45 → ANHIMU 22:40 → ANH2MED 09-06 14:19 → ANH3MEDSUR 09-11 07:14 → ANH2MED 09-14 14:34 → ANH3MEDSUR 09-14 14:34 → ANHIMU 09-14 14:34
PROVIDERS: Internal Medicine Pulmonary Disease; Nurse Practitioner; Physician Assistant; Student in an Organized Health Care Education/Training Program; Admitting Provider Family Medicine; Emergency Provider Emergency Medicine; PCP Family Medicine; Visit Provider Nurse Practitioner Adult Health
DX: J18.9 Pneumonia, unspecified organism (principal); J96.21 Acute and chronic respiratory failure with hypoxia; I48.19 Other persistent atrial fibrillation; I35.0 Nonrheumatic aortic (valve) stenosis; Z20.822 Contact with and (suspected) exposure to COVID-19; G47.33 Obstructive sleep apnea (adult) (pediatric); I95.9 Hypotension, unspecified; R55 Syncope and collapse; I25.10 Atherosclerotic heart disease of native coronary artery without angina pectoris; D64.9 Anemia, unspecified; E78.5 Hyperlipidemia, unspecified; J84.89 Other specified interstitial pulmonary diseases; I11.0 Hypertensive heart disease with heart failure; I50.9 Heart failure, unspecified; I73.9 Peripheral vascular disease, unspecified; Z66 Do not resuscitate; Z87.891 Personal history of nicotine dependence; Z99.81 Dependence on supplemental oxygen
CPT/HCPCS: 36415; 36600; 70450; 71045; 71046; 71275; 80048; 80053; 80076; 82375; 82533; 82728; 82805; 83050; 83605; 83615; 83735; 83880; 84145; 84443; 84484; 85025; 85027; 85380; 85610; 85730; 86140; 87040; 87070; 87086; 87205; 87426; 87804; 93005; 93306; 93880; 94640; 94762; 96361; 96365; 96367; 96372; 96375; 97110; 97162; 97165; 97530; 97535; 99285; A9270; C9803; G0378; J0456; J0692; J1650; J1940; J1956; J2930; J3370; J7030; J7512; Q9967; U0003; U0005

== ENCOUNTER 2021-12-07 14:47 | Emergency (ER) | payer MEDICARE, SELFPAY ==
--- NOTE | ~2021-12-07 | CT_ITS ---
EXAMINATION: CT abdomen pelvis w con DATE: 12/07/2021 19:57 INDICATION: Left lower quadrant abdominal pain. Left groin pain. TECHNIQUE: Computed tomography (CT) of the abdomen and pelvis was performed with 100 mL Omnipaque 350 intravenous contrast. Automated exposure control and iterative reconstruction technique were employe d. The dose-length product was 1333.13 mGy-cm. COMPARISON: Chest CT 09/02/2021 FINDINGS: The visualized portions of the lung bases demonstrate severe chronic interstitial lung dise ase. No pleural effusion. Cardiomegaly is noted. There are coronary artery calcifications. No pericar dial effusion. The liver and spleen are normal. There is a gallstone in the gallbladder, which is nor mal in size. The pancreas and adrenal glands are normal. There is moderate atrophy of right kidney an d mild atrophy of left kidney. There are no dilated loops of bowel. The appendix is not visualized. T here are no pathologically enlarged lymph nodes. There is no free intraperitoneal fluid. There is sev ere osteoarthritis of the hips. There is moderate lumbar and thoracic spondylosis. There is a chronic compression fracture of T9. IMPRESSION: 1. Severe osteoarthritis of the hips. 2. Severe chronic interstitial lung disease. Reviewed, dictated and finalized at location A.
[2021-12-07 15:00] VITALS: PULSE 129; RESP 16; TEMP 36.2; O2SAT 97
--- NOTE | 2021-12-07 15:04 | ECG_ITS ---
Measurements Intervals [place] Rate: 108 P: [place]: 0 QRS: -54 QRSD: 90 T: 66 QT: 305 QTc: 409 Interpretive Statements ATRIAL FIBRILLATION WITH RAPID VENTRICULAR RESPONSE PATTERN CONSISTENT WITH PULMONARY DISEASE BASELINE ARTIFACT LEFT ANTERIOR FASCICULAR BLOCK [QRS AXIS <= -45, QR IN I, RS IN II] MODERATE VOLTAGE CRITERIA FOR LVH, CONSIDER NORMAL VARIANT [MEETS CRITERIA IN ONE OF: R(aVL), S(V1), R(V5), R(V5/V6)+S(V1)] NONSPECIFIC ST & T-WAVE ABNORMALITY ABNORMAL ECG COMPARED TO ECG 09/02/2021 14:18:52 LEFT ANTERIOR FASCICULAR BLOCK NOW PRESENT T-WAVE ABNORMALITY NOW PRESENT Electronically Signed On 12-07-2021 17:35:22 CDT by Hugo Keene M.D.
--- NOTE | 2021-12-07 15:07 | PC.NURSE ---
there is a red, crusted rash noted under pt R breast that was found while tech was doing EKG.
[2021-12-07 19:04] VITALS: BP 81/54; PULSE 102; RESP 22; O2SAT 96
[2021-12-07 19:07] VITALS: BP 91/72; PULSE 112; RESP 20; O2SAT 95
[2021-12-07] MEDS: SODIUM CHLORIDE 0.9% IV 1,000 ML 999 ML IV CONT (19:12)
--- NOTE | 2021-12-07 19:14 | ED.ABDPAIN ---
HPI - Abdominal Pain General Chief Complaint: Abdominal Pain Stated Complaint: left sided pelvic/abd pain Time Seen by Provider: 12/07/21 18:46 Source: patient Mode of arrival: ambulatory Limitations: no limitations History of Present Illness HPI narrative: Patient is 81 years old white female came from assisted living complaining of left lower quadrant pain started for the last few days. Getting worse. Patient denies any fever, chills, nausea, vomiting, diarrhea or constipation. Patient is DNR. Related Data Home Medications Medication Instructions Recorded Confirmed aspirin 81 mg tablet,delayed 81 mg PO DAILY 10/29/19 09/03/21 release calcium carbonate 600 mg calcium 600 mg PO DAILY 10/29/19 09/03/21 (1,500 mg) tablet cholecalciferol (vitamin D3) 50 2,000 unit PO DAILY 10/29/19 09/03/21 mcg (2,000 unit) tablet ferrous sulfate 325 mg (65 mg 325 mg PO DAILY 10/29/19 09/03/21 iron) tablet fluticasone propionate 2 spray INTRANASAL BID 09/03/21 09/03/21 Allergies Allergy/AdvReac Type Severity Reaction Status Date / Time Penicillins Allergy Unknown unknown Verified 07/27/21 10:57 Review of Systems Review of Systems: CONSTITUTIONAL: Denies fever, chills, or sweats. EYES: Denies visual changes, redness, or discharge. ENT: Denies rhinorrhea, congestion, sore throat, or otalgia. CARDIOVASCULAR: Denies chest pain, palpitations, or edema. RESPIRATORY: Denies cough or dyspnea. GASTROINTESTINAL: Left lower quadrant pain a. GENITOURINARY: Denies dysuria or hematuria. SKIN: Denies rash or itching. MUSCULOSKELETAL: Denies back pain, joint pain, or myalgia. NEUROLOGIC: Denies headache, numbness, or weakness. PSYCHIATRIC: Denies anxiety or depression. [facility] Past Medical History Medical History Aortic stenosis [id number] on echocardiogram in October 2018 with a valve area of 1.1 centimeter squared. Congestive heart failure Echocardiogram in October 2018 showed a normal LV size and function with moderate concentric left ventricular hypertrophy and impaired diastolic relaxation grade 1 with an EF of 55 to 60%. Coronary artery disease Former smoker 30 pack years. Quit 1970. Hyperlipidemia Hypertension Interstitial lung disease Obstructive sleep apnea on CPAP Seasonal allergies Surgical History Surgical History History of arthroplasty of right knee History of cervical spinal surgery History of left-sided carotid endarterectomy (2013) Family History Family History Other Diabetes mellitus Social History Social History Social History: The patient is and lives in her own home in [place]. She lives in [facility] for many years and moved back to the area in 2018. She designates her son, London Browne, as her surrogate decision maker and she wishes to be a do not resuscitate though she is okay with central line and vasopressors if needed. Smoking packs per day: 2.5 Smoking cigarettes per day: 50.0 Years smoked: 15 Smoking pack-years: 37.50 Smoking status: Former smoker Tobacco type: cigarettes Second hand tobacco smoke exposure: No Smoking end date: 09/08/70 Additional smoking assessment comments: quit smoking 50 years ago Alcohol intake: never Alcohol use details: Occasionally. Substance use: never Spiritual care concerns: No Exam Narrative: General appearance: Well-developed, well-nourished Skin: Normal color Head: Normocephalic, nontraumatic Eyes: Clear conjunctiva ENT: Oropharynx normal, ears normal, nose normal Neck: Supple, nontender Chest and respiratory: Airway patent, no respiratory distress, no accessory muscle use Heart: Regular rate/rhythm Abdomen: Soft, left lower quadrant tenderness, slight guarding, no rebound , no organomegaly, quie
[2021-12-07 19:21] LABS: Basophils Absolute Auto 0.1 K/mm3 (0.0-0.1); Basophils Percent Auto 0.3 % (0.2-1.2); Eosinophils Percent Auto 0.1 % (0-4.4); Hematocrit 51.5 % (37.0-47.0); Hemoglobin 15.9 g/dL (12.0-15.0); Immature Granulocyte Absolute 0.08 K/mm3 (0.00-0.031); Immature Granulocyte Percent A 0.6 % (0-0.5); Lymphocytes Absolute Auto 4.11 K/mm3 (0.9-3.2); Lymphocytes Percent Auto 28.3 % (18.3-44.2); Mean Corpuscular HGB Conc 30.9 g/dl (32-36); Mean Corpuscular Hemoglobin 30.1 pg (26-34); Mean Corpuscular Volume 97.4 fl (80-100); Monocytes Absolute Auto 0.7 K/mm3 (0.1-0.6); Monocytes Percent Auto 4.8 % (2.6-8.5); Neutrophils Absolute Auto 9.6 K/mm3 (1.3-6.7); Neutrophils Percent Auto 65.9 % (45.5-73.1); Platelet Count Result 264 k/mm3 (150-375); Red Blood Count 5.29 M/mm3 (4.2-5.4); Red Cell Distribution Width 14.5 % (11.5-14.5); White Blood Count 14.5 K/mm3 (4.5-10.0)
[2021-12-07 19:31] LABS: Alanine Aminotransferase 35 U/L (4-35); Albumin Level 4.2 g/dL (3.5-5.1); Alkaline Phosphatase 60 U/L (38-126); Anion Gap 4 mmol/L (8-16); Aspartate Amino Transferase 32 U/L (14-36); Bilirubin,Total 0.5 mg/dL (0.2-1.3); Blood Urea Nitrogen 32 mg/dL (7-17); Calcium 10.2 mg/dL (8.4-10.2); Carbon Dioxide 32 mmol/L (22-30); Chloride 105 mmol/L (98-107); Estimated CRCL calculation 40 ml/min; Estimated Glomerular Filt Rate 53; Glucose 113 mg/dL (65-110); Lipase 261 U/L (23-300); Potassium 4.7 mmol/L (3.4-5.0); Sodium 141 mmol/L (137-145)
--- NOTE | 2021-12-07 19:32 | PC.NURSE ---
Report received from DAISY Vega. Assumed care of patient at this time.
[2021-12-07 20:39] LABS: Add Urine Microscopic? NO; Appearance Urine Clear (Clear); Bilirubin Urine Negative (Negative); Blood Urine Negative (Negative); Color Urine Yellow (Yellow); Glucose Urine UA Negative (Negative); Ketones Urine Negative (Negative); Leukocyte Esterase Ur Negative LEU/UL (Negative); Nitrate Urine Negative (Negative); Protein Urine Negative (Negative); Urobilinogen Urine Negative mg/dL (<2.0)
[2021-12-07 21:15] VITALS: BP 100/75; PULSE 98; RESP 18; O2SAT 97
== END 2021-12-07 21:17 | disposition home or self-care (01) ==
PROVIDERS: Emergency Medicine; Emergency Provider Emergency Medicine; PCP Family Medicine
DX: R10.32 Left lower quadrant pain (principal); I50.9 Heart failure, unspecified; I11.0 Hypertensive heart disease with heart failure; I35.0 Nonrheumatic aortic (valve) stenosis; I25.10 Atherosclerotic heart disease of native coronary artery without angina pectoris; E78.5 Hyperlipidemia, unspecified; J84.9 Interstitial pulmonary disease, unspecified; G47.33 Obstructive sleep apnea (adult) (pediatric); Z96.651 Presence of right artificial knee joint; Z66 Do not resuscitate; Z79.82 Long term (current) use of aspirin; Z79.01 Long term (current) use of anticoagulants; Z87.891 Personal history of nicotine dependence; M16.0 Bilateral primary osteoarthritis of hip; I48.91 Unspecified atrial fibrillation; R94.31 Abnormal electrocardiogram [ECG] [EKG]; I44.4 Left anterior fascicular block
CPT/HCPCS: 36415; 74177; 80053; 81003; 83690; 85025; 93005; 96361; 96374; 99284; J7030; Q9967

== ENCOUNTER 2022-02-26 16:08 | Inpatient (IN) | payer MEDICARE, SELFPAY ==
[2022-02-26] VITALS (16 sets, daily range): BP systolic 60–94; BP diastolic 40–72; PULSE 80–115; RESP 12–22; TEMP 36.9; O2SAT 95–100
--- NOTE | ~2022-02-26 | XR_ITS ---
EXAMINATION: XR chest 1V portable DATE: 02/28/2022 05:58 INDICATION: Respiratory failure. TECHNIQUE: A single frontal view of the chest was obtained. COMPARISON: Chest single view 02/27/2022 FINDINGS: There are airspace and interstitial opacities throughout the lungs bilaterally. No pleural effusion or pneumothorax. Cardiomegaly is noted. The endotracheal tube tip is 1.5 cm above the clyde . The nasogastric tube tip is beyond the inferior margin of the radiograph, but at least to the stoma ch. A right internal jugular central venous catheter is seen with tip in the superior vena cava. IMPRESSION: 1. Stable diffuse lung disease, consistent with pulmonary edema versus pneumonia superimposed on hospice nurse casandra interstitial lung disease. 2. Cardiomegaly. Reviewed, dictated and finalized at location A. IMPRESSION: 1. Stable diffuse lung disease, consistent with pulmonary edema versus pneumoni a superimposed on chronic interstitial lung disease. 2. Cardiomegaly.
--- NOTE | ~2022-02-26 | XR_ITS ---
EXAMINATION: XR chest 1V portable INDICATION: Shortness of breath TECHNIQUE: Portable AP chest at 1708 hours COMPARISON: 02/26/2022 FINDINGS: A right internal jugular catheter ends in the proximal superior vena cava. Diffuse intersti tial and airspace opacities are present which demonstrate interval worsening. The cardiomediastinal s ilhouette is stable. No definite pleural effusion or pneumothorax identified. IMPRESSION: 1. Diffuse lung disease with interval worsening, consistent with pneumonia and/or pulmonary edema. Reviewed, dictated and finalized at location A. IMPRESSION: 1. Diffuse lung disease with interval worsening, consistent with pneumonia and/ or pulmonary edema.
--- NOTE | ~2022-02-26 | XR_ITS ---
XR chest 1V portable DATE: 02/26/2022 16:48 INDICATION: Extremity edema. Hypotension. TECHNIQUE: AP chest on 02/26/2022 at 1645 hours COMPARISON: 09/10/2021 portable AP chest at 0850 hours FINDINGS: Diffuse extensive patchy bilateral pulmonary infiltrates. Tuan B-lines and minor fissure prominence suggest congestive changes, subpleural and pulmonary edema. Pneumonia and aspiration are n ot excluded. Cardiomegaly. Aortic calcification. Osteopenia. Prominent osteoarthritic change at the glenohumeral joints. IMPRESSION: Extensive bilateral pulmonary infiltrates, with noncemented fissure Tuan B-lines, sugge sting pulmonary edema. Pneumonia is an additional consideration. Cardiomegaly, aortic atherosclerosis Reviewed, dictated and finalized at location A. IMPRESSION: Extensive bilateral pulmonary infiltrates, with noncemented fissure Tuan B-lines, suggesting pulmonary edema. Pneumonia is an additional conside ration. Cardiomegaly, aortic atherosclerosis
--- NOTE | ~2022-02-26 | XR_ITS ---
EXAMINATION: XR chest port-a-cath/central Exam Date/Time: 02/26/2022 22:30 CDT HISTORY: central line placement Comparison: Same date at 4:45 PM. RESULT: Lines, tubes, and devices: New right IJ central venous line, terminating in the SVC. Lungs and pleura: Slightly improved diffuse patchy/ground glass opacities and slightly decreased nancie earance of the Tuan's B lines and peripheral reticulation. Cardiomediastinal silhouette: Stable cardiomediastinal silhouette. Other: No acute osseous or upper abdominal finding. IMPRESSION: New right IJ central venous line, in good position. Slightly improved pulmonary opacities may reflect slightly decreased pulmonary edema. Reviewed, dictated and finalized at location K.
--- NOTE | ~2022-02-26 | XR_ITS ---
EXAMINATION: XR chest ET placement, XR abdomen NG/feed tube insert Exam Date/Time: 02/27/2022 20:00 CDT HISTORY: intubated Comparison: X-ray chest 02/27/2022, 02/26/2022. RESULT: Lines, tubes, and devices: Endotracheal tube terminating 2.3 cm above the clyde. Right IJ central l ine remains in stable and good position. NG tube, tip and side port project over the stomach. Lungs and pleura: Unchanged pulmonary opacities. Cardiomediastinal silhouette: Stable, mostly obscured cardiomediastinal silhouette. Other: No acute osseous or upper abdominal finding. IMPRESSION: New endotracheal and nasogastric tubes, both in good position. Appropriately positioned right IJ cent ral venous line. Unchanged pulmonary opacities. Reviewed, dictated and finalized at location K. IMPRESSION: New endotracheal and nasogastric tubes, both in good position. Appropriately po sitioned right IJ central venous line. Unchanged pulmonary opacities.
--- NOTE | 2022-02-26 16:26 | ECG_ITS ---
Measurements Intervals [place] Rate: 98 P: [place]: 0 QRS: -38 QRSD: 98 T: 104 QT: 332 QTc: 425 Interpretive Statements ATRIAL FIBRILLATION LEFT AXIS DEVIATION PATTERN CONSISTENT WITH PULMONARY DISEASE VOLTAGE CRITERIA FOR LVH NONSPECIFIC ST & T-WAVE ABNORMALITY ABNORMAL ECG COMPARED TO ECG 12/07/2021 15:10:18 NO SIGNIFICANT CHANGES Electronically Signed On 02-27-2022 12:08:21 CDT by Hugo Keene M.D.
[2022-02-26] MEDS: SODIUM CHLORIDE 0.9% IV 1,000 ML 999 ML IV CONT ×2 (16:44→22:28)
[2022-02-26 16:49] LABS: Basophils Percent Auto 0.2 % (0.2-1.2); Hematocrit 43.8 % (37.0-47.0); Hemoglobin 13.5 g/dL (12.0-15.0); Immature Granulocyte Absolute 0.13 K/mm3 (0.00-0.031); Immature Granulocyte Percent A 1.1 % (0-0.5); Lymphocytes Absolute Auto 1.67 K/mm3 (0.9-3.2); Lymphocytes Percent Auto 13.9 % (18.3-44.2); Mean Corpuscular HGB Conc 30.8 g/dl (32-36); Mean Corpuscular Hemoglobin 31.1 pg (26-34); Mean Corpuscular Volume 100.9 fl (80-100); Mean Platelet Volume 10.1 fl (7.4-10.4); Monocytes Absolute Auto 0.4 K/mm3 (0.1-0.6); Monocytes Percent Auto 3.7 % (2.6-8.5); Neutrophils Absolute Auto 9.7 K/mm3 (1.3-6.7); Neutrophils Percent Auto 81.1 % (45.5-73.1); Platelet Count Result 248 k/mm3 (150-375); Red Blood Count 4.34 M/mm3 (4.2-5.4); Red Cell Distribution Width 15.6 % (11.5-14.5)
[2022-02-26 17:01] LABS: Alanine Aminotransferase 36 U/L (6-35); Albumin Level 3.5 g/dL (3.5-5.1); Alkaline Phosphatase 40 U/L (38-126); Anion Gap 3 mmol/L (8-16); Aspartate Amino Transferase 26 U/L (14-36); Bilirubin,Total 0.5 mg/dL (0.2-1.3); Blood Urea Nitrogen 35 mg/dL (7-17); Calcium 8.9 mg/dL (8.4-10.2); Carbon Dioxide 32 mmol/L (22-30); Chloride 105 mmol/L (98-107); Estimated CRCL calculation 49 ml/min; Estimated Glomerular Filt Rate 60; Glucose 178 mg/dL (65-110); Potassium 4.2 mmol/L (3.4-5.0); Sodium 140 mmol/L (137-145)
[2022-02-26] MEDS: SODIUM CHLORIDE 0.9% IV 500 ML 999 ML IV CONT (17:38)
[2022-02-26 19:51] LABS: Lactic Acid Reflex 0.6 mmol/L (0.7-2.0)
[2022-02-26 20:00] LABS: CRP < 0.5 mg/dL (<1.0)
[2022-02-26 20:02] LABS: NT Pro B Type Natriuretic Pept 2510 pg/mL (5-100)
[2022-02-26 20:20] LABS: Appearance Urine Clear (Clear); Bilirubin Urine Negative (Negative); Blood Urine Negative (Negative); Color Urine Yellow (Yellow); Glucose Urine UA Negative (Negative); Ketones Urine Negative (Negative); Leukocyte Esterase Ur Negative LEU/UL (Negative); Nitrate Urine Negative (Negative); Protein Urine Trace mg/dL (Negative); Urobilinogen Urine 0.2 mg/dL (<2.0); pH Urine 5.5 (5.0-9.0)
[2022-02-26 20:22] LABS: Troponin I 0.063 ng/mL (0.000-0.034)
[2022-02-26 20:24] LABS: Add Urine Microscopic? YES; Mucus Urine Rare /lpf; RBC Urine 0-2 /hpf (0-2); WBC Urine 0-3 /hpf
--- NOTE | 2022-02-26 21:01 | ED.GENADULT ---
HPI - General Adult General Chief complaint: Recheck/Abnormal Lab/Rx Stated complaint: abnormal labs Time Seen by Provider: 02/26/22 16:27 History of Present Illness HPI narrative: Pt sent here for abnormal labs and low BP. Not sure waht the abnormalities were. Pt has chronic lower extremity edema that is unchanged per patient. Pt has some mild SOB but denies CP or fever or cough. Related Data Home Medications Medication Instructions Recorded Confirmed aspirin 81 mg tablet,delayed 81 mg PO DAILY 10/29/19 02/26/22 release (Adult Aspirin Regimen) calcium carbonate 600 mg calcium 600 mg PO DAILY 10/29/19 02/26/22 (1,500 mg) tablet (Calcium) cholecalciferol (vitamin D3) 50 2,000 unit PO DAILY 10/29/19 02/26/22 mcg (2,000 unit) tablet ferrous sulfate 325 mg (65 mg 325 mg PO DAILY 10/29/19 02/26/22 iron) tablet (Feosol) fluticasone propionate 50 2 spray intranasal BID 09/03/21 02/26/22 mcg/actuation nasal spray,suspension Allergies Allergy/AdvReac Type Severity Reaction Status Date / Time Penicillins Allergy Unknown unknown Verified 07/27/21 10:57 Review of Systems Review of Systems: All systems reviewed & are unremarkable except as noted in HPI and below PMFSH Past Medical History Medical History Aortic stenosis [id number] on echocardiogram in October 2018 with a valve area of 1.1 centimeter squared. Congestive heart failure Echocardiogram in October 2018 showed a normal LV size and function with moderate concentric left ventricular hypertrophy and impaired diastolic relaxation grade 1 with an EF of 55 to 60%. Coronary artery disease Former smoker 30 pack years. Quit 1970. Hyperlipidemia Hypertension Interstitial lung disease Obstructive sleep apnea on CPAP Seasonal allergies Surgical History Surgical History History of arthroplasty of right knee History of cervical spinal surgery History of left-sided carotid endarterectomy (2013) Family History Family History Other Diabetes mellitus Social History Social History Social History: The patient is and lives in her own home in [place]. She lives in [facility] for many years and moved back to the area in 2018. She designates her son, London Browne, as her surrogate decision maker and she wishes to be a do not resuscitate though she is okay with central line and vasopressors if needed. Smoking packs per day: 2.5 Smoking cigarettes per day: 50.0 Years smoked: 15 Smoking pack-years: 37.50 Smoking status: Former smoker Tobacco type: cigarettes Second hand tobacco smoke exposure: No Smoking end date: 09/08/70 Additional smoking assessment comments: quit smoking 50 years ago Alcohol intake: never Alcohol use details: Occasionally. Substance use: never Spiritual care concerns: No Exam Const: General: cooperative, healthy appearing, comfortable and no acute distress Nutritional Appearance: well nourished Orientation/consciousness: patient oriented x3 Neck: Neck: full ROM and no meningeal signs Chest: Chest palpation & inspection: normal inspection of the chest Resp: Effort & Inspection: normal respiratory effort Auscultation: crackles Cardio: Jugular venous distension: no JVD Rate: regular rate Rhythm: regular rhythm GI: GI Palp: Yes Soft to palpation Auscultation: normal bowel sounds Skin: General skin exam: normal color Lesions: no lesions Wounds: no wounds Other: erythematous area in skin fold right abdomen with vescicles at top of area Neuro: General: patient oriented x3 Cranial nerves: Yes CN's II-XII intact bilaterally Speech: normal speech Motor exam (neuro): 5/5 motor strength present throughout Extrem: General: edema Psych: Appearance: grossly normal Mental
--- NOTE | 2022-02-26 21:16 | PC.NURSE ---
MD Bey made aware of pt new blood pressure of 68/42. stated that he would speak to MD Hanna about low blood pressure and possibly starting pressors on pt.
--- NOTE | 2022-02-26 21:50 | PC.NURSE ---
This nurse and MD Hanna received consent for central line placement for pt.
--- NOTE | 2022-02-26 22:22 | PC.NURSE ---
Per MD Hanna, to start norepinephrine at 5cg/min and this nurse may titrate as needed.
[2022-02-26] MEDS: NOREPINEPHRINE 8 MG/D5W 250 ML 8 MG/250 ML BAG 15 MG IV CONT (22:28)
[2022-02-26 22:31] LABS: SARS-CoV-2 RNA PCR Negative
--- NOTE | 2022-02-26 22:57 | PM.IMHP ---
H&P: HPI History of Present Illness Date/Time: 02/26/22 21:30 Chief Complaint: Low blood pressure, abnormal labs Narrative: 81-year-old female with a past medical history of severe aortic stenosis, chronic atrial fibrillation, moderate pulmonary hypertension Review of Systems Review of Systems: 12 systems were reviewed with pertinent positives and negatives per HPI. Except as documented in the HPI, all other systems were reviewed and are negative. [facility] Past Medical History Medical History (Updated 02/27/22 @ 03:01 by Iona Hanna DO) Aortic stenosis [id number] on echocardiogram in October 2018 with a valve area of 1.1 centimeter squared. Chronic respiratory failure with hypoxia, on home O2 therapy Congestive heart failure Echocardiogram August 2021: EF 55-60%, mildly increased left ventricular wall thickness, diastolic dysfunction indeterminate but prior echo demonstrate grade 1 diastolic dysfunction, apical hypokinesis, severe left atrial enlargement, mild right atrial enlargement, moderate to severe aortic stenosis with peak velocity 262, mean gradient 12, aortic valve area 0.8, mild aortic valve regurgitation, moderate calcification, mild mitral valve regurgitation, moderate tricuspid valve regurgitation, moderate pulmonary hypertension with RVSP of 48 Coronary artery disease Former smoker 30 pack years. Quit 1970. Hyperlipidemia Hypertension Interstitial lung disease Obstructive sleep apnea on CPAP Peripheral vascular disease Seasonal allergies Surgical History Surgical History History of arthroplasty of right knee History of cervical spinal surgery History of left-sided carotid endarterectomy (2013) Family History Family History Other Diabetes mellitus Social History Social History (Updated 02/27/22 @ 02:48 by Iona Hanna DO) Social History: The patient is and lives at [facility] in [place]. She lives in [facility] for many years and moved back to the area in 2018. She designates her son, London Browne, as her surrogate decision maker and she wishes to be a do not resuscitate though she is okay with central line and vasopressors if needed. Smoking packs per day: 1 Smoking cigarettes per day: 20.0 Years smoked: 20 Smoking pack-years: 20.00 Smoking status: Former smoker Tobacco type: cigarettes Second hand tobacco smoke exposure: No Smoking end date: 01/01/71 Additional smoking assessment comments: quit smoking 50 years ago Alcohol intake: former Alcohol use details: Occasionally. Substance use: never Spiritual care concerns: No Meds Home Medications and Allergies Home Medications Medication Instructions Recorded Confirmed Type aspirin 81 mg tablet,delayed 81 mg PO DAILY 10/29/19 02/26/22 History release (Adult Aspirin Regimen) calcium carbonate 600 mg calcium 600 mg PO DAILY 10/29/19 02/26/22 History (1,500 mg) tablet (Calcium) cholecalciferol (vitamin D3) 50 2,000 unit PO DAILY 10/29/19 02/26/22 History mcg (2,000 unit) tablet ferrous sulfate 325 mg (65 mg 325 mg PO DAILY 10/29/19 02/26/22 History iron) tablet (Feosol) cetirizine 10 mg tablet 10 mg PO DAILY PRN allergy 06/08/20 02/26/22 Rx symptoms #90 tabs benzonatate 100 mg capsule 100 mg PO TID PRN cough #60 caps 07/20/21 02/26/22 Rx fluticasone propionate 50 2 spray intranasal BID 09/03/21 02/26/22 History mcg/actuation nasal spray,suspension apixaban 5 mg tablet (Eliquis) 5 mg PO Q12HR 30 days #60 tabs 09/11/21 02/26/22 Rx midodrine 10 mg tablet 10 mg PO TID 30 days #90 tabs 09/11/21 02/26/22 Rx atorvastatin 40 mg tablet 40 mg PO DAILY #90 tabs 12/04/21 02/26/22 Rx Allergies Allergy/AdvReac Type Severity Reaction Status Date / Time Penicillins Allergy Unknown unknown Verified 07/27/21 10:57 Vital Signs Vital Signs - 24 hr
--- NOTE | 2022-02-26 23:04 | WPDPROCEDUR ---
Procedures Central Line Placement Right IJ: Central Line Date: 02/26/22 Central Line Time: 22:00 Consent: I have discussed with the patient and/or surrogate, the non-emergent placement of a central venous catheter, including its clinical necessity/indication and associated potential risks and complications. The patient and/or surrogate understand(s) and acknowledge(s) the need to proceed with central venous catheter insertion as an important element of the patient's clinical management. Time Out Performed: Yes Patient Position: trendelenburg Patient placed on monitor/pulse ox: Yes Provider Prep: mask, sterile gown, sterile gloves, Max. sterile barrier precautions, cap and hand hygiene with conventional soap/water or alcohol based hand rub Central line prep: 2% Chlorhexidine scrub and sterile full body sheet applied Local anesthesia used: lidocaine 1% Amount of anesthesia used (ml): 5 Sterile US Technique with sterile gel/sterile probe covers: Yes Central line lumen inserted: triple German: 7 Length (cm): 16 Depth of Insertion (cm): 14 Post Procedure: sutured in place, good blood return, all ports aspirated, flushed, capped, transparent dressing, antimicrobial product and aseptic technique maintained throughout procedure Post procedure x-ray: tip of catheter in good position and no pneumothorax seen Patient tolerated procedure: well Complications: none
[2022-02-26 23:21] LABS: Troponin I 0.063 ng/mL (0.000-0.034)
--- NOTE | 2022-02-26 23:45 | PC.NURSE ---
This nurse called MD Hanna due to a pt change in A&O status from A&Ox4 to Alert only to self. Md Hanna requested the MD Bey to review the pt central line placement on chest xray. Md Bey verified placement. No new orders.
[2022-02-27] VITALS (52 sets, daily range): BP systolic 44–152; BP diastolic 22–125; PULSE 4–157; RESP 17–33; TEMP 35.4–37; O2SAT 69–100
--- NOTE | 2022-02-27 | ECHO_ITS ---
Patient Info Name: Jacqui Browne Age: 81 years : 1940 Gender: Female Ht: 64 in Wt: 220 lbs BSA: 2.17 m2 HR: 112 bpm BP: 70 / 58 mmHg Heart Rhythm: Atrial Fibrillation, Tachycardia Exam Date: 02/27/2022 9:10 AM Exam Location: [facility] Patient Status: Inpatient Admit Date: 02/26/2022 Staff Ordering Physician: Yong Christine MD Veneer Stapler: Malachi Mcfarland RDCS, RT Attending Provider: Iona Hanna DO Exam Type: CA echo dop color flow w con Study Info Indications I51.9 - Heart disease, unspecified Complete two-dimensional, color flow and Doppler transthoracic echocardiogram is performed with contrast to opacify the left ventricle and to improve the deliniation of the left ventricle endocardial borders. Summary 1. Technically difficult study with limited views. 2. Left ventricular chamber dimension is normal. 3. Left ventricular systolic function is moderately reduced, estimated at 40-45%. 4. There is moderately increased left ventricular wall thickness. 5. There is moderate to severe aortic valve stenosis with a peak velocity of 276.55 cm/s, mean gradient of 14 mmHg, and aortic valve area of 0.91 cm2. 6. There is mild aortic valve regurgitation. 7. There is mild mitral valve regurgitation. 8. There is mild tricuspid valve regurgitation. 9. Moderate pulmonary hypertension, estimated pulmonary arterial systolic pressure is 51 mmHg. Left Ventricle Left ventricular chamber dimension is normal. Left ventricular systolic function is moderately reduced, estimated at 40-45%. There is moderately increased left ventricular wall thickness. The left ventricular diastolic function is indeterminate. There is no thrombus visualized in the left ventricle. Right Ventricle Right ventricular chamber dimension is normal. Right ventricular systolic function is reduced. Left Atria Left atrial chamber dimension is mildly enlarged. Right Atria Right atrial chamber dimension is mildly enlarged. Aortic Valve The aortic valve is probable trileaflet. There is moderate to severe aortic valve stenosis with a peak velocity of 276.55 cm/s, mean gradient of 14 mmHg, and aortic valve area of 0.91 cm2. There is mild aortic valve regurgitation. Pulmonic Valve The pulmonic valve is not well visualized. There is trace pulmonic regurgitation. Mitral Valve The mitral valve has thickened leaflets. There is mild mitral valve regurgitation. The mitral valve annulus is mildly calcified. Tricuspid Valve The tricuspid valve leaflets are normal. There is mild tricuspid valve regurgitation. Moderate pulmonary hypertension, estimated pulmonary arterial systolic pressure is 51 mmHg. Pericardium/Pleural The pericardium appears normal. There is trivial pericardial effusion. Inferior Vena Cava Dilated inferior vena cava with <50% collapse upon inspiration consistent with elevated right atrial pressure, 10 mmHg. Aorta The aortic root size at the sinus of Valsalva is normal. The prox ascending aorta size is normal. There is mild aortic atherosclerosis. Left Ventricular Outflow Tract Name Value Normal LVOT 2D LVOT Diameter 1.97 cm LVOT Doppler
[2022-02-27] MEDS: MIDODRINE HCL 10 MG TABLET PO ×3 (00:46→12:58)
[2022-02-27] MEDS: valACYclovir HCL 500 MG TABLET 1000 MG PO ×3 (00:46→22:12)
[2022-02-27] MEDS: SODIUM CHLORIDE 0.9% IV 1,000 ML 500 ML IV CONT (01:46)
[2022-02-27 06:06] LABS: Troponin I 0.141 ng/mL (0.000-0.034)
[2022-02-27] MEDS: CENTRAL LINE FLUSH 10 ML IV PUSH ×4 (06:30→22:13)
--- NOTE | 2022-02-27 08:39 | PM.IMPN ---
Progress Note: A&P Assessment and Plan (1) Chronic respiratory failure with hypoxia, on home O2 therapy: Code(s): J96.11 - Chronic respiratory failure with hypoxia; Z99.81 - Dependence on supplemental oxygen Status: Acute Assessment and Plan: ILD on oxygen with acute worsening on CXR concern for pulmonary edema versus pneumonia. Due to sepsis would continue treatment for pneumonia at this time with azithromycin and ceftriaxone. (2) Herpes zoster dermatitis: Code(s): B02.8 - Zoster with other complications; L30.8 - Other specified dermatitis Status: Acute Assessment and Plan: Continue valacyclovir. (3) Shock: Code(s): R57.9 - Shock, unspecified Status: Acute Assessment and Plan: On pressors. Management per ICU. (4) Aortic stenosis: Qualifiers: Cardiac valve disease etiology: nonrheumatic Qualified Code(s): I35.0 - Nonrheumatic aortic (valve) stenosis Code(s): I35.0 - Nonrheumatic aortic (valve) stenosis Status: Acute Assessment and Plan: Echo pending. (5) Atrial fibrillation: Qualifiers: Atrial fibrillation type: longstanding persistent Qualified Code(s): I48.11 - Longstanding persistent atrial fibrillation Code(s): I48.91 - Unspecified atrial fibrillation Status: Acute Assessment and Plan: [place]. May need additional medication to help rate control. Takes apixaban at home. Continue. (6) NSTEMI (non-ST elevated myocardial infarction): Code(s): I21.4 - Non-ST elevation (NSTEMI) myocardial infarction Status: Acute Assessment and Plan: Appreciate Cardiology recommendations. (7) Sepsis: Code(s): A41.9 - Sepsis, unspecified organism Status: Acute Assessment and Plan: Continue treatment of pneumonia. Subjective Date/time seen: 02/27/22 08:39 Patient reports her BP runs low at home and that she takes medication to help maintian her BP. Does not know why she was brought to the emergency department. Denies having any pain. Review of Systems Psychiatric: Psychiatric: Denies confusion Exam Narrative: GENERAL: NAD, cooperative HEENT: Normocephalic, atraumatic, anicteric, nares clear, oropharynx moist and clear, dentition ok NECK: Supple CV: TREY RESP: CTAB, Normal work of breathing. EXTREMITIES: Warm and well perfused, no clubbing, cyanosis, or edema. SKIN: warm, dry and intact. NEURO: CN 2-12 grossly intact. Objective Data Vital Signs Vital Signs: Vital Signs - 24 hr 02/26/22 16:22 02/26/22 17:15 02/26/22 17:45 Temperature 98.4 F Pulse Rate 80 100 106 H Respiratory Rate 14 18 20 Blood Pressure 88/61 L 76/60 L 72/60 L Pulse Oximetry 98 98 98 Oxygen Delivery Nasal Cannula Oxygen Flow Rate 6 02/26/22 18:26 02/26/22 18:56 02/26/22 19:08 Temperature Pulse Rate 80 110 H 93 Respiratory Rate 12 12 18 Blood Pressure 92/67 L 76/58 L 94/72 L Pulse Oximetry 98 98 97 Oxygen Delivery Oxygen Flow Rate 02/26/22 19:38 02/26/22 20:33 02/26/22 21:10 Temperature Pulse Rate 102 H 102 H Respiratory Rate 20 22 H Blood Pressure 77/48 L 76/55 L 68/42 L Pulse Oximetry 100 99 Oxygen Delivery Oxygen Flow Rate 02/26/22 21:34 02/26/22 22:14 02/26/22 22:28 Temperature Pulse Rate 107 H 99 Respiratory Rate 19 Blood Pressure 60/40 L 73/52 L 68/59 L Pulse Oximetry 100 Oxygen Delivery Oxygen Flow Rate 02/26/22 22:35 02/26/22 22:49 02/26/22 22:50 Temperature Pulse Rate 115 H 107 H 111 H Respiratory Rate 19 22 H Blood Pressure 84/66 L 87/54 L 87/49 L Pulse Oximetry 100 95 Oxygen Delivery Oxygen Flow Rate 02/26/22 23:19 02/27/22 00:05 02/27/22 00:04 Temperature Pulse Rate 111 H 110 H 110 H Respiratory Rate 20 22 H Blood Pressure 94/70 L 86/42 L 84/68 L Pulse Oximetry 98 99 Oxygen Delivery Oxygen Flow Rate 02/27/22 00:32 02/27/22 00:32
[2022-02-27] MEDS: PERFLUTREN LIPID MICROSPHERES 1.5 ML VIAL DILUTED TO 10 ML TOTAL VOLUME IV PUSH (09:19)
--- NOTE | 2022-02-27 09:19 | IVDEFINITY ---
Prior to administration of IV Definity the patient was educated on the risks and benefits of the imaging enhancing agent including potential adverse side effects. The patient verbalized understanding. Allergies were verified. No exclusion criteria were identified and at least one of the following inclusion criteria were met: 1) physician request, 2) patient technically difficult to image (per the [place] [employer] guidelines of two or more segments not discernable within the apical view), or 3) questionable left ventricular function. ?
[2022-02-27 09:36] LABS: Procalcitonin 0.1 ng/mL
--- NOTE | 2022-02-27 09:46 | PM.CNCAR ---
Assessment and Plan Assessment and plan (1) Septic shock: Code(s): A41.9 - Sepsis, unspecified organism; R65.21 - Severe sepsis with septic shock Status: Acute Assessment and Plan: she has received IV fluid resuscitation and is currently on norepinephrine. She has a history of chronic orthostatic hypotension on midodrine as an outpatient. Continue supportive care, IV antibiotics, possible stress dose steroids defer to primary service and Critical Care. Cultures pending. Urinalysis unremarkable. Overall, patient remains critically ill at this time. Prognosis is guarded. (2) Elevated troponin: Code(s): R77.8 - Other specified abnormalities of plasma proteins Status: Acute Assessment and Plan: Most likely type 2 infarction not secondary to acute coronary syndrome and/or plaque rupture with mild troponin elevation most likely secondary to demand ischemia in setting of hypotension and chronic hypoxic respiratory failure and atrial fibrillation with RVR. No anginal symptoms or new acute ischemic EKG changes noted. 2D echocardiogram to assess LV function, wall motion abnormalities and valve pathology. (3) Atrial fibrillation: Qualifiers: Atrial fibrillation type: longstanding persistent Qualified Code(s): I48.11 - Longstanding persistent atrial fibrillation Code(s): I48.91 - Unspecified atrial fibrillation Status: Acute Assessment and Plan: Persistent, intermittent RVR secondary to hypertension. Cautious IV beta-nia only as needed. Patient has not required AV radha blocking agents as an outpatient due to relative heart rate control and a concern for degree of underlying conduction system disease. continue Eliquis 5 mg twice daily. Monitor for bleeding. Follow H&H. (4) Chronic respiratory failure with hypoxia, on home O2 therapy: Code(s): J96.11 - Chronic respiratory failure with hypoxia; Z99.81 - Dependence on supplemental oxygen Status: Acute Assessment and Plan: As above, per hospitalist Service and Critical Care. (5) Aortic stenosis: Qualifiers: Cardiac valve disease etiology: nonrheumatic Qualified Code(s): I35.0 - Nonrheumatic aortic (valve) stenosis Code(s): I35.0 - Nonrheumatic aortic (valve) stenosis Status: Acute Assessment and Plan: History of moderate to severe aortic stenosis. 2D echocardiogram pending. Unless significant progression is noted unlikely Related to patient's admission yet taken complicated hemodynamic status particularly of severely hypotensive and or poorly controlled ventricular response. (6) Coronary artery disease: Code(s): I25.10 - Atherosclerotic heart disease of [place] coronary artery without angina pectoris Status: Acute Assessment and Plan: History of nonobstructive CAD on left heart catheterization 2012. No indication for invasive angiography at this time and patient remains DNR at this time. She is not reporting anginal symptoms Despite mild troponin elevation. (7) Obstructive sleep apnea: Code(s): G47.33 - Obstructive sleep apnea (adult) (pediatric) Status: Acute Assessment and Plan: continue BiPAP support. History of Present Illness History of Present Illness Consult date/time: Date of service: 02/27/22 09:46 Cardiology consultation at the request of Dr. Hanna for opinion regarding elevated troponin. Requesting physician: Iona Hanna, DO Consult reason: Other (elevated troponin) Reason For Visit: hypotension Narrative: Patient is an 81-year-old female with a past medical history significant for nonobstructive CAD, moderate to severe aortic stenosis, permanent atrial fibrillation, history of pulmonary hypertension, interstitial lung disease with chronic hypoxic respiratory failure on supplemental oxygen, obstructive sleep apnea on BiPAP, chronic orthostatic hypotension followed by Dr. Teixeira as an outpa
[2022-02-27] MEDS: FERROUS SULFATE 324 MG TABLET PO (10:01)
[2022-02-27] MEDS: CALCIUM CARBONATE (OSCAL) 500 MG TABLET PO (10:02)
[2022-02-27] MEDS: CHOLECALCIFEROL 1,000 UNITS TABLET 2000 UNITS PO (10:02)
[2022-02-27] MEDS: ATORVASTATIN 40 MG TABLET PO (10:02)
[2022-02-27] MEDS: APIXABAN 5 MG TABLET PO ×2 (10:02→22:12)
[2022-02-27] MEDS: ASPIRIN 81 MG ENTERIC TABLET PO (10:02)
[2022-02-27] MEDS: TOLNAFTATE 1% POWDER 45 GM BTL 1 APPLIC TOPICAL ×2 (10:03→22:13)
[2022-02-27] MEDS: FLUTICASONE PROPIONATE 0.05% NA SPR 16 GM BTL (*BKC) 2 SPRAY NASAL (10:03)
[2022-02-27 10:57] LABS: Hemoglobin 14.4 g/dL (12.0-15.0); Mean Corpuscular HGB Conc 31.3 g/dl (32-36); Mean Corpuscular Hemoglobin 30.9 pg (26-34); Mean Corpuscular Volume 98.7 fl (80-100); Mean Platelet Volume 10.3 fl (7.4-10.4); Platelet Count Result 287 k/mm3 (150-375); Red Blood Count 4.66 M/mm3 (4.2-5.4); Red Cell Distribution Width 15.7 % (11.5-14.5)
[2022-02-27 11:10] LABS: Anion Gap 4 mmol/L (8-16); Blood Urea Nitrogen 28 mg/dL (7-17); Calcium 8.9 mg/dL (8.4-10.2); Carbon Dioxide 30 mmol/L (22-30); Chloride 106 mmol/L (98-107); Estimated CRCL calculation 45 ml/min; Estimated Glomerular Filt Rate 53; Glucose 227 mg/dL (65-110); Magnesium 1.9 mg/dL (1.6-2.3); Potassium 4.1 mmol/L (3.4-5.0); Sodium 140 mmol/L (137-145)
[2022-02-27] MEDS: NOREPINEPHRINE 8 MG/D5W 250 ML 8 MG/250 ML BAG 26.25 MG IV CONT (11:10)
[2022-02-27] MEDS: ALBUMIN HUMAN 25% 25 GM/100 ML 100 ML IVPB ×2 (11:53→17:15)
[2022-02-27] MEDS: METOPROLOL TARTRATE INJ 5 MG/5 ML VIAL IV PUSH (12:10)
--- NOTE | 2022-02-27 12:24 | WPDCNINT ---
Assessment and Plan Assessment and plan (1) Chronic respiratory failure with hypoxia, on home O2 therapy: Code(s): J96.11 - Chronic respiratory failure with hypoxia; Z99.81 - Dependence on supplemental oxygen Status: Acute Assessment and Plan: Chest X suggest pulmonary edema Hold Lasix at this time due to shock Cautious IV fluids (2) Herpes zoster dermatitis: Code(s): B02.8 - Zoster with other complications; L30.8 - Other specified dermatitis Status: Acute Assessment and Plan: On acyclovir (3) Shock: Code(s): R57.9 - Shock, unspecified Status: Acute Assessment and Plan: Likely multifactorial secondary to aortic stenosis, heart failure and possible sepsis She has a low blood pressure at baseline and has history of orthostatic hypotension and is on midodrine Her lactic acid level was normal Currently on Levophed. Will try to target systolic blood pressure of 90 and map of 60 Continue midodrine Check cortisol level and add hydrocortisone Blood culture sent and pending Continue Rocephin azithromycin for community-acquired pneumonia (4) Aortic stenosis: Qualifiers: Cardiac valve disease etiology: nonrheumatic Qualified Code(s): I35.0 - Nonrheumatic aortic (valve) stenosis Code(s): I35.0 - Nonrheumatic aortic (valve) stenosis Status: Acute Assessment and Plan: Patient has moderate to severe aortic stenosis Repeat echo is ordered (5) Atrial fibrillation: Qualifiers: Atrial fibrillation type: longstanding persistent Qualified Code(s): I48.11 - Longstanding persistent atrial fibrillation Code(s): I48.91 - Unspecified atrial fibrillation Status: Acute Assessment and Plan: Currently rate controlled P.r.n. Lopressor Continue Eliquis (6) Sepsis: Code(s): A41.9 - Sepsis, unspecified organism Status: Acute Assessment and Plan: Although patient's hypotension is multifactorial she does meet criteria for sepsis Chest X shows infiltrate which is likely pulmonary edema patient does have elevated WBC Blood culture sent and pending Empiric antibiotics Rocephin and azithromycin for community-acquired pneumonia Check urine Legionella pneumo coccal antigen and procalcitonin (7) NSTEMI (non-ST elevated myocardial infarction): Code(s): I21.4 - Non-ST elevation (NSTEMI) myocardial infarction Status: Acute Assessment and Plan: Continue aspirin Eliquis Cardiology consulted Echo pending Additional Plan DVT prophylaxis -Eliquis Stress ulcer prophylaxis - Nutrition - Tube Feeds Code Status -patient requests to be DNR and does not want CPR or DC cardiac shock in the event of cardiac arrest is agreeable to intubation for respiratory failure for a brief period of time if needed Total Critical Care Time - 30 minutes Due to a high probability of clinically significant, life threatening deterioration, the patient required my highest level of preparedness to intervene emergently and I personally spent this critical care time directly and personally managing the patient. This critical care time included obtaining a history; examining the patient; pulse oximetry; ordering and review of studies; arranging urgent treatment with development of a management plan; evaluation of patient's response to treatment; frequent reassessment; and discussions with other providers. It was exclusive of separately billable procedures and treating other patients and teaching time. Please see Assessment and Plan section and the rest of the note for further information on patient assessment and treatment Counselor Supervisor Consult Note Consult date: 02/27/22 Reason for consult: Shock HPI: Jacqui Oropezaer is a 81 year old female with past medical history moderate to severe aortic stenosis, chronic atrial fibrillation, moderate pulmonary hypertension, interstitial lung disease with chronic hypoxic respiratory failure who is on ox
[2022-02-27] MEDS: ALBUMIN HUMAN 5% 25 GM/500 ML BTL IV CONT ×2 (12:58→21:19)
[2022-02-27] MEDS: HYDROCORTISONE SODIUM SUCCINATE 100 MG/2 ML VIAL IV PUSH ×2 (14:18→22:12)
[2022-02-27] MEDS: VASOPRESSIN INJ 100 UNITS in DEXTROSE 5% 95 ML IV CONT (15:35)
[2022-02-27] MEDS: LORazepam INJ (*CRX) 2 MG/ML VIAL (16:58)
[2022-02-27] MEDS: NOREPINEPHRINE 8 MG/D5W 250 ML 8 MG/250 ML BAG 37.5 MG IV CONT (17:13)
[2022-02-27 17:29] LABS: Alveolar/Arterial O2 Gradient 561.3 mmHg; Base Excess ABG -4.5 mEq/l (+/-2.0); Fractional Inspired Oxygen 100 %; Oxygen Content ABG 20.5 %vol (16.0-22.0); Oxygen Saturation ABG 91.9 % (95.0-100.0); Oxyhemoglobin 92.7 % THb (90.0-100.0); PO2 FiO2 Ratio Arterial Blood 0.79 %; Total Hemoglobin 15.7 g/dL (12.0-18.0)
[2022-02-27 17:30] LABS: pH ABG 7.171 (7.350-7.450)
[2022-02-27 17:31] LABS: Device BIPAP; Inspiratory Pressure 12 cmH2O; Modified Allen's Test Pass; PCO2 ABG 72.7 mmHg (35.0-45.0); Site Drawn LEFT RADIAL
[2022-02-27 17:32] LABS: Expiratory Pressure 6 cmH2O
[2022-02-27] MEDS: SODIUM BICARBONATE 8.4% 50 MEQ/50 ML SYRINGE 100 MEQ IV PUSH ×2 (18:35→22:11)
[2022-02-27] MEDS: SODIUM CHLORIDE 0.9% IV 1,000 ML 999 ML IV CONT (19:40)
[2022-02-27] MEDS: SODIUM BICARBONATE 8.4% 50 MEQ/50 ML SYRINGE (20:00)
--- NOTE | 2022-02-27 20:33 | WPDPROCEDUR ---
Procedures Intubation Intubation Date: 02/27/22 Intubation Time: 19:42 Sedative: etomidate Mg given: 20 Paralytic: succinylcholine Mg given: 50 Laryngoscope: fiber optic video scope Assist device used: fiber optic device ET tube size: 7.5 Tube secured depth (cm): 25 Tube secured location: teeth Tube placement confirmation: visualized tube passing through cords, equal breath sounds bilaterally and confirmation by capnometry Patient tolerated procedure: well Intubation complications: none
[2022-02-27] MEDS: AMIODARONE 150 MG/D5W 100 ML 150 MG/100 ML BAG 600 MG IV CONT (20:42)
[2022-02-27 20:44] LABS: Alveolar/Arterial O2 Gradient 589.5 mmHg; Base Excess ABG -2.1 mEq/l (+/-2.0); Carboxyhemoglobin 0.2 % THb (0-2.0); Fractional Inspired Oxygen 100 %; HCO3 ABG 26.6 mEq/l (22.0-26.0); Methemoglobin ABG 0.4 %THb (0-1.5); Oxygen Content ABG 19.1 %vol (16.0-22.0); Oxyhemoglobin 89.5 % THb (90.0-100.0); PO2 ABG 61.5 mmHg (80.0-100.0); PO2 FiO2 Ratio Arterial Blood 0.62 %; Reduced Hemoglobin 9.9 %THb (0-5.0); Total Hemoglobin 15.2 g/dL (12.0-18.0)
[2022-02-27 20:46] LABS: Device VENTILATOR; Modified Allen's Test Unable to perform; Oxygen Saturation ABG 87.1 % (95.0-100.0); Site Drawn RIGHT RADIAL
[2022-02-27 20:47] LABS: Arterial Blood Gas PEEP 10 cmH2O; Arterial Blood Gas Tidal Volume 350 ml; Arterial Blood Gas Vent Mode CMV; Arterial Blood Gas Ventilator rate 24 /MIN
[2022-02-27] MEDS: AMIODARONE 360 MG/D5W 200 ML 360 MG/200 ML BAG 33.33 MG IV CONT (20:53)
--- NOTE | 2022-02-27 20:54 | P.PNCROSS_ITS ---
Event Note Event Note Event Note: 02/27/2022 at 9:20 p.m. I admitted the patient last night the patient wanted to be a DNR. Evidently during the day the patient stated she wanted to be intubated. The patient's family is at bedside and nurse practitioner had a long discussion with the patient's family. They still do not want the patient to be intubated for long- term but they are willing for short-term intubation until family members can arrive. The patient was subsequently intubated. Post intubation patient's hypotension worsened despite Levophed being at 50 vasopressin maxed out and receiving a fluid bolus. Morro-Synephrine was ordered and was maxed out. The patient's blood pressures were still only reading in the 50s systolic. Her pulse ox was not picking up due to poor perfusion. Stat ABG was performed which demonstrated respiratory acidosis with PO2 of 61 correlating with oxygen saturations of around 88%. Software Sales Representative was contacted and wanted the patient to have a art line placed. Nurse practitioner called the patient's family and discussed the risks and benefits of the procedure and the family decided that they wanted to have the patient be made comfortable. They understand that the patient may prior to the arrival of her other family members. They would prefer that the patient be made comfortable and do not want any more invasive procedures. The patient will remain DNR and if her heart were to stop we would not perform cardiopulmonary resuscitation. I was at bedside and supervised the nurse practitioner intubation of the patient. 30 minutes was spent in critical care activities in exclusion of procedures. Due to a high probability of clinically significant, life threatening deterioration, the patient required my highest level of preparedness to intervene emergently and I personally spent this critical care time directly and personally managing the patient. This critical care time included obtaining a history; examining the patient; pulse oximetry; ordering and review of studies; arranging urgent treatment with development of a management plan; evaluation of patient's response to treatment; frequent reassessment; and discussions with other providers. It was exclusive of separately billable procedures and treating other patients and teaching time. Please see Assessment and Plan section and the rest of the note for further information on patient assessment and treatment.
[2022-02-27] MEDS: FENTANYL 2,500MCG/NS250ML(*CRX 2,500 MCG/250 ML BAG IV CONT (21:12)
[2022-02-27] MEDS: NOREPINEPHRINE 8 MG/D5W 250 ML 8 MG/250 ML BAG 93.75 MG IV CONT (21:17)
--- NOTE | 2022-02-27 22:00 | PC.NURSE ---
Addendum entered by Miladis Diaz RN 02/28/22 06:08: Discussed the possibility of an arterial line with pt's son, London. Family declined to do any invasive procedures at this time. Dr. Nanci schmidt. Original Note: Pt blood pressure worsening despite use of multiple pressers. Son and [id number] called to pt's bedside. Pt's son, London, states that above quantity of time, he wishes for his mother to be comfortable. London does not wish to withdraw all care at this time. Per his wishes, sedation started to increase pt comfort. Staff explained that the addition of sedation could expedite the dying process. London verbalized understanding and again states that he wishes for his mother to be comfortable over having more time.
[2022-02-27] MEDS: MIDAZOLAM 100MG/NS 100ML(*CRX) 100 MG/100 ML BAG IV CONT (22:26)
[2022-02-27] MEDS: MINERAL OIL/WHITE PETROLATUM OINTMENT 1 APPLIC EACH EYE (22:28)
[2022-02-27] MEDS: NOREPINEPHRINE BITARTRATE 16 MG in DEXTROSE 5% IN WATER 250 ML 49.88 ML IV CONT (23:58)
[2022-02-28] VITALS (21 sets, daily range): BP systolic 76–116; BP diastolic 56–104; PULSE 101–127; RESP 24; TEMP 36.8–37.2; O2SAT 90–93; BMI 37.3
[2022-02-28 00:14] LABS: Glucose Point of Care 268 mg/dl (65-105)
[2022-02-28] MEDS: AMIODARONE 360 MG/D5W 200 ML 360 MG/200 ML BAG 16.67 MG IV CONT (02:37)
[2022-02-28 05:10] LABS: Alveolar/Arterial O2 Gradient 606.3 mmHg; Base Excess ABG -0.9 mEq/l (+/-2.0); Carboxyhemoglobin 1.1 % THb (0-2.0); Fractional Inspired Oxygen 100 %; HCO3 ABG 24.2 mEq/l (22.0-26.0); Methemoglobin ABG 0.3 %THb (0-1.5); Oxygen Content ABG 21.3 %vol (16.0-22.0); Oxygen Saturation ABG 92.3 % (95.0-100.0); Oxyhemoglobin 91.6 % THb (90.0-100.0); PCO2 ABG 41.9 mmHg (35.0-45.0); PO2 ABG 64.8 mmHg (80.0-100.0); PO2 FiO2 Ratio Arterial Blood 0.65 %; Total Hemoglobin 16.6 g/dL (12.0-18.0)
[2022-02-28 05:11] LABS: Arterial Blood Gas PEEP 10 cmH2O; Arterial Blood Gas Tidal Volume 350 ml; Arterial Blood Gas Vent Mode CMV; Arterial Blood Gas Ventilator rate 24 /MIN; Device VENTILATOR; Modified Allen's Test Unable to perform; Site Drawn RIGHT RADIAL
[2022-02-28] MEDS: ALBUMIN HUMAN 25% 25 GM/100 ML 100 ML IVPB ×2 (05:16→08:54)
[2022-02-28] MEDS: HYDROCORTISONE SODIUM SUCCINATE 100 MG/2 ML VIAL IV PUSH (05:18)
[2022-02-28] MEDS: CENTRAL LINE FLUSH 10 ML IV PUSH (05:18)
[2022-02-28] MEDS: NOREPINEPHRINE BITARTRATE 16 MG in DEXTROSE 5% IN WATER 250 ML 46.88 ML IV CONT (05:22)
[2022-02-28 05:39] LABS: Hematocrit 49.1 % (37.0-47.0); Hemoglobin 15.5 g/dL (12.0-15.0); Mean Corpuscular HGB Conc 31.6 g/dl (32-36); Mean Corpuscular Hemoglobin 30.7 pg (26-34); Mean Corpuscular Volume 97.2 fl (80-100); Mean Platelet Volume 10.3 fl (7.4-10.4); Platelet Count Result 251 k/mm3 (150-375); Red Blood Count 5.05 M/mm3 (4.2-5.4); Red Cell Distribution Width 15.7 % (11.5-14.5); White Blood Count 20.4 K/mm3 (4.5-10.0)
[2022-02-28 05:57] LABS: Alanine Aminotransferase 703 U/L (6-35); Albumin Level 4.2 g/dL (3.5-5.1); Alkaline Phosphatase 45 U/L (38-126); Anion Gap 11 mmol/L (8-16); Aspartate Amino Transferase 744 U/L (14-36); Bilirubin,Total 1.6 mg/dL (0.2-1.3); Blood Urea Nitrogen 33 mg/dL (7-17); Calcium 9.6 mg/dL (8.4-10.2); Carbon Dioxide 27 mmol/L (22-30); Chloride 98 mmol/L (98-107); Estimated CRCL calculation 30 ml/min; Estimated Glomerular Filt Rate 33; Glucose 345 mg/dL (65-110); Magnesium 1.8 mg/dL (1.6-2.3); Phosphorus 3.2 mg/dL (2.5-4.5); Potassium 4.5 mmol/L (3.4-5.0); Sodium 136 mmol/L (137-145)
--- NOTE | 2022-02-28 08:44 | PM.IMPN ---
Progress Note: A&P Assessment and Plan (1) Chronic respiratory failure with hypoxia, on home O2 therapy: Code(s): J96.11 - Chronic respiratory failure with hypoxia; Z99.81 - Dependence on supplemental oxygen Status: Acute Assessment and Plan: Overnight patient intubated and sedated. (2) Herpes zoster dermatitis: Code(s): B02.8 - Zoster with other complications; L30.8 - Other specified dermatitis Status: Acute Assessment and Plan: Continue valacyclovir. (3) Shock: Code(s): R57.9 - Shock, unspecified Status: Acute Assessment and Plan: On pressors. Management per ICU. (4) Aortic stenosis: Qualifiers: Cardiac valve disease etiology: nonrheumatic Qualified Code(s): I35.0 - Nonrheumatic aortic (valve) stenosis Code(s): I35.0 - Nonrheumatic aortic (valve) stenosis Status: Acute Assessment and Plan: Echo w/ EF 40-45% with severe aortic stenosis. (5) Atrial fibrillation: Qualifiers: Atrial fibrillation type: longstanding persistent Qualified Code(s): I48.11 - Longstanding persistent atrial fibrillation Code(s): I48.91 - Unspecified atrial fibrillation Status: Acute Assessment and Plan: Tachycardia. (6) NSTEMI (non-ST elevated myocardial infarction): Code(s): I21.4 - Non-ST elevation (NSTEMI) myocardial infarction Status: Acute Assessment and Plan: Family has elected to withdraw care. (7) Sepsis: Code(s): A41.9 - Sepsis, unspecified organism Status: Acute Assessment and Plan: Family has elected to withdraw care. Subjective Date/time seen: 02/28/22 16:44 Patient intubated and sedated. Review of Systems Review of Systems: ROS unobtainable: Yes unobtainable due to endotracheal tube and unobtainable due to medical condition Exam Narrative: GENERAL: intubated sedated HEENT: Normocephalic, atraumatic NECK: Supple CV: tachycardia RESP: Intubated - nonlabored respirations SKIN: dry and intact. NEURO: Intubated and sedated. Objective Data Vital Signs Vital Signs: Vital Signs - 24 hr 02/27/22 17:13 02/27/22 17:13 02/27/22 18:00 Temperature Pulse Rate 110 H 110 H 121 H Respiratory Rate Blood Pressure 87/51 L 87/51 L Pulse Oximetry Oxygen Delivery Fraction of Inspired Oxygen 02/27/22 18:00 02/27/22 18:00 02/27/22 18:00 Temperature Pulse Rate 124 H 124 H 124 H Respiratory Rate 20 Blood Pressure 115/73 93/67 L 93/67 L Pulse Oximetry 100 Oxygen Delivery Fraction of Inspired Oxygen 02/27/22 19:26 02/27/22 20:24 02/27/22 20:20 Temperature Pulse Rate 127 H 134 H Respiratory Rate Blood Pressure 87/76 L 44/30 L Pulse Oximetry 88 L Oxygen Delivery Mechanical Ventilation Fraction of Inspired Oxygen 100 02/27/22 20:42 02/27/22 20:00 02/27/22 20:53 Temperature Pulse Rate 135 H 120 H Respiratory Rate Blood Pressure 74/55 L 60/26 L Pulse Oximetry Oxygen Delivery Fraction of Inspired Oxygen 100 02/27/22 21:12 02/27/22 21:17 02/27/22 19:01 Temperature Pulse Rate 125 H 125 H 117 H Respiratory Rate 25 H 21 H Blood Pressure 60/26 L 75/66 L Pulse Oximetry Oxygen Delivery Fraction of Inspired Oxygen 02/27/22 19:16 02/27/22 19:31 02/27/22 19:36 Temperature Pulse Rate 119 H 117 H 105 H Respiratory Rate 22 H 21 H 29 H Blood Pressure 87/76 L 52/22 L 68/45 L Pulse Oximetry 85 L Oxygen Delivery Fraction of Inspired Oxygen 02/27/22 19:42 02/27/22 19:49 02/27/22 19:50 Temperature Pulse Rate 114 H 126 H 123 H Respiratory Rate 31 H 24 H 24 H Blood Pressure 66/45 L 67/45 L 73/51 L Pulse Oximetry Oxygen Delivery Fraction of Inspired Oxygen 02/27/22 19:57 02/27/22 20:01 02/27/22 20:05 Temperature Pulse Rate 157 H 139 H 148 H Respiratory Rate 24 H 21 H 24 H Blood Pressure 100/87 68/58 L 75/57 L Pu
[2022-02-28] MEDS: ATORVASTATIN 40 MG TABLET PO (08:55)
[2022-02-28] MEDS: MIDODRINE HCL 10 MG TABLET PO (08:55)
[2022-02-28] MEDS: APIXABAN 5 MG TABLET PO (08:55)
[2022-02-28] MEDS: valACYclovir HCL 500 MG TABLET 1000 MG PO (08:55)
[2022-02-28] MEDS: ASPIRIN 81 MG ENTERIC TABLET PO (08:55)
[2022-02-28] MEDS: MINERAL OIL/WHITE PETROLATUM OINTMENT 1 APPLIC EACH EYE (08:56)
[2022-02-28] MEDS: TOLNAFTATE 1% POWDER 45 GM BTL 1 APPLIC TOPICAL (08:56)
[2022-02-28] MEDS: INSULIN ASPART (*BKC) 100 UNITS/ML SUB-Q (08:59)
[2022-02-28] MEDS: MAGNESIUM SULF 2 GM/WATER 50ML 2 GM/50 ML BAG IVPB (10:34)
--- NOTE | 2022-02-28 11:00 | WPDINTPN ---
Progress Note: A&P Assessment and Plan (1) Chronic respiratory failure with hypoxia, on home O2 therapy: Code(s): J96.11 - Chronic respiratory failure with hypoxia; Z99.81 - Dependence on supplemental oxygen Status: Acute Assessment and Plan: Chest shows pulmonary edema Not a candidate for Lasix due to severe shock Not on any IV fluids (2) Herpes zoster dermatitis: Code(s): B02.8 - Zoster with other complications; L30.8 - Other specified dermatitis Status: Acute Assessment and Plan: On acyclovir with dose was renally adjusted (3) Shock: Code(s): R57.9 - Shock, unspecified Status: Acute Assessment and Plan: Likely multifactorial secondary to aortic stenosis, heart failure and possible sepsis Continues to be on high dose of 3 vasopressors Levophed vasopressin and Morro-Synephrine IV bicarb pushes were given for acidosis On hydrocortisone and midodrine Blood culture sent and pending On Rocephin azithromycin for community-acquired pneumonia (4) Aortic stenosis: Qualifiers: Cardiac valve disease etiology: nonrheumatic Qualified Code(s): I35.0 - Nonrheumatic aortic (valve) stenosis Code(s): I35.0 - Nonrheumatic aortic (valve) stenosis Status: Acute Assessment and Plan: Patient has moderate to severe aortic stenosis Repeat echo reviewed (5) Atrial fibrillation: Qualifiers: Atrial fibrillation type: longstanding persistent Qualified Code(s): I48.11 - Longstanding persistent atrial fibrillation Code(s): I48.91 - Unspecified atrial fibrillation Status: Acute Assessment and Plan: On amiodarone infusion and Eliquis (6) Sepsis: Code(s): A41.9 - Sepsis, unspecified organism Status: Acute Assessment and Plan: Although patient's hypotension is multifactorial she does meet criteria for sepsis Chest X shows infiltrate which is likely pulmonary edema patient does have elevated WBC Blood culture sent and pending On Empiric antibiotics Rocephin and azithromycin for community-acquired pneumonia Pending urine Legionella pneumo coccal antigen and procalcitonin (7) NSTEMI (non-ST elevated myocardial infarction): Code(s): I21.4 - Non-ST elevation (NSTEMI) myocardial infarction Status: Acute Assessment and Plan: On aspirin Eliquis Cardiology following Echo shows 6 moderate to severe aortic stenosis with heart failure (8) Acute respiratory failure: Code(s): J96.00 - Acute respiratory failure, unspecified whether with hypoxia or hypercapnia Status: Acute Assessment and Plan: Chest x-ray ABG and vent settings reviewed Additional Plan DVT prophylaxis -on Eliquis Yesterday morning when I spoke to patient she requested to be DNR and told me that she does not want CPR or DC cardiac shock in the event of cardiac arrest but was agreeable to intubation for respiratory failure for a brief period of time if needed. I spoke to her about a aortic stenosis and she told me that she does not want any interventions or surgeries. She stated that if she gets better with medications then it is okay otherwise she does not want anything further aggressive. She told she has spoken to her son in detail and he is aware of her wishes. Yesterday when her respiratory status worsened. Patient's son was reluctant for her to go on a ventilator patient at that was in respiratory distress and was not able to keep BiPAP on and agreed for mechanical ventilation. Despite mechanical ventilation her prognosis does not change and she continues to have severe aortic stenosis which she did not want any definitive treatment for, congestive heart failure, pulmonary edema, LEROY and severe shock requiring 3 vasopressor. I spoke to patient's son and [id number] at bedside in detail and updated them with patient's current status and her current condition. Chaplain Sanchez was present during the discussion and family meet
[2022-02-28] MEDS: LORazepam INJ (*CRX) 2 MG/ML VIAL IV PUSH (11:22)
--- NOTE | 2022-02-28 11:22 | PC.NURSE ---
FAMILY AT BEDSIDE. DECISION MADE TO WITHDRAW TEATMENT. PATIENT EXTUBATED AND ALL PRESSORS PAUSED. MEDICATIONS GIVEN FOR COMFORT.
--- NOTE | 2022-02-28 17:16 | PM.DDS ---
Discharge Summary Date and Time Date of : 02/28/22 Time of : 11:27 Provider Pronounced By: Wanda Charles RN and Tri Block RN Probable Cause of Probable Cause of : Cardiogenic shock, septic shock Summary Hospital Course: 81-year-old female with past medical history of severe aortic stenosis, chronic atrial fibrillation, moderate pulmonary hypertension, interstitial lung disease with chronic hypoxic respiratory failure and obstructive sleep apnea on BiPAP who presented to the ER from group home facility due to hypotension and abnormal labs.? The patient and family do not know what the patient's abnormal labs were.? The patient does have history of chronic orthostatic hypotension and is on midodrine.? However when the patient arrived to the ER her blood pressures were low when the 70s.? Despite 1.5 L of bolus the patient's blood pressures were even lower down to the mid 50s systolic.? The patient's family does not know what the patient's baseline blood pressures usually are.? On review of prior hospitalizations the patient's blood pressures seem to run in the mid 80 systolic up to the 120 systolic range.? Patient did have some increasing heart rate during her ER visit.? Her labs did not demonstrate any marked abnormalities.? The patient did not know exactly why she was being sent to the ER.? She was alert oriented to person, place year and the name of the current president at the time of my evaluation.? She thought that the month was January.? The patient did consent to a central line.? However, shortly after my evaluation the patient's mental status was waxing and waning and at times could not remember where she was at or why she was in the hospital.? She could not remember why had placed a central line as I was getting ready to leave her room.? The patient is only complaint at the time my evaluation with some pain in her right groin.? At that time a rash was noted with some pustules and surrounding erythematous base.? The patient has had very little urine output.? She denies having any dysuria.? She denies nausea or vomiting.? She did not have any abdominal pain on exam.? Her troponin was slightly elevated in the ER but she denied having any chest pain.? Troponin profile is since been flat. Patient required support with norepinephrine, vasopressin and phenylephrine. Ceftriaxone and azithromycin were given for pneumonia. Despite treatment the patient did not improve. The patient was a DNR but family and patient requested [employer] to keep the patient alive until famiy could arrive. The patient was intubated around 194 on 02/27/22. The patient at 1127 on 02/28/22. Additional Data Confirmation of as documented by pronouncing clinician: Pupillary Reflex, Palpable Pulses, Response to Stimuli, Heart Tones and Breath Sounds Name of Provider Notified: Dr. Christine, Dr. Young Time Provider Notified: 11:27 Provider Requests Autopsy: No Family Requests Autopsy: No Reconstructive Dentist Notified: Yes Date [facility] Notified of : 02/28/22 Time [facility] Notified of : 11:41
[2022-03-03 14:19] LABS: Pneumococcal Antigen Urine Not Detected (Not Detected)
[2022-03-04 05:50] LABS: Legionella pneumophila Ag Ur Not Detected (Not Detected)
== END 2022-02-28 11:27 | disposition expired | DRG 871 ==
LOC: ANHED 22:29 → ANHICU 22:59
PROVIDERS: Internal Medicine; Admitting Provider Internal Medicine; Emergency Provider Emergency Medicine; PCP Family Medicine; Visit Provider Internal Medicine
DX: A41.9 Sepsis, unspecified organism (principal); R65.21 Severe sepsis with septic shock; G93.41 Metabolic encephalopathy; J96.21 Acute and chronic respiratory failure with hypoxia; I21.A1 Myocardial infarction type 2; J18.9 Pneumonia, unspecified organism; B02.8 Zoster with other complications; I48.11 Longstanding persistent atrial fibrillation; I50.32 Chronic diastolic (congestive) heart failure; E87.2 Acidosis; L30.8 Other specified dermatitis; I35.0 Nonrheumatic aortic (valve) stenosis; I95.1 Orthostatic hypotension; R57.0 Cardiogenic shock; Z20.822 Contact with and (suspected) exposure to COVID-19; I25.10 Atherosclerotic heart disease of native coronary artery without angina pectoris; E78.5 Hyperlipidemia, unspecified; I11.0 Hypertensive heart disease with heart failure; G47.33 Obstructive sleep apnea (adult) (pediatric); Z96.651 Presence of right artificial knee joint; I73.9 Peripheral vascular disease, unspecified; Z99.81 Dependence on supplemental oxygen; Z87.891 Personal history of nicotine dependence; E66.9 Obesity, unspecified; Z68.37 Body mass index [BMI] 37.0-37.9, adult; Z66 Do not resuscitate
CPT/HCPCS: 36415; 36600; 71045; 80048; 80053; 81001; 82375; 82533; 82805; 82948; 83050; 83605; 83735; 83880; 84100; 84145; 84443; 84484; 85025; 85027; 86140; 87040; 87449; 87899; 93005; 94002; 94003; 94660; 96361; 96365; 96367; 99285; A9270; C1751; C8929; C9803; J0282; J0330; J0456; J0696; J1720; J1815; J2060; J2250; J2370; J3010; J3475; J7030; J7040; J7060; P9045; P9047; Q9957; U0003; U0005